=== PATIENT | female | born 1950 | race Caucasian/White ===

== ENCOUNTER 2016-11-18 07:57 | Emergency (ER) | payer BC, MEDICARE ==
--- NOTE | 2016-11-18 08:40 | UC ---
UC General HPI - HPI Summary HPI Summary: complaint of intermittent prickling feeling in her legs occurs more with sitting down and lying down before she goes to sleep lasts anywhere from 2 m-30 minutes often has itchy skin,feels itchy -especially on her back sometimes when she is in bed it lasts for approx 1 hour denies back pain,fever and chills denies numbness, weakness in her legs denies pain just random prickling concerned that she got scabies feels anxious about germs and getting infection since she had CVA 05/2016 started on lipitor and xaralto in 05/2016 has appt on 11/22/16 with her primary care provider - History of Current Complaint Chief Complaint: UCSkin Stated Complaint: BILATERAL LEG COMPLAINT Time Seen by Provider: 11/18/16 08:12 Hx Obtained From: Patient Onset/Duration: Lasting Days, Still Present - Allergy/Home Medications Allergies/Adverse Reactions: Allergies Allergy/AdvReac Type Severity Reaction Status Date / Time Sulfa Antibiotics Allergy Intermediate Rash Verified 11/18/16 08:13 Home Medications: Home Medications Atorvastatin* [Lipitor*] 40 mg PO QPM 11/18/16 [History Confirmed 11/18/16] Fluticasone NASAL SPRAY 50MCG* [Flonase NASAL SPRAY 50MCG*] 2 spray BOTH NARES BID 11/18/16 [History Confirmed 11/18/16] Rivaroxaban TAB(*) [Xarelto 20 mg] 20 mg PO QPM 11/18/16 [History Confirmed ] PMH/Surg Hx/FS Hx/Imm Hx Previously Healthy: Yes Neurological History Of: Reports: CVA - 05/2016 - Surgical History Surgical History: Yes Surgery Procedure, Year, and Place: sinus surgery - Family History Known Family History: Positive: None Negative: Cardiac Disease, Hypertension, Diabetes - Social History Occupation: Retired Lives: With Family Alcohol Use: None Substance Use Type: None Smoking Status (MU): Never Smoked Tobacco - Immunization History Most Recent Influenza Vaccination: Not the Season Review of Systems Constitutional: Negative Skin: Negative Eyes: Negative ENT: Negative Respiratory: Negative Cardiovascular: Negative Gastrointestinal: Negative Genitourinary: Negative Motor: Negative Neurovascular: Negative Musculoskeletal: Negative Neurological: Negative Psychological: Anxious All Other Systems Reviewed And Are Negative: Yes Physical Exam Triage Information Reviewed: Yes Appearance: No Pain Distress, Well-Nourished Vital Signs: Initial Vital Signs Temp 98.4 F 11/18/16 08:02 Pulse 78 11/18/16 08:02 Resp 16 11/18/16 08:02 BP 142/56 11/18/16 08:02 Vital Signs Reviewed: Yes Eyes: Positive: Conjunctiva Clear, Other: - PERRL ENT: Positive: Pharynx normal, TMs normal. Negative: Nasal congestion Neck: Positive: Supple, No Lymphadenopathy Respiratory: Positive: Lungs clear, Normal breath sounds, No respiratory distress Cardiovascular: Positive: RRR, No Murmur, Pulses Normal Abdomen Description: Positive: Nontender, No Organomegaly, Soft. Negative: CVA Tenderness (R), CVA Tenderness (L), Distended, Guarding Bowel Sounds: Positive: Present Musculoskeletal: Positive: No Edema Neurological: Positive: Alert, Other: - PERRL, EOMI, negative Romberg Psychological: Positive: Other: - anxious Skin Exam: Normal Course/Dx - Differential Dx - Multi-Symptom Differential Diagnoses: Other - anxiety, lower back pain, dermatitis Provider Diagnoses: dry skin. anxiety Discharge - Discharge Plan Condition: Stable Disposition: HOME Patient Education Materials: Anxiety (ED) Referrals: Joe Herron MD [Primary Care Provider] - Additional Instructions: You have dry skin which can cause itching. start using moisturizing lotion frequently keep your appointment with your primary care provider this week Please review your discharge instructions. If your symptoms do not improve please call your primary care provider or return to urgent care
[2016-11-18 09:52] VITALS: BP 132/64
== END 2016-11-18 09:50 | disposition home or self-care (01) ==
LOC: UCCORT 07:57
DX: L85.3 Xerosis cutis (principal); F41.9 Anxiety disorder, unspecified; Z88.2 Allergy status to sulfonamides
CPT/HCPCS: 99211; G0463

== ENCOUNTER 2017-04-02 17:43 | Emergency (ER) | payer MEDICARE, BC ==
[2017-04-02 18:09] VITALS: BP 120/55
[2017-04-02] MEDS ORDERED: Acetaminophen TAB* 325 MG PO ONE (18:46)
--- NOTE | 2017-04-02 18:52 | UC ---
Headache HPI - HPI Summary HPI Summary: 66 yo female with bitemporal BLEDSOE since about noon 5/10 nagging pressure sensation hx CVA (?ASD) on blood thinner no n/v/d no photophobia no stiff neck has had similar bledsoe's on and off for a week - History Of Current Complaint Chief Complaint: UCHeadache Stated Complaint: HEADACHE Time Seen by Provider: 04/02/17 18:20 Hx Obtained From: Patient Onset/Duration: Gradual Onset, Lasting Hours Onset Of Symptoms: Gradual Initially Headache Was: Moderate Pain Intensity: 5 Pain Scale Used: 0-10 Numeric Timing: Constant Character: Pressure Location of Headache: Temporal Aggravating Factor: Nothing Allevating Factors: Nothing Associated Signs And Symptoms: Positive: Sinus Pressure - chrinic sinus issues. Negative: Dizziness, Seizure, Nausea, Vomiting, Fever, Neck Pain, Neck Stiffness, Decreased LOC, Visual Changes - Allergies/Home Medications Allergies/Adverse Reactions: Allergies Allergy/AdvReac Type Severity Reaction Status Date / Time Sulfa Antibiotics Allergy Intermediate Rash Verified 04/02/17 18:09 PMH/Surg Hx/FS Hx/Imm Hx Previously Healthy: Yes Endocrine History: Dyslipidemia Other Cardiovascular History: ?ASD GI/ History: Gastroesophageal Reflux Other GI/ History: ULCERATIVE COLITIS Neurological History: CVA - Surgical History Surgical History: Yes Surgery Procedure, Year, and Place: sinus surgery - Family History Known Family History: Positive: None, Other - TIAs Negative: Cardiac Disease, Hypertension, Diabetes - Social History Alcohol Use: None Substance Use Type: None Smoking Status (MU): Never Smoked Tobacco - Immunization History Most Recent Influenza Vaccination: Not the Season Review of Systems Constitutional: Negative Skin: Negative Eyes: Negative ENT: Sinus Congestion Respiratory: Negative Cardiovascular: Negative Gastrointestinal: Negative Genitourinary: Negative Motor: Negative Neurovascular: Negative Musculoskeletal: Negative Neurological: Headache Psychological: Negative All Other Systems Reviewed And Are Negative: Yes Physical Exam Triage Information Reviewed: Yes Appearance: Well-Appearing, No Pain Distress, Well-Nourished Vital Signs: Initial Vital Signs Temp 98.7 F 04/02/17 17:59 Pulse 79 04/02/17 17:59 BP 120/55 04/02/17 17:59 Pulse Ox 100 04/02/17 17:59 Vital Signs Reviewed: Yes Eyes: Positive: Conjunctiva Clear, Other: - EOMI/PERRL ENT: Positive: Normal ENT inspection, Hearing grossly normal, Pharynx normal, TMs normal. Negative: Tonsillar swelling, Tonsillar exudate, Trismus, Muffled/ hoarse voice Dental Exam: Normal Neck: Positive: Supple, Nontender, No Lymphadenopathy, Other: - no bruits Respiratory: Positive: Lungs clear, Normal breath sounds, No respiratory distress, No accessory muscle use Cardiovascular: Positive: RRR, No Murmur, Pulses Normal Musculoskeletal: Positive: Strength Intact, ROM Intact Neurological: Positive: Alert, Muscle Tone Normal, Other: - normal gait/normal speech/no facial droop/no weakness Skin Exam: Normal Diagnostics - Radiology No standard instances Xray Interpretation: No Acute Changes Radiology Interpretation Completed By: Radiologist Headache Course/Dx - Differential Dx/Diagnosis Provider Diagnoses: headache of uncertain cause Discharge - Discharge Plan Condition: Stable Disposition: HOME Patient Education Materials: Acute Headache (ED) Referrals: Joe Herron MD [Primary Care Provider] - 2 Days (recheck in 1-2 days) Additional Instructions: tylenol
--- NOTE | 2017-04-02 19:07 | RAD ---
INDICATION: Headaches. History of CVA. COMPARISON: None TECHNIQUE: Noncontrast axial source images were acquired from the skull base to the vertex. FINDINGS: Ventricles/sulci: The ventricles and cisterns are normal in size and configuration for age. Brain parenchyma: There is no acute focal parenchymal finding, evidence of intracranial mass, or intracranial mass effect. There is a CSF intensity hypodensity in the left frontal white matter consistent with a prior ischemic insult. Intracranial hemorrhage:None. Extra-axial spaces: There is a probable, small (5 mm) left frontoparietal convexity subdural hygroma. Calvarium: There is no calvarial fracture or other calvarial abnormality. Scalp: There is no evidence of scalp or extracalvarial soft tissue abnormality. Paranasal sinuses/mastoid: The paranasal sinuses and mastoid air cells are clear. Other: None. IMPRESSION: NO ACUTE INTRACRANIAL FINDINGS. 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
== END 2017-04-02 20:02 | disposition home or self-care (01) ==
LOC: UCCORT 17:43
DX: R51 Headache (principal); J34.89 Other specified disorders of nose and nasal sinuses; E78.5 Hyperlipidemia, unspecified; K21.9 Gastro-esophageal reflux disease without esophagitis; Z86.73 Personal history of transient ischemic attack (TIA), and cerebral infarction without residual deficits; Z88.2 Allergy status to sulfonamides
CPT/HCPCS: 70450; 99211; G0463

== ENCOUNTER 2017-10-25 09:18 | Emergency (ER) | payer MEDICARE, BC ==
--- OUTSIDE RECORDS SUMMARY | 2017-10-25 10:38 | XMS REPORT ---
:1950 External Reference #:[id number] Author Organization [facility] Address [address] [address] Phone [phone] Care Team Providers Name Role Phone Joe Herron MD Care Team Information Financial Compliance Manager Unavailable Payers Type Date Identification Numbers Payment Provider Subscriber Medicare Primary Effective: Policy Number: Medicare Rupinder Piña 2016 [id number] Group Name: Federal [address] PayID: [id number] [place] [address] Medigap Part B Effective: Policy Number: [facility] Commercial Rupinder Quinteros 2011 [id number] Ayana Group Name: Individual [address] [address] PayID: [id number] GRETCH[address] [place] [id number] Problems Date Description Provider Status Onset: 06/27/2011 Disorders of bilirubin excretion Joe Herron MD Active Onset: 09/17/2010 Kidney stone Joe Herron MD Active Onset: 11/09/2009 Disorder of lipid metabolism Joe Herron MD Active Onset: 06/04/2007 Mitral valve disorder Joe Herron MD Active Onset: 02/23/2007 Chronic ulcerative proctitis Joe Herron MD Active Onset: 02/23/2007 Migraine with typical aura Joe Herron MD Active Onset: 06/27/2006 Disorder of biliary tract Joe Herron MD Active Onset: 06/27/2006 Gastritis Joe Herron MD Active Onset: 10/21/2005 Atopic dermatitis Joe Herron MD Active Onset: 07/15/2005 Menopausal and postmenopausal Joe Herron MD Active disorders Onset: 05/08/2005 Degenerative joint disease Joe Herron MD Active involving multiple joints Onset: 12/20/2014 Bronchiolectasis Joe Herron MD Active Onset: 11/10/2013 Chronic rhinitis Active Onset: 06/27/2015 Atrophic gastritis Joe Herron MD Active Onset: 06/27/2015 Neutropenia Joe Herron MD Active Onset: 06/04/2016 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 Onset: 06/04/2016 Ostium secundum type atrial septal Joe Herron MD Active defect Onset: 05/07/2005 Osteochondropathy Joe Herron MD Inactive Inactive: 10/15/2017 Onset: 11/10/2013 Chronic sinusitis Inactive Inactive: 10/15/2017 Onset: 11/10/2013 Hypertrophy of nasal turbinates Inactive Inactive: 10/15/2017 Family History Date Family Member(s) Problem(s) Comments Father due to eDEMA 94 () Mother due to CVA () First Son Alive And Well Siblings None Paternal Grandfather DM2 Paternal Grandmother Cancer, Breast Paternal Aunts Cancer, Colon 63 Paternal Aunts Cancer, Breast Social History Type Date Description Comments Marital Status 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 ETOH Use Denies alcohol use Smoking Patient has never smoked Allergies, Adverse Reactions, Alerts Date Description Reaction Status Severity Comments 05/07/2005 Tetracycline active GI 12/20/2014 Sulfa Drugs active Hives;SOB 05/07/2005 Amoxicillin inactive GI Medications Medication Date Status Form Strength Qnty SIG Indications Ordering Provider Calcium 600+D Active Tablets 600-400mg-U OTC 1 twice a M85.89 Digiovanna 018 nit day Joe MD Probiotic - Active OTC Digiovanna Minoo Colon Joe [facility] MD Prednisone Active Tablets 10mg 70tabs take w/ K51.20 Digiovanna 017 food Joe once MD daily as directed, taper over 4 weeks if needed for colitis flare Atorvastatin Active Tablets 20mg 90tabs 1 by I63.412 Digiovanna Calcium 017 mouth , Joe, every day E78.0 E78.9 Xarelto 06/24/2016 Active Tablets 20mg 30tabs 1 by mouth I63.412 Digiovanna, every day MD Joe with evening meal Mesalamine 08/11/2015 Active Enema 4gm K51.20 Syam,Biswarup Meclizine HCL 06/07/2015 Active Tablets 25mg 30tabs take 1 H83.09 Digiovanna, tablet by MD Joe mouth four times daily as needed for dizziness Ranitidine 12/10/2014 Active Tablets 150mg 360tabs 2 by mouth K29.70 Digiovanna, HCL twice a day MD Joe - mdd 4 K29.50 Flonase 06/21/2014 Active Suspension 50mcg/Act 16units 1 spr each J31.0 Unknown nostril twice a day Loratadine 05/25/2014 Active Tablets 10mg 1 by mouth J31.0 Digiovan every day na, as needed Joe allergies J Metronidazole 05/13/2014 Active Gel 0.75% 45gm apply to 695.3 Gould, face prn Darnell DO Balsalazide 05/19/2008 Active Capsules 750mg 270caps 3 by mouth K51.20 Digiovan Disodium three na, times a Joe, day Azathioprine Active Tablets 50mg 90tabs 3 by mouth K51.20 Digiovan once every na, day MD Joe Clindamycin 05/24/2017 Hx Capsules 150mg 15caps 1 pill 3 M27.2 Digiovan HCL - times a na, 05/29/2017 day for 5 Joe, days Ferrous 07/02/[address] Khan(65Fe) OTC 1 by mouth D64.9 Digiovan Sulfate - mg once daily na, 07/24/2016 w/ food MD Joe Prednisone 07/01/2016 Hx Tablets 10mg 35tabs Take w/ K51.21 Digiovan - food: 2 1 na, 07/16/2016 pills Joe, twice a day for 5d, 1 pill twice a day for 5 d, 1 pill once a day for 5d Atorvastatin 07/01/2016 Hx Tablets 40mg 30tabs 1 by mouth I63.41 Digiovan Calcium - every day 2 na, 11/22/2016 MD Joe E78.0 Pradaxa 05/30/2016 - Hx Capsules 150mg take one I63.412 Digiovanna, 06/24/2016 capsule by MD Joe mouth twice a day Atorvastatin 05/30/2016 - Hx Tablets 80mg take one I63.412 Digiovanna, Calcium 07/01/2016 tablet by MD Joe mouth every evening E78.0 Prednisone 04/19/2016 - Hx Tablets 10mg 42tabs w/ food: 4 K51.20 Digiovanna, 05/09/2016 pills qd for MD Joe 3 days, 3 pills qd for 5 days, 2 pills qd for 5 days , 1 pill qd x 5 days then dc(replaces prior) Prednisone 04/17/2016 - Hx Tablets 10mg 21tabs 4 pills by Luis Fernando, 04/19/2016 mouth x 2 Darnell, DO days, 3 by mouth daily x 2 days, 2 by mouth daily x 2 days, 1 by mouth daily until gone Triamcinolone 04/16/2016 - Hx Cream 0.025% 15gm apply to LEFT Gould, Acetonide 04/30/2016 foot twice a Darnell, DO day x 2 weeks routinely, then as needed Clotrimazole 04/11/2016 - Hx Cream 1% 15gm apply to LEFT B35.9 Gould, 06/12/2017 foot twice a Darnell, DO day until resolved Oxybutynin 03/20/2016 - Hx Tablets ER 5mg 30tabs 1 po daily R30.0 Gould , Chloride ER 06/12/2017 24HR Darnell, DO Levofloxacin 09/20/2015 - Hx Tablets 250mg 7tabs 1 po daily [id number] Digiovanna, 09/27/2015 for 7 days Gauri, [employer] Levofloxacin 06/27/2015 - Hx Tablets 250mg 7tabs 1 pill by Ginny Whitevanindira, 07/04/2015 mouth once MD Joe daily for 7 days Levofloxacin 05/26/2015 - Hx Tablets 250mg 7tabs 1 pill by Ginny Delongiovanindira, 06/02/2015 mouth once MD Joe daily for 7 days Omeprazole 04/21/2015 - Hx Capsules 20mg 60caps 1 by mouth 786.9 Digiovanna, 05/09/2015 DR twice a day MD Joe before meals 535.50 Levofloxacin 02/03/2015 - Hx Tablets 250mg 7tabs 1 by mouth 461.9 Digiovanna, 04/17/2015 daily for Gauri, [employer] 7 days Prednisone 01/10/2015 - Hx Tablets 10mg 60tabs 1 by mouth Unknown 02/23/2015 every morning prn Levofloxacin 12/20/2014 - Hx Tablets 250mg 7tabs 1 pill by 461.9 Digiovanna, 12/27/2014 mouth once MD Joe daily for 7 days Xyzal 11/08/2014 - Hx Tablets 5mg 30tabs 1 by mouth Unknown 04/17/2015 every day Triamcinolone 06/27/2013 - Hx Paste 0.1% 5gm apply to Digiovanna, Acetonide 06/12/2017 affected MD Joe area up to four times daily as needed Ranitidine 150 06/08/2013 - Hx Tablets 150mg 360tabs 1 or 2 by 535.50 Digiovanna, Maximum 12/10/2014 mouth Joe Hyatt MD Strength twice a day Ibuprofen - Hx Tablets 200mg 2 PO tid Digiovanna, 06/12/2017 prn Joe Hyatt MD Mesalamine-Coby - Hx Kit 4gm 1 pr qhs Digiovanna, nser 08/21/2014 Joe Hyatt MD Ventolin HFA - Hx Aerosol 108(90B 2 puffs J47.9 [place], 06/12/2017 ase) qid as MD Abner mcg/Act needed for sob Fluticasone - Hx Suspension 50mcg/A 1units 2 sprays Unknown Propionate 04/17/2015 ct each nostril every day Prednisone - Hx Tablets 10mg as Joanne Oneill 11/22/2016 directed x 12 days Fergon - Hx Tablets 240(27F D64.9 Unknown 10/03/2016 e) mg Amoxicillin - Hx Capsules 500mg 1 by mouth Unknown 06/12/2017 three times a day Immunizations CPT Code Status Date Vaccine Reaction Lot # [id number] Given 10/15/2017 Pneumococcal 23 Immunization [id number] Adult Or Immunosuppressed Patient 08156 Given 07/31/2016 Tdap (Adacel) Ages 7 And Above [id number] Only 30463 Given 07/20/2015 Prevnar 13 Pneumococal Conjugate [id number] Vaccine 28582 Given 10/21/2012 Pneumococcal 23 Immunization VIS DATE 06/06/09 Adult Or Immunosuppressed Patient 21100 Given 08/07/2009 Afluria Or Fluvirin Flu Vac Intramuscular 46609 Given 07/26/2008 Afluria Or Fluvirin Flu Vac Intramuscular 59152 Given 12/14/2004 Immunization Td 7 Yrs Or Older 61361 Refused 10/21/2017 Influenza Vac, 3 Yrs & Older, Quadrivalent, Split, Im Use 77838 Refused 06/27/2015 Prevnar 13 Pneumococal Conjugate DOESN'T WANT TODAY; MADE Vaccine EARLY AM NV FOR 11-5 Vital Signs Date Vital Result Comment 10/21/2017 Weight 114.00 lb Heart Rate 70 /min BP Systolic 116 mmHg BP Diastolic 64 mmHg Respiratory Rate 14 /min Height 61 inches 5'1" BMI (Body Mass Index) 21.5 kg/m2 10/15/2017 Weight 114.00 lb Heart Rate 72 /min BP Systolic 120 mmHg BP Diastolic 80 mmHg Respiratory Rate 18 /min Height 61 inches 5'1" BMI (Body Mass Index) 21.5 kg/m2 08/07/2017 Weight 112.00 lb Heart Rate 70 /min BP Systolic 126 mmHg BP Diastolic 68 mmHg 06/13/2017 Body Temperature 98.2 F Weight 110.00 lb Heart Rate 76 /min BP Systolic 120 mmHg BP Diastolic 68 mmHg Respiratory Rate 16 /min Height 61 inches 5'1" BMI (Body Mass Index) 20.8 kg/m2 06/02/2017 Weight 110.00 lb Heart Rate 74 /min BP Systolic 120 mmHg BP Diastolic 80 mmHg Respiratory Rate 18 /min Height 61 inches 5'1" BMI (Body Mass Index) 20.8 kg/m2 05/28/2017 Body Temperature 97.6 F Weight 107.56 lb Heart Rate 82 /min BP Systolic 128 mmHg BP Diastolic 78 mmHg Respiratory Rate 18 /min Height 61 inches 5'1" BMI (Body Mass Index) 20.3 kg/m2 05/24/2017 Body Temperature 97.7 F Weight 110.00 lb Heart Rate 72 /min BP Systolic 120 mmHg BP Diastolic 70 mmHg Respiratory Rate 18 /min Height 61 inches 5'1" BMI (Body Mass Index) 20.8 kg/m2 04/25/2017 Weight 109.00 lb Heart Rate 74 /min BP Systolic 120 mmHg BP Diastolic 76 mmHg Respiratory Rate 18 /min Height 61 inches 5'1" BMI (Body Mass Index) 20.6 kg/m2 04/04/2017 Weight 111.00 lb Heart Rate 72 /min BP Systolic 112 mmHg BP Diastolic 70 mmHg Respiratory Rate 18 /min Height 61 inches 5'1" BMI (Body Mass Index) 21.0 kg/m2 02/10/2017 Weight 113.00 lb Heart Rate 74 /min BP Systolic 132 mmHg BP Diastolic 78 mmHg Respiratory Rate 18 /min Height 61 inches 5'1" BMI (Body Mass Index) 21.3 kg/m2 11/22/2016 Weight 107.00 lb Heart Rate 72 /min BP Systolic 120 mmHg BP Diastolic 70 mmHg Respiratory Rate 18 /min Height 61 inches 5'1" BMI (Body Mass Index) 20.2 kg/m2 11/18/2016 Weight 107.00 lb Heart Rate 74 /min BP Systolic 130 mmHg BP Diastolic 80 mmHg Respiratory Rate 18 /min Height 61.25 inches 5'1.25" BMI (Body Mass Index) 20.1 kg/m2 11/08/2016 Weight 105.00 lb Heart Rate 74 /min BP Systolic 122 mmHg BP Diastolic 80 mmHg Respiratory Rate 18 /min Height 61.25 inches 5'1.25" BMI (Body Mass Index) 19.7 kg/m2 10/28/2016 Weight 106.00 lb Heart Rate 72 /min BP Systolic 120 mmHg BP Diastolic 76 mmHg Respiratory Rate 18 /min Height 61.25 inches 5'1.25" BMI (Body Mass Index) 19.9 kg/m2 10/15/2016 Body Temperature 98.5 F Weight 106.00 lb Heart Rate 74 /min BP Systolic 112 mmHg BP Diastolic 70 mmHg Respiratory Rate 17 /min Height 61.25 inches 5'1.25" BMI (Body Mass Index) 19.9 kg/m2 08/14/2016 Weight 102.00 lb Heart Rate 74 /min BP Systolic 120 mmHg BP Diastolic 80 mmHg Respiratory Rate 18 /min Height 61.25 inches 5'1.25" BMI (Body Mass Index) 19.1 kg/m2 08/10/2016 Body Temperature 97.9 F Weight 102.00 lb Heart Rate 86 /min BP Systolic 108 mmHg BP Diastolic 74 mmHg Respiratory Rate 18 /min Height 61.25 inches 5'1.25" O2 % BldC Oximetry 99 % Ra BMI (Body Mass Index) 19.1 kg/m2 08/09/2016 Body Temperature 98.2 F Weight 101.00 lb Heart Rate 74 /min BP Systolic 120 mmHg BP Diastolic 80 mmHg Respiratory Rate 18 /min Height 61.25 inches 5'1.25" BMI (Body Mass Index) 18.9 kg/m2 07/24/2016 Weight 101.00 lb Heart Rate 74 /min BP Systolic 110 mmHg BP Diastolic 80 mmHg Respiratory Rate 18 /min Height 61.25 inches 5'1.25" BMI (Body Mass Index) 18.9 kg/m2 07/01/2016 Weight 102.00 lb Heart Rate 68 /min BP Systolic 118 mmHg BP Diastolic 70 mmHg Respiratory Rate 16 /min Height 61.5 inches 5'1.50" 04/19/16 BMI (Body Mass Index) 19.0 kg/m2 06/21/2016 Weight 101.00 lb Heart Rate 72 /min BP Systolic 116 mmHg BP Diastolic 62 mmHg Respiratory Rate 18 /min Height 61.5 inches 5'1.50" BMI (Body Mass Index) 18.8 kg/m2 06/14/2016 Weight 102.00 lb Heart Rate 64 /min BP Systolic 114 mmHg BP Diastolic 70 mmHg Respiratory Rate 18 /min Height 61.5 inches 5'1.50" BMI (Body Mass Index) 19.0 kg/m2 06/04/2016 Weight 102.00 lb Heart Rate 72 /min BP Systolic 130 mmHg BP Diastolic 80 mmHg Respiratory Rate 18 /min Height 61.5 inches 5'1.50" BMI (Body Mass Index) 19.0 kg/m2 05/27/2016 Body Temperature 98.5 F Weight 104.00 lb Heart Rate 82 /min BP Systolic 110 mmHg BP Diastolic 70 mmHg Respiratory Rate 16 /min Height 61.5 inches 5'1.50" O2 % BldC Oximetry 96 % Ra BMI (Body Mass Index) 19.3 kg/m2 04/19/2016 Weight 102.00 lb Heart Rate 76 /min BP Systolic 112 mmHg BP Diastolic 62 mmHg Respiratory Rate 18 /min Height 61.5 inches 5'1.50" BMI (Body Mass Index) 19.0 kg/m2 04/16/2016 Body Temperature 97.8 F Weight 103.00 lb Heart Rate 82 /min BP Systolic 110 mmHg BP Diastolic 76 mmHg Respiratory Rate 18 /min Height 61.5 inches 5'1.50" BMI (Body Mass Index) 19.1 kg/m2 04/11/2016 Weight 110.00 lb Heart Rate 72 /min BP Systolic 118 mmHg BP Diastolic 70 mmHg Respiratory Rate 18 /min Height 61.5 inches 5'1.50" BMI (Body Mass Index) 20.4 kg/m2 03/20/2016 Body Temperature 97.3 F Weight 112.00 lb Heart Rate 72 /min BP Systolic 112 mmHg BP Diastolic 68 mmHg Respiratory Rate 18 /min 02/19/2016 Weight 109.00 lb Heart Rate 72 /min BP Systolic 124 mmHg BP Diastolic 72 mmHg Respiratory Rate 18 /min 01/02/2016 Weight 112.00 lb Heart Rate 74 /min BP Systolic 122 mmHg BP Diastolic 78 mmHg Respiratory Rate 18 /min Height 60.75 inches 5'0.75" BMI (Body Mass Index) 21.3 kg/m2 11/17/2015 Weight 122.00 lb Heart Rate 74 /min BP Systolic 120 mmHg BP Diastolic 74 mmHg Respiratory Rate 18 /min Height 60.75 inches 5'0.75" BMI (Body Mass Index) 23.2 kg/m2 10/28/2015 Body Temperature 98.1 F Weight 112.56 lb Heart Rate 78 /min BP Systolic 118 mmHg BP Diastolic 62 mmHg Respiratory Rate 18 /min 09/20/2015 Body Temperature 98.0 F Weight 118.00 lb Heart Rate 72 /min BP Systolic 132 mmHg BP Diastolic 78 mmHg Respiratory Rate 18 /min Height 60.75 inches 5'0.75" BMI (Body Mass Index) 22.5 kg/m2 08/15/2015 Body Temperature 98.5 F Weight 114.00 lb Heart Rate 72 /min BP Systolic 110 mmHg BP Diastolic 60 mmHg Respiratory Rate 18 /min Height 60.75 inches 5'0.75" BMI (Body Mass Index) 21.7 kg/m2 06/27/2015 Weight 113.00 lb Heart Rate 74 /min BP Systolic 122 mmHg L/Reg BP Diastolic 76 mmHg L/Reg Respiratory Rate 16 /min Height 60.75 inches 5'0.75" BMI (Body Mass Index) 21.5 kg/m2 06/07/2015 Weight 114.00 lb Heart Rate 66 /min BP Systolic 118 mmHg R/Reg BP Diastolic 72 mmHg R/Reg BP Systolic Sitting 110 mmHg R/Reg P: 66 BP Diastolic Sitting 62 mmHg R/Reg P: 66 BP Systolic Standing 124 mmHg R/Reg P: 84 BP Diastolic Standing 82 mmHg R/Reg P: 84 Respiratory Rate 18 /min Height 60.9 inches 5'0.90" BMI (Body Mass Index) 21.6 kg/m2 05/26/2015 Body Temperature 97.7 F Weight 112.00 lb Heart Rate 76 /min BP Systolic 108 mmHg L/Reg BP Diastolic 68 mmHg L/Reg Respiratory Rate 21 /min Height 60.9 inches 5'0.90" BMI (Body Mass Index) 21.2 kg/m2 05/09/2015 Weight 114.00 lb Heart Rate 72 /min BP Systolic 116 mmHg L/Reg BP Diastolic 68 mmHg L/Reg Respiratory Rate 17 /min Height 60.9 inches 5'0.90" BMI (Body Mass Index) 21.6 kg/m2 04/21/2015 Weight 112.00 lb Heart Rate 84 /min BP Systolic 114 mmHg L/Reg BP Diastolic 72 mmHg L/Reg Respiratory Rate 17 /min Height 60.9 inches 5'0.90" BMI (Body Mass Index) 21.2 kg/m2 04/17/2015 Weight 111.00 lb Heart Rate 72 /min BP Systolic 114 mmHg BP Diastolic 68 mmHg Respiratory Rate 18 /min Height 60.9 inches 5'0.90" BMI (Body Mass Index) 21.0 kg/m2 02/03/2015 Body Temperature 98.6 F Weight 110.00 lb Heart Rate 74 /min BP Systolic 106 mmHg BP Diastolic 58 mmHg Respiratory Rate 17 /min Height 60.9 inches 5'0.90" O2 % BldC Oximetry 93 % BMI (Body Mass Index) 20.9 kg/m2 12/20/2014 Weight 112.00 lb Up 2# Heart Rate 76 /min BP Systolic 132 mmHg R/Reg BP Diastolic 74 mmHg R/Reg Respiratory Rate 16 /min Height 60.9 inches 5'0.90" BMI (Body Mass Index) 21.2 kg/m2 11/26/2014 Weight 110.38 lb Heart Rate 72 /min BP Systolic 116 mmHg BP Diastolic 62 mmHg Respiratory Rate 18 /min 11/07/2014 Weight 112.00 lb Up 2# Heart Rate 74 /min BP Systolic 142 mmHg R/Reg BP Diastolic 72 mmHg R/Reg Respiratory Rate 17 /min Height 60.9 inches 5'0.90" BMI (Body Mass Index) 21.2 kg/m2 07/19/2014 Weight 110.00 lb Same Heart Rate 72 /min BP Systolic 136 mmHg L/Reg BP Diastolic 68 mmHg L/Reg Respiratory Rate 18 /min Height 60.9 inches 5'0.90" O2 % BldC Oximetry 98 % Ra At Rest 07/05/2014 Weight 110.50 lb Down 1# Heart Rate 72 /min BP Systolic 126 mmHg L/Reg BP Diastolic 76 mmHg L/Reg Respiratory Rate 16 /min Height 60.9 inches 5'0.90" 05/25/2014 Weight 111.00 lb Down 3# Heart Rate 78 /min BP Systolic 108 mmHg L/Reg BP Diastolic 66 mmHg L/Reg Respiratory Rate 20 /min Height 60.9 inches 5'0.90" 03/02/2014 Weight 114.00 lb Heart Rate 72 /min BP Systolic 120 mmHg BP Diastolic 78 mmHg Respiratory Rate 18 /min 02/11/2014 Body Temperature 98.1 F Weight 113.00 lb Heart Rate 80 /min BP Systolic 104 mmHg BP Diastolic 50 mmHg Respiratory Rate 18 /min Height 60.9 inches 5'0.90" Results Test Date Test Result H/L Range Note Lipid Treatment 09/29/2017 Cholesterol 96 mg/dL 50-199 1 Triglycerides 59 mg/dL 30-200 1 HDL 48 mg/dL 35-85 1, 2 Chol/ HDL Ratio 2.0 ratio Low 3.7-5.6 1 VLDL 12 mg/dL 2-29 1 LDL (Calc) 37 mg/dL 20-99 1, 3 Alt 29 U/L 3-42 1 Ast 29 U/L 8-42 1 CBC With Auto Diff 09/29/2017 WBC 5.1 K/uL 4.1-11.0 1 RBC 3.45 M/uL Low 4.00-5.40 1 Hemoglobin 13.0 gm/dL 12.0-16.0 1 Hematocrit 37.9 % 36.0-47.0 1 MCV 109.9 fL High 80.0-97.0 1 MCH 37.8 pg High 27.0-32.0 1 MCHC 34.4 g/dL 32.0-36.0 1 RDW 17.3 % High 11.5-14.5 1 PLT Count 292 K/ul 140-400 1 MPV 9.2 FL 7.1-10.7 1 Neutrophil 69.4 % 35.0-75.0 1 Lymphocyte 18.6 % 16.0-52.0 1 Monocyte 8.1 % 2.0-10.0 1 Eosinophil 2.9 % 0.0-5.0 1 Basophil 1.0 % 0.0-4.0 1 Abs Neutrophils 3.6 K/uL 2.1-8.0 1 Abs Lymphocytes 1.0 K/uL 0.8-5.5 1 Abs Monocytes 0.4 K/uL 0.1-1.0 1 Abs Eosinophils 0.1 K/uL 0.0-0.5 1 Abs Basophils 0.0 K/uL 0.0-0.3 1 Laboratory test finding 09/29/2017 Vitamin D 25 Hydroxy 52 ng/mL 30-100 1, 4 Basic (BMP) 09/29/2017 Sodium 140 mmol/L 135-146 1, 5 Potassium 3.9 mmol/L 3.5-5.2 1 Chloride# 100 mmol/L 97-110 1, 6 Carbon Dioxide 31 mmol/L 24-34 1 Glucose 84 mg/dL 70-105 1 BUN 13 mg/dL 6-26 1 Creatinine 0.7 mg/dL 0.5-1.4 1 Calcium 9.7 mg/dL 8.5-10.2 1 Non Kathleen Egfr >60 >60 1, 7 Kathleen Egfr >60 >60 1, 8 Anion Gap 9 mmol/L 7-16 1, 9 CBC With Auto Diff 08/07/2017 WBC 4.6 K/uL 4.1-11.0 RBC 3.60 M/uL Low 4.00-5.40 Hemoglobin 13.7 gm/dL 12.0-16.0 Hematocrit 40.4 % 36.0-47.0 MCV 112.4 fL High 80.0-97.0 MCH 38.0 pg High 27.0-32.0 MCHC 33.8 g/dL 32.0-36.0 RDW 15.8 % High 11.5-14.5 PLT Count 282 K/ul 140-400 MPV 9.7 FL 7.1-10.7 Neutrophil 74.4 % 35.0-75.0 Lymphocyte 15.6 % Low 16.0-52.0 Monocyte 5.8 % 2.0-10.0 Eosinophil 3.6 % 0.0-5.0 Basophil 0.6 % 0.0-4.0 Abs Neutrophils 3.4 K/uL 2.1-8.0 Abs Lymphocytes 0.7 K/uL Low 0.8-5.5 Abs Monocytes 0.3 K/uL 0.1-1.0 Abs Eosinophils 0.2 K/uL 0.0-0.5 Abs Basophils 0.0 K/uL 0.0-0.3 Laboratory test finding 08/07/2017 Ferritin 77.7 ng/ml 11.0-306.0 Iron, Total 124 g/dL 50-170 Vitamin B12 415 pg/mL 180-914 Laboratory test 06/13/2017 Urine Culture Microbiology res 10 finding <SEE NOTE> Affirm 06/13/2017 Trichomonas Negative Negative Vaginalis Gardnerella Vaginalis Negative Negative Mony Species Negative Negative Lipid Treatment 03/26/2017 Cholesterol 69 mg/dL 50-199 11 Triglycerides 38 mg/dL 30-200 11 HDL 37 mg/dL 35-85 11, 12 Chol/ HDL Ratio 1.9 ratio Low 3.7-5.6 11 VLDL 8 mg/dL 2-29 11 LDL (Calc) 25 mg/dL 20-99 11, 13 Alt 24 U/L 3-42 11 Ast 30 U/L 8-42 11 CBC With Auto Diff 03/26/2017 WBC 3.3 K/uL Low 4.1-11.0 11 RBC 3.46 M/uL Low 4.00-5.40 11 Hemoglobin 12.8 gm/dL 12.0-16.0 11 Hematocrit 38.4 % 36.0-47.0 11 MCV 111.0 fL High 80.0-97.0 11 MCH 37.0 pg High 27.0-32.0 11 MCHC 33.4 g/dL 32.0-36.0 11 RDW 15.8 % High 11.5-14.5 11 PLT Count 242 K/ul 140-400 11 Neutrophil 69.3 % 35.0-75.0 11 Lymphocyte 18.7 % 16.0-52.0 11 Monocyte 5.9 % 2.0-10.0 11 Eosinophil 5.0 % 0.0-5.0 11 Basophil 1.1 % 0.0-4.0 11 Abs Neutrophils 2.3 K/uL 2.1-8.0 11 Abs Lymphocytes 0.6 K/uL Low 0.8-5.5 11 Abs Monocytes 0.2 K/uL 0.1-1.0 11 Abs Eosinophils 0.2 K/uL 0.0-0.5 11 Abs Basophils 0.0 K/uL 0.0-0.3 11 Basic (BMP) 03/26/2017 Sodium 143 mmol/L 135-146 11, 14 Potassium 3.9 mmol/L 3.5-5.2 11 Chloride# 105 mmol/L 97-110 11, 15 Carbon Dioxide 31 mmol/L 24-34 11 Glucose 84 mg/dL 70-105 11 BUN 16 mg/dL 6-26 11 Creatinine 0.7 mg/dL 0.5-1.4 11 Calcium 9.7 mg/dL 8.5-10.2 11 Non Kathleen Egfr >60 >60 11, 16 Kathleen Egfr >60 >60 11, 17 Anion Gap 7 mmol/L 7-16 11, 18 Laboratory test finding 02/10/2017 Cytology Fluid Specimen SEE NOTE 19 Basic Metabolic Panel 12/30/2016 Glucose 122 mg/dL High 74-106 20 BUN 18 mg/dL 7-18 20 Creatinine 0.7 mg/dL 0.6-1.3 20 Glom Filtration Rate, Estimate >60 mL/min >60 20 If >60 mL/min >60 20, 21 BUN/Creat 25.7 ratio 20 Sodium 140 mmol/L 136-145 20 Potassium 4.9 mmol/L 3.5-5.1 20 Chloride 107 mmol/L 98-107 20 Carbon Dioxide 28 mmol/L 21-32 20 Anion Gap 5 mEq/L Low 8-16 20 Calcium 9.5 mg/dL 8.5-10.1 20 Lipid Treatment 11/15/2016 Cholesterol 76 mg/dL 50-199 22 Triglycerides 55 mg/dL 30-200 22 HDL 39 mg/dL 35-85 22, 23 Chol/ HDL Ratio 2.0 ratio Low 3.7-5.6 22 VLDL 11 mg/dL 2-29 22 LDL (Calc) 26 mg/dL 20-99 22, 24 Alt 25 U/L 3-42 22 Ast 33 U/L 8-42 22 CBC With Auto Diff 11/15/2016 WBC 4.3 K/uL 4.1-11.0 22 RBC 3.45 M/uL Low 4.00-5.40 22 Hemoglobin 13.3 gm/dL 12.0-16.0 22 Hematocrit 38.8 % 36.0-47.0 22 MCV 112.5 fL High 80.0-97.0 22 MCH 38.4 pg High 27.0-32.0 22 MCHC 34.1 g/dL 32.0-36.0 22 RDW 15.6 % High 11.5-14.5 22 PLT Count 291 K/ul 140-400 22 Neutrophil 75.5 % High 35.0-75.0 22 Lymphocyte 17.5 % 16.0-52.0 22 Monocyte 3.7 % 2.0-10.0 22 Eosinophil 1.4 % 0.0-5.0 22 Basophil 1.9 % 0.0-4.0 22 Abs Neutrophils 3.2 K/uL 2.1-8.0 22 Abs Lymphocytes 0.8 K/uL 0.8-5.5 22 Abs Monocytes 0.2 K/uL 0.1-1.0 22 Abs Eosinophils 0.1 K/uL 0.0-0.5 22 Abs Basophils 0.1 K/uL 0.0-0.3 22 CBC With Auto Diff 09/23/2016 WBC 3.7 K/uL Low 4.1-11.0 25 RBC 3.39 M/uL Low 4.00-5.40 25 Hemoglobin 13.4 gm/dL 12.0-16.0 25 Hematocrit 39.9 % 36.0-47.0 25 MCV 117.6 fL High 80.0-97.0 25 MCH 39.6 pg High 27.0-32.0 25 MCHC 33.6 g/dL 32.0-36.0 25 RDW 17.5 % High 11.5-14.5 25 PLT Count 443 K/ul High 140-400 25 Neutrophil 72.8 % 35.0-75.0 25 Lymphocyte 15.6 % Low 16.0-52.0 25 Monocyte 6.6 % 2.0-10.0 25 Eosinophil 2.6 % 0.0-5.0 25 Basophil 2.4 % 0.0-4.0 25 Abs Neutrophils 2.7 K/uL 2.1-8.0 25 Abs Lymphocytes 0.6 K/uL Low 0.8-5.5 25 Abs Monocytes 0.2 K/uL 0.1-1.0 25 Abs Eosinophils 0.1 K/uL 0.0-0.5 25 Abs Basophils 0.1 K/uL 0.0-0.3 25 Laboratory test finding 09/23/2016 Ferritin 63.0 ng/ml 11.0-306.0 25 Iron, Total 94 g/dL 50-170 25 Vitamin B12 435 pg/mL 180-914 25 Folate 23.2 ng/ml 5.9-24.8 25 CBC With Auto Diff 07/02/2016 WBC 6.6 K/uL 4.1-11.0 26 RBC 2.46 M/uL Low 4.00-5.40 26 Hemoglobin 9.7 gm/dL Low 12.0-16.0 26 Hematocrit 28.2 % Low 36.0-47.0 26 MCV 114.7 fL High 80.0-97.0 26 MCH 39.6 pg High 27.0-32.0 26 MCHC 34.5 g/dL 32.0-36.0 26 RDW 16.9 % High 11.5-14.5 26 PLT Count 288 K/ul 140-400 26 Neutrophil 81.9 % High 35.0-75.0 26 Lymphocyte 13.4 % Low 16.0-52.0 26 Monocyte 4.1 % 2.0-10.0 26 Eosinophil 0.2 % 0.0-5.0 26 Basophil 0.4 % 0.0-4.0 26 Abs Neutrophils 5.4 K/uL 2.1-8.0 26 Abs Lymphocytes 0.9 K/uL 0.8-5.5 26 Abs Monocytes 0.3 K/uL 0.1-1.0 26 Abs Eosinophils 0.0 K/uL 0.0-0.5 26 Abs Basophils 0.0 K/uL 0.0-0.3 26 Lipid Treatment 07/02/2016 Cholesterol 93 mg/dL 50-199 26 Triglycerides 55 mg/dL 30-200 26 HDL 33 mg/dL Low 35-85 26, 27 Chol/ HDL Ratio 2.8 ratio Low 3.7-5.6 26 VLDL 11 mg/dL 2-29 26 LDL (Calc) 49 mg/dL 20-99 26, 28 Alt 17 U/L 3-42 26 Ast 22 U/L 8-42 26 Laboratory test finding 07/02/2016 Vit D,25 Hydroxy 45 ng/mL 31-100 26 Basic (BMP) 07/02/2016 Sodium 138 mmol/L 134-142 26 Potassium 3.8 mmol/L 3.5-5.2 26 Chloride 104 mmol/L 97-109 26 Carbon Dioxide 28 mmol/L 24-34 26 Glucose 97 mg/dL 70-105 26 BUN 12 mg/dL 6-26 26 Creatinine 0.5 mg/dL 0.5-1.4 26 Calcium 9.7 mg/dL 8.5-10.2 26 Anion Gap 10 mmol/L 6-14 26 Non Kathleen Egfr >60 >60 26, 29 Kathleen Egfr >60 >60 26, 30 Laboratory test finding 06/25/2016 Urine Culture Microbiology res <SEE 31, 32 NOTE> Rout Urine W/ Micro -RL 06/25/2016 Color CHAS Appearance CLOUDY Spec Grav Urine 1.022 (1.003-1.030) PH Urine 8.0 High (5.0-7.5) Leuk Esterase NEGATIVE (Neg) Nitrite Urine NEGATIVE (Neg) Protein Urine NEGATIVE (Neg) Glucose Urine NEGATIVE (Neg) Ketone Urine NEGATIVE (Neg) Urobilinogen 1.0 mg/dL (0-1.0) Blood/HGB Urine NEGATIVE (Neg) Urine WBC 0-2 [HPF] (0-5) Urine RBC NONE SEEN [HPF] (0-2) Bacteria 2+ [HPF] Mucus 3+ [HPF] 33 Laboratory test finding 06/25/2016 Bilirubin Urine NEGATIVE (Neg) 34 Cytology [facility] SEE NOTE 35 Rout Urine W/ Micro -RL 06/18/2016 Color CHAS Appearance CLOUDY Spec Grav Urine 1.014 (1.003-1.030) PH Urine 6.0 (5.0-7.5) Leuk Esterase NEGATIVE (Neg) Nitrite Urine NEGATIVE (Neg) Protein Urine 1+ (Neg) Glucose Urine NEGATIVE (Neg) Ketone Urine NEGATIVE (Neg) Urobilinogen 0.2 mg/dL (0-1.0) Bilirubin Urine NEGATIVE (Neg) Blood/HGB Urine 3+ (Neg) Urine WBC 3-5 [HPF] (0-5) Urine RBC * 100-150 [HPF] (0-2) Epithelial Cells 1+ [HPF] Bacteria 1+ [HPF] Mucus 1+ [HPF] 36 Laboratory test finding 06/18/2016 Cytology [facility] SEE NOTE 37 Laboratory test finding 06/18/2016 Urine Culture Microbiology res <SEE 38 NOTE> Rout Urine W/ Micro -RL 06/14/2016 Color CHAS 39 Appearance CLEAR 39 Spec Grav Urine 1.014 (1.003-1.030) 39 PH Urine 6.0 (5.0-7.5) 39 Leuk Esterase NEGATIVE (Neg) 39 Nitrite Urine NEGATIVE (Neg) 39 Protein Urine NEGATIVE (Neg) 39 Glucose Urine NEGATIVE (Neg) 39 Ketone Urine NEGATIVE (Neg) 39 Urobilinogen 0.2 mg/dL (0-1.0) 39 Bilirubin Urine NEGATIVE (Neg) 39 Blood/HGB Urine 2+ (Neg) 39 Epithelial Cells NEGATIVE [HPF] (Neg) 39 Hyaline Casts 3.6 [LPF] (0-5) 39 Bacteria NEGATIVE [HPF] (Neg) 39 Urine WBC 2.1 [HPF] (0-8) 39 Urine RBC 10.9 [HPF] High (0-3) 39, 40 Comprehensive Metabolic Panel 05/27/2016 Glucose 101 mg/dL 74-106 41 BUN 10 mg/dL 7-18 41 Creatinine 0.7 mg/dL 0.6-1.3 41 Glom Filtration Rate, Estimate >60 mL/min >60 41 If >60 mL/min >60 41, 42 BUN/Creat 14.2 ratio 41 Sodium 138 mmol/L 136-145 41 Potassium 4.2 mmol/L 3.5-5.1 41 Chloride 104 mmol/L 98-107 41 Carbon Dioxide 26 mmol/L 21-32 41 Anion Gap 8 mEq/L 8-16 41 Calcium 8.8 mg/dL 8.5-10.1 41 Total Protein 7.2 g/dL 6.4-8.2 41 Albumin 3.8 g/dL 3.4-5.0 41 Globulin 3.4 g/dL 1.9-4.3 41 Alb/Glob 1.1 ratio 41 Bilirubin,Total 4.5 mg/dL High 0.2-1.0 41 Sgot/Ast 25 U/L 15-37 41 SGPT/Alt 23 U/L 12-78 41 Alkaline Phosphatase 92 U/L 45-117 41 Laboratory test finding 05/27/2016 CK 52 U/L 26-192 41 Troponin-I < 0.015 ng/mL 41, 43 CBS W/Automated Diff 05/27/2016 White Blood Count 5.0 K/uL 3.1-10.7 41 Red Blood Count 3.32 M/uL Low 3.90-5.40 41 Hemoglobin 13.6 gm/dL 11.6-15.8 41 Hematocrit 38.1 % 36.0-46.1 41 Mean Cell Volume 114.8 fl High 80.9-99.0 41 Mean Corpuscular HGB 41.0 pg High 25.9-32.7 41 Mean Corpuscular HGB Conc 35.7 g/dL High 30.8-34.3 41 Platelet Count 285 K/uL 155-360 41 Red Cell Distri Width SD 66.4 fl High 3-47 41 Red Cell Distri Width %CV 16.1 % High 11.7-14.4 41 Mean Platelet Volume 10.1 fL 8.9-12.4 41 Neut% 79.0 % High 40.4-72.8 41 Lymph % 11.2 % Low 17.0-46.1 41 Centre % 8.6 % 4.3-13.2 41 Eo% 0.6 % 0.0-6.6 41 Bas% 0.6 % 0.0-1.1 41 Neut# 3.94 K/uL 1.8-7.0 41 Lymph # 0.56 K/uL Low 1.8-7.0 41 Centre # 0.43 K/uL 0.3-0.9 41 Eos # 0.03 K/uL 0.0-0.5 41 Baso # 0.03 K/uL 0.0-0.1 41 Slide Review 05/27/2016 Slide Review . 41, 44 RBC Morphology Only 05/27/2016 Anisocytosis 0-1+ 41 Macrocytosis 2+ 41 Protime 05/27/2016 Protime 13.2 seconds 12.0-14.4 41 Inr 1.0 0.9-1.1 41, 45 Laboratory test 05/27/2016 Act Partial 28.2 seconds 23.4-35.0 41, 46 finding Thrombo Time Laboratory test 05/27/2016 Glucose,Bedside 93 mg/dL 70-110 41, 47 finding Hepatic Panel (LFT) 04/24/2016 Total Protein 5.9 g/dL Low 6.0-8.0 48 Albumin 3.7 g/dL 3.6-4.9 48 Total Bilirubin 2.3 Consistent w <SEE NOTE> mg/dL High 0.1-1.3 48, 49 Direct Bilirubin 0.3 mg/dL 0.0-0.4 48 Alkaline Phosphatase 66 U/L 24-140 48 Alt 25 U/L 3-42 48 Ast 21 U/L 8-42 48 Laboratory test 04/19/2016 Wound Culture SEE NOTE 50, 51 finding Laboratory test 04/19/2016 Anaerobic Culture SPECIMEN 52 finding DESCRI> CBC With Auto Diff 04/16/2016 WBC 7.5 K/uL 4.1-11.0 53 RBC 3.44 M/uL Low 4.00-5.40 53 Hemoglobin 13.8 gm/dL 12.0-16.0 53 Hematocrit 40.0 % 36.0-47.0 53 MCV 116.2 fL High 80.0-97.0 53 MCH 40.3 pg High 27.0-32.0 53 MCHC 34.6 g/dL 32.0-36.0 53 RDW 17.7 % High 11.5-14.5 53 PLT Count 286 K/ul 140-400 53 Neutrophil 97.4 % High 35.0-75.0 53 Lymphocyte 0.7 % Low 16.0-52.0 53 Monocyte 1.4 % Low 2.0-10.0 53 Eosinophil 0.0 % 0.0-5.0 53 Basophil 0.5 % 0.0-4.0 53 Abs Neutrophils 7.3 K/uL 2.1-8.0 53 Abs Lymphocytes 0.0 K/uL Low 0.8-5.5 53 Abs Monocytes 0.1 K/uL 0.1-1.0 53 Abs Eosinophils 0.0 K/uL 0.0-0.5 53 Abs Basophils 0.0 K/uL 0.0-0.3 53 Comprehensive Metabolic (CMP) 04/16/2016 Sodium 134 mmol/L 134-142 53 Potassium 4.6 mmol/L 3.5-5.2 53 Chloride 97 mmol/L 97-109 53 Carbon Dioxide 27 mmol/L 24-34 53 Glucose 124 mg/dL High 70-105 53 BUN 40 mg/dL High 6-26 53 Creatinine 0.9 mg/dL 0.5-1.4 53 Calcium 10.0 mg/dL 8.5-10.2 53 Total Protein 7.2 g/dL 6.0-8.0 53 Albumin 4.7 g/dL 3.6-4.9 53 Globulin 2.5 g/dL 2.0-3.5 53 A/G Ratio 1.9 Ratio 1.0-2.2 53 Total Bilirubin 5.5 Results veri <SEE NOTE> mg/dL High 0.1-1.3 53, 54 Alkaline Phosphatase 92 U/L 24-140 53 Alt 33 U/L 3-42 53 Ast 38 U/L 8-42 53 Anion Gap 15 mmol/L High 6-14 53 Kathleen Egfr >60 >60 53, 55 Non Kathleen Egfr >60 >60 53, 56 Laboratory test 03/20/2016 Urine Culture Microbiology res 57 finding <SEE NOTE> Affirm 03/20/2016 Trichomonas Negative Negative Vaginalis Gardnerella Vaginalis Negative Negative Mony Species Negative Negative CBC With Auto Diff 02/02/2016 WBC 3.8 K/uL Low 4.1-11.0 58 RBC 2.83 M/uL Low 4.00-5.40 58 Hemoglobin 11.4 gm/dL Low 12.0-16.0 58 Hematocrit 32.6 % Low 36.0-47.0 58 MCV 115.0 fL High 80.0-97.0 58 MCH 40.1 pg High 27.0-32.0 58 MCHC 34.9 g/dL 32.0-36.0 58 RDW 17.3 % High 11.5-14.5 58 PLT Count 275 K/ul 140-400 58 Neutrophil 70.5 % 35.0-75.0 58 Lymphocyte 14.8 % Low 16.0-52.0 58 Monocyte 6.9 % 2.0-10.0 58 Eosinophil 6.8 % High 0.0-5.0 58 Basophil 1.0 % 0.0-4.0 58 Abs Neutrophils 2.7 K/uL 2.1-8.0 58 Abs Lymphocytes 0.6 K/uL Low 0.8-5.5 58 Abs Monocytes 0.3 K/uL 0.1-1.0 58 Abs Eosinophils 0.3 K/uL 0.0-0.5 58 Abs Basophils 0.0 K/uL 0.0-0.3 58 Laboratory test finding 02/02/2016 Ferritin 91.6 ng/ml 11.0-306.0 58 Iron, Total 92 g/dL 50-170 58 Vitamin B12 326 pg/mL 180-914 58 Folate 20.8 ng/ml 5.9-24.8 58 Laboratory test finding 01/17/2016 Blood Smear Review - MD See Note 59 Lipid Treatment 12/21/2015 Cholesterol 160 mg/dL 50-199 60 Triglycerides 68 mg/dL 30-200 60 HDL 37 mg/dL 35-85 60, 61 Chol/ HDL Ratio 4.3 ratio 3.7-5.6 60 VLDL 14 mg/dL 2-29 60 LDL (Calc) 109 mg/dL High 20-99 60, 62 Alt 36 U/L 3-42 60 Ast 32 U/L 8-42 60 CBC With Auto Diff 12/21/2015 WBC 3.8 K/uL Low 4.1-11.0 60 RBC 3.12 M/uL Low 4.00-5.40 60 Hemoglobin 11.7 gm/dL Low 12.0-16.0 60 Hematocrit 36.2 % 36.0-47.0 60 MCV 116.1 fL High 80.0-97.0 60 MCH 37.6 pg High 27.0-32.0 60 MCHC 32.4 g/dL 32.0-36.0 60 RDW 18.6 % High 11.5-14.5 60 PLT Count 285 K/ul 140-400 60 Manual Differential 12/21/2015 Neutrophils 70 % 35-75 60 Band 4 % 0-11 60 Lymphocytes 13 % Low 16-52 60 Monocytes 11 % High 0-8 60 Eosinophils 2 % 0-5 60 Basophils 0 % 0-4 60 Platelet Estimate Normal Normal 60 RBC Morphology Normal Normal 60 Macrocytosis 2+ None Seen 60 Abs Neutrophils# 2.7 K/ul 1.8-7.7 60 Abs Lymphocytes# 0.5 K/ul Low 1.2-4.8 60 Abs Monocytes# 0.4 K/ul 0.0-0.8 60 Abs Eosinophils# 0.1 K/ul 0.0-0.5 60 Abs Basophils# 0.0 K/ul 0.0-0.3 60 Abs BandCells# 0.2 K/ul 0.0-1.2 60 Laboratory test 10/28/2015 Throat PO Culture SPECIMEN DESCRI> 63 finding Lipid Treatment 09/28/2015 Cholesterol 204 mg/dL High 50-199 64 Triglycerides 93 mg/dL 30-200 64 HDL 44 mg/dL 35-85 64, 65 Chol/ HDL Ratio 4.6 ratio 3.7-5.6 64 VLDL 19 mg/dL 2-29 64 LDL (Calc) 141 mg/dL High 20-99 64, 66 Alt 12 U/L 3-42 64 Ast 21 U/L 8-42 64 CBC With Auto Diff 09/28/2015 WBC 4.7 K/uL 4.1-11.0 64 RBC 3.42 M/uL Low 4.00-5.40 64 Hemoglobin 13.1 gm/dL 12.0-16.0 64 Hematocrit 40.0 % 36.0-47.0 64 MCV 116.7 fL High 80.0-97.0 64 MCH 38.2 pg High 27.0-32.0 64 MCHC 32.8 g/dL 32.0-36.0 64 RDW 16.1 % High 11.5-14.5 64 PLT Count 367 K/ul 140-400 64 Manual Differential 09/28/2015 Neutrophils 74 % 35-75 64 Lymphocytes 18 % 16-52 64 Monocytes 5 % 0-8 64 Eosinophils 3 % 0-5 64 Basophils 0 % 0-4 64 Platelet Estimate Normal Normal 64 RBC Morphology Normal Normal 64 Anisocytosis 2+ None Seen 64 Macrocytosis 2+ None Seen 64 Abs Neutrophils# 3.5 K/ul 1.8-7.7 64 Abs Lymphocytes# 0.8 K/ul Low 1.2-4.8 64 Abs Monocytes# 0.2 K/ul 0.0-0.8 64 Abs Eosinophils# 0.1 K/ul 0.0-0.5 64 Abs Basophils# 0.0 K/ul 0.0-0.3 64 Lipid 06/22/2015 Cholesterol 200 mg/dL High 50-199 67 Triglycerides 135 mg/dL 30-200 67 HDL 37 mg/dL 35-85 67, 68 Chol/ HDL Ratio 5.4 ratio 3.7-5.6 67 VLDL 27 mg/dL 2-29 67 LDL (Calc) 136 mg/dL High 20-99 67, 69 Basic (BMP) 06/22/2015 Sodium 139 mmol/L 134-142 67 Potassium 4.2 mmol/L 3.5-5.2 67 Chloride 103 mmol/L 97-109 67 Carbon Dioxide 29 mmol/L 24-34 67 Glucose 78 mg/dL 70-105 67 BUN 12 mg/dL 6-26 67 Creatinine 0.6 mg/dL 0.5-1.4 67 Calcium 10.0 mg/dL 8.5-10.2 67 Anion Gap 11 mmol/L 6-14 67 Non Kathleen Egfr >60 >60 67, 70 Kathleen Egfr >60 >60 67, 71 CBC With Auto Diff 06/22/2015 WBC 3.4 K/uL Low 4.1-11.0 67 RBC 3.26 M/uL Low 4.00-5.40 67 Hemoglobin 12.5 gm/dL 12.0-16.0 67 Hematocrit 36.8 % 36.0-47.0 67 MCV 113.1 fL High 80.0-97.0 67 MCH 38.3 pg High 27.0-32.0 67 MCHC 33.9 g/dL 32.0-36.0 67 RDW 15.8 % High 11.5-14.5 67 PLT Count 272 K/ul 140-400 67 Neutrophil 69.1 % 35.0-75.0 67 Lymphocyte 17.9 % 16.0-52.0 67 Monocyte 6.4 % 2.0-10.0 67 Eosinophil 5.2 % High 0.0-5.0 67 Basophil 1.4 % 0.0-4.0 67 Abs Neutrophils 2.4 K/uL 2.1-8.0 67 Abs Lymphocytes 0.6 K/uL Low 0.8-5.5 67 Abmon 0.2 K/uL 0.1-1.0 67 Abs Eosinophils 0.2 K/uL 0.0-0.5 67 Abs Basophils 0.0 K/uL 0.0-0.3 67 Hepatic Panel (LFT) 06/22/2015 Total Protein 6.4 g/dL 6.0-8.0 67 Albumin 4.4 g/dL 3.6-4.9 67 Total Bilirubin 3.3 mg/dL High 0.1-1.3 67 Direct Bilirubin 0.3 mg/dL 0.0-0.4 67 Alkaline Phosphatase 90 U/L 24-140 67 Alt 12 U/L 3-42 67 Ast 21 U/L 8-42 67 Laboratory test finding 04/17/2015 Pap Smear Thin Prep SEE NOTE 72 Manual Differential 12/12/2014 Neutrophils 91 % High 35-75 73 Lymphocytes 6 % Low 16-52 73 Monocytes 3 % 0-8 73 Eosinophils 0 % 0-5 73 Basophils 0 % 0-4 73 Platelet Estimate Normal Normal 73 RBC Morphology Normal Normal 73 Anisocytosis 2+ None Seen 73 Macrocytosis 2+ None Seen 73 Abs Neutrophils# 8.4 K/ul High 1.8-7.7 73 Abs Lymphocytes# 0.6 K/ul Low 1.2-4.8 73 Abs Monocytes# 0.3 K/ul 0.0-0.8 73 Abs Eosinophils# 0.0 K/ul 0.0-0.5 73 Abs Basophils# 0.0 K/ul 0.0-0.3 73 Hepatic Panel (LFT) 12/12/2014 Total Protein 6.6 g/dL 6.0-8.0 73 Albumin 4.5 g/dL 3.6-4.9 73 Total Bilirubin 2.5 mg/dL High 0.1-1.3 73 Direct Bilirubin 0.3 mg/dL 0.0-0.4 73 Alkaline Phosphatase 86 U/L 24-140 73 Alt 11 U/L 3-42 73 Ast 15 U/L 8-42 73 Lipid 12/12/2014 Cholesterol 175 mg/dL 50-199 73 Triglycerides 94 mg/dL 30-200 73 HDL 54 mg/dL 35-85 73, 74 Chol/ HDL Ratio 3.2 ratio Low 3.7-5.6 73 VLDL 19 mg/dL 2-29 73 LDL (Calc) 102 mg/dL High 20-99 73, 75 Laboratory test finding 12/12/2014 Vit D,25 Hydroxy 62 ng/mL 31-100 73 CBC With Auto Diff 12/12/2014 WBC 9.2 K/uL 4.1-11.0 73 RBC 3.20 M/uL Low 4.00-5.40 73 Hemoglobin 12.4 gm/dL 12.0-16.0 73 Hematocrit 37.2 % 36.0-47.0 73 MCV 116.3 fL High 80.0-97.0 73 MCH 38.8 pg High 27.0-32.0 73 MCHC 33.3 g/dL 32.0-36.0 73 RDW 18.4 % High 11.5-14.5 73 PLT Count 352 K/ul 140-400 73 Neutrophil 95.8 % High 35.0-75.0 73 Lymphocyte 2.1 % Low 16.0-52.0 73 Monocyte 1.1 % Low 2.0-10.0 73 Eosinophil 0.1 % 0.0-5.0 73 Basophil 0.9 % 0.0-4.0 73 Abs Neutrophils 8.9 K/uL High 2.1-8.0 73 Abs Lymphocytes 0.2 K/uL Low 0.8-5.5 73 Abmon 0.1 K/uL 0.1-1.0 73 Abs Eosinophils 0.0 K/uL 0.0-0.5 73 Abs Basophils 0.1 K/uL 0.0-0.3 73 Lipid Panel 05/18/2014 Chol/HDL Ratio 4.3 ratio Cholesterol 173.0 mg/dL 50.0-199.0 HDL 40.0 mg/dL 29.0-86.0 LDL, Calculated 114.0 mg/dL 20.0-129.0 Triglycerides 95.0 mg/dL 30.0-249.0 vLDL 19.0 ng/dL Laboratory test finding 05/18/2014 Alt 12.0 U/L 9.0-52.0 Anisocytosis 1+ Ast 15.0 U/L 14.0-36.0 BUN 10.0 mg/dL 7.0-18.0 BUN/Creat Ratio 14.3 ratio 12.0-20.0 Band% 6 % 0-8 Basophil% 3 % High 0-2 Calcium 10.1 mg/dL 8.7-10.5 Chloride 104.0 mmol/L 98.0-107.0 Co2 29.0 mmol/L 22.0-30.0 Creatinine-Serum 0.7 mg/dL 0.7-1.2 Eosinophil% 6 % High 0-5 Glucose 90.0 mg/dL 75.0-110.0 Hematocrit 35.2 % Low 36.0-46.1 Hemoglobin 11.9 gm/dL 11.6-15.8 Lymph% 8 % Low 17-56 Macrocytosis 2+ Mean Cell Volume 113.5 fl High 80.9-99.0 Mean Corpuscular HGB 38.4 pg High 25.9-32.7 Mean Corpuscular HGB Conc 33.8 g/dL 30.8-34.3 Mean Platelet Volume 10.1 fL 8.9-12.4 Monocyte% 6 % 0-10 Neutrophils% 71 % 33-73 Platelet Count 458 K/uL High 155-360 Platelet Estimate Mod Increase Polychromasia 0-1+ Potasium 4.4 mmol/L 3.6-5.0 Red Blood Count 3.10 M/uL Low 3.90-5.40 Red Cell Distri Width %CV 16.5 % High 11.7-14.4 Sodium 141.0 mmil/L 137.0-145.0 Total Cells Counted 100 #CELLS White Blood Count 4.6 K/uL 3.1-10.7 eGFR 89.8 Hepatic Function Panel LFT 01/21/2014 Albumin 4.0 g/dL 3.5-5.0 Alk. Phos. 96.0 U/L 30.0-126.0 Alt 7.0 U/L Low 9.0-52.0 Ast 17.0 U/L 14.0-36.0 Total Bilirubin 2.5 mg/dL High 0.2-1.3 Total Protein 6.4 g/dL 6.3-8.2 Laboratory test finding 01/21/2014 % Baso. 1.3 % 0.0-2.0 % Eos. 6.0 % High 0.0-4.0 % Lymph 22 % 20-44 % Centre 7.0 % 2.0-10.0 % Alanna 64 % 50-70 Absolute Baso. 0.1 K/ul 0.0-0.3 Absolute Eos. 0.3 K/ul 0.0-0.5 Absolute Lymph. 1.1 K/ul 0.8-4.8 Absolute Centre. 0.3 K/ul 0.1-1.0 Absolute Alanna. 3.09 K/ul 2.05-7.63 HCT 36.2 % Low 37.0-51.0 HGB 12.3 Gm/dl 12.0-16.0 MCH 35.3 pg High 26.0-32.0 MCHC 34.0 g/dL 31.0-36.0 MCV 104.0 Fl High 80.0-97.0 MPV 5.5 fL Low 6.0-10.0 PLT 487 K/ul High 140-440 RBC 3.5 M/ul Low 4.2-6.3 RDW 15.7 % High 11.5-14.5 WBC 4.8 K/ul 4.1-10.9 Lipid Panel 09/30/2013 Chol/HDL Ratio 4.9 ratio Cholesterol 241.0 mg/dL High 50.0-199.0 HDL 49.0 mg/dL 29.0-86.0 LDL, Calculated 151.0 mg/dL High 20.0-129.0 Triglycerides 205.0 mg/dL 30.0-249.0 vLDL 41.0 ng/dL Hepatic Function Panel LFT 09/30/2013 Albumin 4.1 g/dL 3.5-5.0 Alk. Phos. 84.0 U/L 30.0-126.0 Alt 13.0 U/L 9.0-52.0 Ast 21.0 U/L 14.0-36.0 Total Bilirubin 2.6 mg/dL High 0.2-1.3 Total Protein 6.4 g/dL 6.3-8.2 Laboratory test finding 09/30/2013 Band% 14 % High 0-8 Eosinophil% 1 % 0-5 Hematocrit 38.9 % 36.0-46.1 Hemoglobin 13.3 gm/dL 11.6-15.8 Lymph% 9 % Low 17-56 Mean Cell Volume 114.4 fl High 80.9-99.0 Mean Corpuscular HGB 39.1 pg High 25.9-32.7 Mean Corpuscular HGB Conc 34.2 g/dL 30.8-34.3 Mean Platelet Volume 9.8 fL 8.9-12.4 Monocyte% 6 % 0-10 Neutrophils% 70 % 33-73 Platelet Count 338 K/uL 155-360 Platelet Estimate Normal RBC Morphology Normal Red Blood Count 3.40 M/uL Low 3.90-5.40 Red Cell Distri Width %CV 16.9 % High 11.7-14.4 Total Cells Counted 100 #CELLS Vitamin D 36.6 ng/mL 30.0-100.0 White Blood Count 5.9 K/uL 3.1-10.7 Laboratory test finding 04/21/2013 CBC/Manual Differential See Note 76 Hepatic Function Panel LFT 04/21/2013 Albumin 4.2 g/dL 3.5-5.0 Alk. Phos. 74.0 U/L 30.0-126.0 Alt 20.0 U/L 9.0-52.0 Ast 26.0 U/L 14.0-36.0 Total Bilirubin 3.4 mg/dL High 0.2-1.3 Total Protein 6.3 g/dL 6.3-8.2 Laboratory test finding 04/21/2013 % Baso. 1.2 % 0.0-2.0 % Eos. 2.6 % 0.0-4.0 % Lymph 14 % Low 20-44 % Centre 7.9 % 2.0-10.0 % Alanna 74 % High 50-70 Absolute Baso. 0.0 K/ul 0.0-0.3 Absolute Eos. 0.1 K/ul 0.0-0.5 Absolute Lymph. 0.4 K/ul Low 0.8-4.8 Absolute Centre. 0.2 K/ul 0.1-1.0 Absolute Alanna. 2.25 K/ul 2.05-7.63 BUN 12.0 mg/dL 7.0-18.0 BUN/Creat Ratio 15.0 ratio 12.0-20.0 Calcium 9.9 mg/dL 8.7-10.5 Chloride 107.0 mmol/L 98.0-107.0 Co2 25.0 mmol/L 22.0-30.0 Creatinine-Serum 0.8 mg/dL 0.7-1.2 Glucose 97.0 mg/dL 75.0-110.0 HCT 37.4 % 37.0-51.0 HGB 12.3 Gm/dl 12.0-16.0 MCH 36.4 pg High 26.0-32.0 MCHC 32.9 g/dL 31.0-36.0 MCV 111.0 Fl High 80.0-97.0 MPV 7.2 fL 6.0-10.0 PLT 310 K/ul 140-440 Potasium 4.3 mmol/L 3.6-5.0 RBC 3.4 M/ul Low 4.2-6.3 RDW 15.4 % High 11.5-14.5 Sodium 142.0 mmil/L 137.0-145.0 WBC 3.0 K/ul Low 4.1-10.9 eGFR 77.2 Laboratory test finding 11/04/2012 Anisocytosis 1+ Band% 5 % 0-8 Basophil% 1 % 0-2 Eosinophil% 1 % 0-5 Hematocrit 36.5 % 36.0-46.1 Hemoglobin 12.3 gm/dL 11.6-15.8 Lymph% 17 % 17-56 Macrocytosis 1+ Mean Cell Volume 110.9 fl High 80.9-99.0 77 Mean Corpuscular HGB 37.4 pg High 25.9-32.7 Mean Corpuscular HGB Conc 33.7 g/dL 30.8-34.3 Mean Platelet Volume 10.5 fL 8.9-12.4 Monocyte% 7 % 0-10 Neutrophils% 69 % 33-73 Ovalocytes 1+ Platelet Count 304 K/uL 155-360 Platelet Estimate Normal Red Blood Count 3.29 M/uL Low 3.90-5.40 Red Cell Distri Width %CV 15.2 % High 11.7-14.4 Stomatocyte 1+ Total Cells Counted 100 #CELLS White Blood Count 5.1 K/uL 3.1-10.7 1 09/18 preOV 2 Per NCEP ATP III Guidelines: Results lower than 40 mg/dL are suggestive of increased risk for coronary artery disease. Results > or=to 60 mg/dL are considered a negative risk factor. 3 Per NCEP ATP III Guidelines: Normal Population <130 Patients with medical conditions: CHD/DM Optimal: <100 Borderline high: 130-159 High: 160-189 Very high: >189 4 Clinical Guidelines for recommended serum 25(OH)Vitamin D Deficient at less than 20 ng/mL Insufficient at 20 to <30 ng/mL Sufficient at 30-100 ng/mL Toxicity at greater than 100 ng/mL 5 Updated reference range on new analyzer 6 Updated reference range on new analyzer 7 Concerning GFR Guidelines: Normal function or mild renal disease, if clinically at risk: >/=60 mL/min Moderately decreased: 30-59 Severely decreased: 15-29 Renal failure: <15 Glomerular Filtration Rate (GFR) is estimated based on the MDRD equation, which assumes a steady state for creatinine as recommended by the National Kidney Disease Education Program in conjunction with the National Institutes of Health and the National Kidney Foundation. Clinical conditions in which it may be necessary to measure GFR by using clearance methods include extremes of age and body size, severe malnutrition or obesity, diseases of skeletal muscle, paraplegia or quadriplegia, vegetarian diet, rapidly changing kidney function, and calculation of the dose of potentially toxic drugs that are excreted by the kidneys. 8 Concerning GFR Guidelines for Americans: Normal function or mild renal disease, if clinically at risk: >/=60 mL/min Moderately decreased: 30-59 Severely decreased: 15-29 Renal failure: <15 9 Updated reference range on new analyzer 10 Microbiology results SOURCE Clean Catch Midstream FINAL RESULT No growth 11 03/17 preOV 12 Per NCEP ATP III Guidelines: Results lower than 40 mg/dL are suggestive of increased risk for coronary artery disease. Results > or=to 60 mg/dL are considered a negative risk factor. 13 Per NCEP ATP III Guidelines: Normal Population <130 Patients with medical conditions: CHD/DM Optimal: <100 Borderline high: 130-159 High: 160-189 Very high: >189 14 Updated reference range on new analyzer 15 Updated reference range on new analyzer 16 Concerning GFR Guidelines: Normal function or mild renal disease, if clinically at risk: >/=60 mL/min Moderately decreased: 30-59 Severely decreased: 15-29 Renal failure: <15 Glomerular Filtration Rate (GFR) is estimated based on the MDRD equation, which assumes a steady state for creatinine as recommended by the National Kidney Disease Education Program in conjunction with the National Institutes of Health and the National Kidney Foundation. Clinical conditions in which it may be necessary to measure GFR by using clearance methods include extremes of age and body size, severe malnutrition or obesity, diseases of skeletal muscle, paraplegia or quadriplegia, vegetarian diet, rapidly changing kidney function, and calculation of the dose of potentially toxic drugs that are excreted by the kidneys. 17 Concerning GFR Guidelines for Americans: Normal function or mild renal disease, if clinically at risk: >/=60 mL/min Moderately decreased: 30-59 Severely decreased: 15-29 Renal failure: <15 18 Updated reference range on new analyzer 19 [facility], [facility]. [address] [place] [address] CYTOLOGY REPORT Source of Specimen(s): A: LBP Urine, Voided Clinical Diagnosis and History: Microhematuria Gross Description LBP Urine, Voided: 30 cc yellow fluid. Final Diagnosis Specimen Adequacy Satisfactory Final Diagnosis VOIDED URINE: NEGATIVE FOR HIGH-GRADE UROTHELIAL CARCINOMA The specimen contains rare groups of urothelial cells, some of which show degenerative features. As applicable, positive and negative controls for all immunohistochemical and/or special stains were reviewed and considered appropriate. Reported: 02/11/2017 16:11 Electronically Signed Out By Michael Marcus MD [facility]er: Kathy MATHEW([facility]) [facility] ICD Code: R31.9 Unless otherwise specified, testing performed by [facility] [employer] [address] [place] [id number] 20 RLQ PAIN,VOMIT,NAUSEA 21 Note: Persistent reduction for 3 months or more in an eGFR <60 mL/min/1.73 m2 defines CKD. Patients with eGFR values >/=60 mL/min/1.73 m2 may also have CKD if evidence of persistent proteinuria is present. The original MDRD equation for estimated GFR is not valid for patients less than 18 years of age. Additional information may be found at [email or web address]. 22 11/15 preOV 23 Per NCEP ATP III Guidelines: Results lower than 40 mg/dL are suggestive of increased risk for coronary artery disease. Results > or=to 60 mg/dL are considered a negative risk factor. 24 Per NCEP ATP III Guidelines: Normal Population <130 Patients with medical conditions: CHD/DM Optimal: <100 Borderline high: 130-159 High: 160-189 Very high: >189 25 cc; Dr Oneill (FAXED 09/24 - AD) mid 2016 Fastin hours 26 CC: DR ONEILLFALL 2015 PRE-OV FALL 2015 PRE-OV FALL 2015 PRE-OV 27 Per NCEP ATP III Guidelines: Results lower than 40 mg/dL are suggestive of increased risk for coronary artery disease. Results > or=to 60 mg/dL are considered a negative risk factor. 28 Per NCEP ATP III Guidelines: Normal Population <130 Patients with medical conditions: CHD/DM Optimal: <100 Borderline high: 130-159 High: 160-189 Very high: >189 29 Concerning GFR Guidelines: Normal function or mild renal disease, if clinically at risk: >/=60 mL/min Moderately decreased: 30-59 Severely decreased: 15-29 Renal failure: <15 Glomerular Filtration Rate (GFR) is estimated based on the MDRD equation, which assumes a steady state for creatinine as recommended by the National Kidney Disease Education Program in conjunction with the National Institutes of Health and the National Kidney Foundation. Clinical conditions in which it may be necessary to measure GFR by using clearance methods include extremes of age and body size, severe malnutrition or obesity, diseases of skeletal muscle, paraplegia or quadriplegia, vegetarian diet, rapidly changing kidney function, and calculation of the dose of potentially toxic drugs that are excreted by the kidneys. 30 Concerning GFR Guidelines for Americans: Normal function or mild renal disease, if clinically at risk: >/=60 mL/min Moderately decreased: 30-59 Severely decreased: 15-29 Renal failure: <15 31 Will drop off week of 32 Microbiology results SOURCE URINE FINAL RESULT No growth 33 Unless otherwise specified, testing performed by [facility] [address] [place] [id number] 34 Unless otherwise specified, testing performed by [facility] [address] [place] [id number] 35 [place] [facility]. [address] [place] [id number] CYTOLOGY REPORT Source of Specimen(s): A: LBP Urine Clinical Diagnosis and History: R31.9 Gross Description LBP Urine: 5 cc yellow fluid. Final Diagnosis Specimen Adequacy Satisfactory Final Diagnosis NEGATIVE FOR HIGH-GRADE UROTHELIAL CARCINOMA. Erythrocytes, neutrophils, along and benign squamous and urothelial cells As applicable, positive and negative controls for all immunohistochemical and/or special stains were reviewed and considered appropriate. Reported: 06/26/2016 16:36 Electronically Signed Out By Ana Gray MD [facility]er: Kathy MATHEW(ASC) [facility] ICD Code: R31.9 Unless otherwise specified, testing performed by [employer] [employer] [address] [place] [id number] Unless otherwise specified, testing performed by Laboratory [employer] [address] [place] [id number] 37 LABORATORY [employer] [facility]. [address] [place] [id number] CYTOLOGY REPORT Source of Specimen(s): A: LBP Urine, Voided Clinical Diagnosis and History: Microhematuria Gross Description LBP Urine, Voided: 4 cc of clear yellow fluid Final Diagnosis Specimen Adequacy Satisfactory Final Diagnosis VOIDED URINE: NEGATIVE FOR HIGH-GRADE UROTHELIAL CARCINOMA The specimen contains a few urothelial cells. As applicable, positive and negative controls for all immunohistochemical and/or special stains were reviewed and considered appropriate. Reported: 06/19/2016 13:10 Electronically Signed Out By Michael Marcus MD [facility]er: Kirsten MATHEW([facility]) [facility] ICD Code: R31.9 Unless otherwise specified, testing performed by [facility] [place] [employer] [address] [address] 38 Microbiology results SOURCE URINE FINAL RESULT No growth 39 HIV COMBO TO BE PERFORMED AT [facility]. RESULTS TO FOLLOW 40 Unless otherwise specified, testing performed by [facility] [address] [address] 41 APHASIA SINCE FRIDAY AM 42 Note: Persistent reduction for 3 months or more in an eGFR <60 mL/min/1.73 m2 defines CKD. Patients with eGFR values >/=60 mL/min/1.73 m2 may also have CKD if evidence of persistent proteinuria is present. The original MDRD equation for estimated GFR is not valid for patients less than 18 years of age. Additional information may be found at www.kdoqi.org. 43 0.0 - 0.045 ng/mL: Normal 0.046 - 0.5 ng/mL: Suggestive 0.6 - 1.5 ng/mL: Consistent 44 Instrument flagged sample for slide review. Less than 10% Bands seen, no other immature WBC's seen. Platelet estimate=NORMAL 45 THERAPEUTIC INR RANGE: 2.0 - 3.0 DVT, Pulmonary embolus, prophylaxis against venous thrombosis or systemic embolization in high risk patients. 2.5 - 3.5 Mechanical heart valves 46 Is patient on anticoagulants? Coumadin 47 Charting This Result Sliding Scale 48 Fastin hours 49 2.3 Consistent with previous result(s). 50 Culture - fluid from lesion on foot 51 SPECIMEN DESCRIPTION ABSCESS SPECIAL REQUESTS NONE GRAM STAIN NO WHITE BLOOD CELLS NO BACTERIA CULTURE RESULTS NO GROWTH REPORT STATUS FINAL 04/21/2016 Unless otherwise specified, testing performed by [facility] [place] [facility] [employer] [address] [place] [address] 52 SPECIMEN DESCRIPTION ABSCESS SPECIAL REQUESTS NONE CULTURE RESULTS NO ANAEROBES ISOLATED REPORT STATUS FINAL 04/22/2016 53 CC: DR ONEILL - FAXED 04/17 54 5.5 Results verified by repeat analysis 55 Concerning GFR Guidelines for Americans: Normal function or mild renal disease, if clinically at risk: >/=60 mL/min Moderately decreased: 30-59 Severely decreased: 15-29 Renal failure: <15 56 Concerning GFR Guidelines: Normal function or mild renal disease, if clinically at risk: >/=60 mL/min Moderately decreased: 30-59 Severely decreased: 15-29 Renal failure: <15 Glomerular Filtration Rate (GFR) is estimated based on the MDRD equation, which assumes a steady state for creatinine as recommended by the National Kidney Disease Education Program in conjunction with the National Institutes of Health and the National Kidney Foundation. Clinical conditions in which it may be necessary to measure GFR by using clearance methods include extremes of age and body size, severe malnutrition or obesity, diseases of skeletal muscle, paraplegia or quadriplegia, vegetarian diet, rapidly changing kidney function, and calculation of the dose of potentially toxic drugs that are excreted by the kidneys. 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 - NO BLASTS ARE SEEN. - ADDITIONAL STUDIES MAY BE CONSIDERED CLINICALLY WARRANTED. [place]OSHUA/clf 1118 GROSS REC'D 1 PREPARED SMEAR FOR PATH REVIEW. [facility] REVIEW CODE CODE: I Signed Electronically signed ERIKA LEVINE MD 1141 60 CC: DR ONEILL (SENT 12/30 - AD) 61 Per NCEP ATP III Guidelines: Results lower than 40 mg/dL are suggestive of increased risk for coronary artery disease. Results > or=to 60 mg/dL are considered a negative risk factor. 62 Per NCEP ATP III Guidelines: Normal Population <130 Patients with medical conditions: CHD/DM Optimal: <100 Borderline high: 130-159 High: 160-189 Very high: >189 63 SPECIMEN DESCRIPTION THROAT SWAB CULTURE RESULTS NORMAL THROAT SHELLEY NO BETA HEMOLYTIC STREPTOCOCCI ISOLATED REPORT STATUS FINAL 10/30/2015 64 cc: Dr Oneill (FAXED - 09/29 AD) Late 09/16 65 Per NCEP ATP III Guidelines: Results lower than 40 mg/dL are suggestive of increased risk for coronary artery disease. Results > or=to 60 mg/dL are considered a negative risk factor. 66 Per NCEP ATP III Guidelines: Normal Population <130 Patients with medical conditions: CHD/DM Optimal: <100 Borderline high: 130-159 High: 160-189 Very high: >189 67 cc: Dr Oneill (SENT 06/23 - AD) 06/15 preOV 68 Per NCEP ATP III Guidelines: Results lower than 40 mg/dL are suggestive of increased risk for coronary artery disease. Results > or=to 60 mg/dL are considered a negative risk factor. 69 Per NCEP ATP III Guidelines: Normal Population <130 Patients with medical conditions: CHD/DM Optimal: <100 Borderline high: 130-159 High: 160-189 Very high: >189 70 Concerning GFR Guidelines: Normal function or mild renal disease, if clinically at risk: >/=60 mL/min Moderately decreased: 30-59 Severely decreased: 15-29 Renal failure: <15 Glomerular Filtration Rate (GFR) is estimated based on the MDRD equation, which assumes a steady state for creatinine as recommended by the National Kidney Disease Education Program in conjunction with the National Institutes of Health and the National Kidney Foundation. Clinical conditions in which it may be necessary to measure GFR by using clearance methods include extremes of age and body size, severe malnutrition or obesity, diseases of skeletal muscle, paraplegia or quadriplegia, vegetarian diet, rapidly changing kidney function, and calculation of the dose of potentially toxic drugs that are excreted by the kidneys. 71 Concerning GFR Guidelines for Americans: Normal function or mild renal disease, if clinically at risk: >/=60 mL/min Moderately decreased: 30-59 Severely decreased: 15-29 Renal failure: <15 72 LABORATORY [employer] [facility] [employer] [facility] [place] [address] GYNECOLOGIC CYTOLOGY REPORT Accession Number: [id number] Source of Specimen(s): A: Thin Prep Cervical / Endocervical Pap Smear - One Vial Clinical Diagnosis and History: Date of Last Menstrual Period: 10+ yrs ago Menstrual History: Post-menopausal Other Clinical Conditions: Last Pap Smear: 2011 normal REFLEX TO HPV ASSAY IF RESULTS OF THIS PAP ARE ASCUS Specimen Adequacy Satisfactory for evaluation Absence of endocervical/transformation zone component General Categorization Negative for intraepithelial lesion or malignancy Interpretation NEGATIVE FOR INTRAEPITHELIAL LESION OR MALIGNANCY Atrophy Scant cellularity Reported: 04/19/2015 Electronically Signed Out By Kathy MATHEW(ASCP) [facility] dss Unless otherwise specified, testing performed by [facility] [place] [address] [place] [address] 73 11/13 PREOV 74 Per NCEP ATP III Guidelines: Results lower than 40 mg/dL are suggestive of increased risk for coronary artery disease. Results > or=to 60 mg/dL are considered a negative risk factor. 75 Per NCEP ATP III Guidelines: Normal Population <130 Patients with medical conditions: CHD/DM Optimal: <100 Borderline high: 130-159 High: 160-189 Very high: >189 76 NO SPECIMEN, CANCEL ORDER PER ZEE Carmona [facility] 77 Result confirmed by repeat analysis. Procedures Date CPT Code Description Status Comment 10/28/2016 68395 Electrocardiogram Complete Completed 10/04/2016 Colonoscopy Completed 05/09: Dr Oneill + proctitis - Colonoscopy 05/09 10/18: DR ONEILL- DISTAL PROCTITIS, IH, BX + MILD RECTAL KEIRY - Path: Ugi And Colon BX Colonoscopy/Endoscopy 08/10/2016 80633 Measure Blood Oxygen Level Completed Single Determination 07/15/2016 70190 Bone Density Study (Dexa) Axial Completed Skeleton (Hips,Pelvis,Spine) 07/15/2016 Bone Mineral Density Test Completed 07/15/2016 Mammogram Completed Document: 07/15/16 - Digital Mammography Screening 05/27/2016 77899 Measure Blood Oxygen Level Completed Single Determination 04/19/2016 00371 Echography Abdominal Limited Completed 11/17/2015 03048 Radiologic Exam Hip Unilateral Completed With Pelvis 2-3 Views 06/21/2015 Mammogram Completed 02/03/2015 44730 Measure Blood Oxygen Level Completed Single Determination 10/31/2014 11435 X-Ray Chest Two Views Frontal Completed & Lateral Encounters Type Date Location Provider CPT E/M Dx Office Visit 10/21/2017 9:00a Gauri Broderick, [employer] SAL[employer]ERSON 70696 R07.9 Office Visit 10/15/2017 10:00[place] [address] Z23 K51.20 E78.9 M93.90 M15.9 G43.109 I63.412 Z00.00 Z11.59 Office Visit 08/07/2017 11:45a [place] [address] K14.0 D64.9 R53.83 Office Visit 06/13/2017 9:45[place] [address] R30.0 Office Visit 06/02/2017 11:15a [place] [address] M27.2 K51.20 Office Visit 05/28/2017 11:15a [place] [address] M27.2 Office Visit 05/24/2017 9:30a [place] [address] M27.2 Office Visit 04/25/2017 11:30[place] [address] R20.2 Office Visit 04/04/2017 10:45[place] [address] I63.412 E78.9 J47.9 D70.9 K51.20 J31.0 M15.9 M85.89 Office Visit 02/10/2017 11:15a [place] [address] M54.5 K51.20 R31.21 Office Visit 11/22/2016 1:00p [place] [address] I63.412 K51.20 E78.9 M15.9 J47.9 J31.0 D70.9 Z00.00 Z79.899 R20.2 Office Visit 11/18/2016 2:00p [place] [address] R20.2 Office Visit 11/08/2016 2:15p [place] [address] R07.9 Office Visit 10/28/2016 3:30p [place] [address] R07.9 Office Visit 10/15/2016 1:00p Gauri Broderick, [employer] 16726 R59.0 Office Visit 08/14/2016 10:45[place] [address] K51.20 D64.9 Office Visit 08/10/2016 9:00a Gauri Broderick, [employer] 13875 R53.1 Office Visit 08/09/2016 8:45[place] [address] J30.9 H10.89 Office Visit 07/24/2016 11:30a Joe Broderick MD G0402 K51.20 D64.9 M85.89 E78.9 I63.412 M15.9 Z00.00 K29.50 J31.0 J47.9 Office Visit 07/01/2016 10:00[place] [address] K62.5 K51.211 Office Visit 06/21/2016 8:45a [place] [address] R31.9 R10.9 K62.5 I63.412 Office Visit 06/14/2016 2:00p [facility] [place] [address] Z01.419 R31.9 I63.412 E80.4 Office Visit 05/27/2016 9:45a [facility] [place] [address] F80.1 Office Visit 04/19/2016 3:15[place] [address] A09 E80.4 K51.20 R21 Office Visit 04/16/2016 1:00p [facility] [place] [address] A09 Office Visit 04/11/2016 9:45[place] [address] B35.9 Office Visit 03/20/2016 1:15p [place] [address] R30.0 Office Visit 02/19/2016 4:30p [place] [address] H81.399 Office Visit 01/02/2016 3:45p [place] [address] E78.9 K51.20 K29.50 J47.9 J31.0 D70.9 M15.9 D64.9 M85.89 Office Visit 11/17/2015 9:30a [place] [address] M25.551 Office Visit 10/28/2015 10:30[place] [address] J02.9 Office Visit 09/20/2015 1:45[place] [address] J06.9 Office Visit 08/15/2015 11:00[place] [address] K29.50 Office Visit 06/27/2015 3:45p [place] [address] J01.90 E78.9 K51.20 K29.50 J47.9 J31.0 D70.9 M85.89 Office Visit 06/07/2015 10:30a [place] [address] H83.09 Office Visit 05/26/2015 2:15p [place] [address] J01.90 Office Visit 05/09/2015 3:30p [facility] [place] [address] 786.9 535.50 Office Visit 04/21/2015 9:45a [facility] Joe Herron MD 26808U 786.9 Office Visit 04/17/2015 10:30a [facility] [place] [address] V72.31 V76.12 Office Visit 02/03/2015 8:00a [facility] [place] [address] 461.9 Office Visit 12/20/2014 3:45p [facility] [place] [address] 461.9 494.0 272.8 733.90 592.0 556.2 535.50 715.00 V58.69 Office Visit 11/26/2014 11:00a [facility] Joe Herron [place] 60069D 789.03 Office Visit 11/07/2014 3:30p [facility] [place] [address] 494.0 592.0 Plan of Care Future Appointment(s):02/13/2018 9:05 am - Schedule, Laboratory at [facility]2017 11:30 am - Joe Herron MD at [facility]10/21/2017 - Gauri Herron NPR07.9 Chest pain, unspecifiedNew Orders:EKGComments:EKG is reassuring.Monitor symptoms and report any recurrent exertional CP.To ER for sustained CP or CP with associated shortness of breath, diaphoresis or any exertional CP.Follow up:Followup: as needed.
[2017-10-25 10:50] VITALS: BP 133/61
--- NOTE | 2017-10-25 11:17 | UC ---
Back Pain HPI - HPI Summary HPI Summary: patient complaining of dull right sided back pain that radiates to the front at times, has had Kidney stones in the past and states it feels the same way. - History of Current Complaint Chief Complaint: UCBackPain Stated Complaint: BACK PAIN Time Seen by Provider: 10/25/17 10:58 Hx Obtained From: Patient ?: No Onset/Duration: Sudden Onset, Lasting Days Timing: Intermittent Severity Initially: Moderate Severity Currently: Moderate Pain Intensity: 5 Back Pain: Is Discrete @ - right flank Character: Dull, Aching Aggravating Factor(s): Movement Associated Signs And Symptoms: Positive: Flank Pain - Allergies/Home Medications Allergies/Adverse Reactions: Allergies Allergy/AdvReac Type Severity Reaction Status Date / Time Sulfa (Sulfonamide Allergy Rash And Verified 10/25/17 10:38 Antibiotics) Itching PMH/Surg Hx/FS Hx/Imm Hx Previously Healthy: Yes - Surgical History Surgical History: Yes Surgery Procedure, Year, and Place: sinus surgery [employer] X2 - Family History Known Family History: Positive: None, Other - TIAs Negative: Cardiac Disease, Hypertension, Diabetes - Social History Alcohol Use: None Substance Use Type: None Smoking Status (MU): Never Smoked Tobacco - Immunization History Most Recent Influenza Vaccination: Not the Season Review of Systems Constitutional: Negative Skin: Negative Eyes: Negative ENT: Negative Respiratory: Negative Cardiovascular: Negative Gastrointestinal: Negative Genitourinary: Other - flank pain right Motor: Negative Neurovascular: Negative Musculoskeletal: Myalgia Neurological: Negative Psychological: Negative Is Patient Immunocompromised?: No All Other Systems Reviewed And Are Negative: Yes Physical Exam Triage Information Reviewed: Yes Appearance: Well-Appearing, Well-Nourished, Pain Distress Vital Signs: Initial Vital Signs Temp 98.4 F 10/25/17 10:42 Pulse 72 10/25/17 10:42 Resp 16 10/25/17 10:42 BP 133/61 10/25/17 10:42 Pulse Ox 98 10/25/17 10:42 Vital Signs Reviewed: Yes Eye Exam: Normal ENT Exam: Normal Dental Exam: Normal Neck exam: Normal Respiratory Exam: Normal Cardiovascular Exam: Normal Abdominal Exam: Normal Abdomen Description: Positive: Nontender, No Organomegaly, Soft, CVA Tenderness (R) - neg, CVA Tenderness (L) - neg Bowel Sounds: Positive: Present Musculoskeletal Exam: Normal Musculoskeletal: Positive: Strength Intact, ROM Intact, No Edema Neurological Exam: Normal Neurological: Positive: Alert, Muscle Tone Normal Psychological Exam: Normal Skin Exam: Normal Back Pain Course/Dx - Course Course Of Treatment: hx obtained, exam performed ,meds reviewed, Ua obtained and was negative for blood and leuks, recommmend continue with hydration, tylenol for pain and follow up with her urologist Dr Todd - Differential Dx/Diagnosis Differential Diagnosis/HQI/PQRI: Renal Colic, Strain, Sprain, Other - gall stones, kidney stone, pyelonephritisi Provider Diagnoses: flank pain, right Discharge - Discharge Plan Condition: Stable Disposition: HOME Patient Education Materials: Flank Pain (ED) Referrals: Joe Herron MD [Primary Care Provider] - Chandana Meadows MD [Medical Doctor] - Additional Instructions: 1. increase fluid intake and get plenty of rest. 2. Tylenol for pain 3 I recommend following up with your urologist if symptoms do not resolve on their own,
== END 2017-10-25 11:43 | disposition home or self-care (01) ==
LOC: UCCORT 09:18
DX: R10.9 Unspecified abdominal pain (principal); Z87.442 Personal history of urinary calculi
CPT/HCPCS: 81003; 99211; G0463

== ENCOUNTER 2018-11-23 13:03 | Emergency (ER) | payer MEDICARE, BC ==
--- OUTSIDE RECORDS SUMMARY | 2018-11-23 14:59 | XMS REPORT | Continuity of Care Document ---
:1950 External Reference #:[id number] Author Name Gauri Herron NP Address [address] [place] [address] Care Team Providers Name Role Phone Joe Herron MD Care Team Information Government Affairs Specialist Unavailable Payers Date Identification Numbers Payment Provider Subscriber Effective: 2016 Policy Number: [id number] Medicare R[employer]inder [employer] Name: Federal [address] PayID: [id number] [facility] [place] [address] Effective: 2011 Policy Number: [id number] [facility] Commercial [employer]inder [employer] Name: Individual [address] [address] PayID: [id number] GRETCHEN Ledesma [id number] Advance Directives Description No Information Available Problems Date Description Provider Status Onset: 06/27/2011 [...] septal Joe Herron MD Active defect Onset: 07/17/2018 Osteoporosis Joe Herron MD Active Onset: 05/07/2005 Osteochondropathy Joe Herron MD Inactive Inactive: 10/15/2017 Onset: 11/10/2013 Chronic sinusitis Inactive Inactive: 10/15/2017 Onset: 11/10/2013 Hypertrophy of nasal turbinates Inactive Inactive: 10/15/2017 Family History Date Family Member(s) Observation Comments Father due to eDEMA 94 () Mother due to CVA () First Son Alive And Well Siblings None Paternal Grandfather DM2 Paternal Grandmother Cancer, Breast Paternal Aunts Cancer, Colon 63 Paternal Aunts Cancer, Breast Social History Type Date Description Comments Sex Unknown Marital Status 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 ETOH Use Denies alcohol use Tobacco Use Start: Unknown Patient has never smoked Smoking Status Reviewed: 10/15/17 Patient has never smoked Allergies, Adverse Reactions, Alerts Date Description Reaction Status Severity Comments 05/07/2005 Tetracycline Active GI 12/20/2014 Sulfa Drugs Active Hives;SOB 05/07/2005 Amoxicillin Inactive GI Medications Medication Date Status Form Strength Qnty SIG Indications Ordering Provider Fluticasone 11/14/ Active Suspension 50mcg/Act 16uni 1 spray J31.0 Digiovann Propionate 2019 ts each a, nostril Gauri, daily [employer] Amoxicillin 11/14/ Active Tablets 875mg 28tab 1 by mouth J01.90 Digiovann 2019 s twice a a, day for 14 Gauri, days [employer] Hydrocortisone 07/17/ Active Enema 100mg/60M 2week Use qd K51.20 Digiovann 2018 L s until a, proctitis shahnaz Diaz MD resolve Calcium 600+D 10/15/ Active Tablets 600-400mg OTC 1 twice a M85.89 Digiovann 2018 -Unit day a, MD Joe Probiotic - 10/15/ Active OTC Digiovann Minoo Colon 2018 a, Health MD Joe Prednisone // Active Tablets 10mg 70tab take w/ K51.20 Digiovann 2017 s food once a, daily as ayo Diaz MD taper over 4 weeks if needed for colitis flare Atorvastatin 11/22/ Active Tablets 20mg 90tab take 1 I63.412 Digiovann Calcium 2017 s tablet by a, mouth once oscar Diaz MD E78.0 E78.9 Xarelto 06/24/2016 Active Tablets 20mg 30tabs take 1 I63.412 Digiovanna , tablet once MD Joe daily With Evening Meal Mesalamine 08/11/2015 Active Enema 4gm Use qd K51.20 Joanne Oneill during colitis flares Meclizine HCL 06/07/2015 Active Tablets 25mg 30tabs take 1 H83.09 Digiovanna, tablet by MD Joe mouth four times daily as needed for dizziness Ranitidine 12/10/2014 Active Tablets 150mg 360tabs take 2 K29.70 Digiovanna, HCL tablets by MD Joe mouth twice a day maximum daily dose of 4 K29.50 Loratadine 05/25/2014 Active Tablets 10mg 1 by mouth J31.0 Baljeetiovanna, every day Joe Hyatt MD as needed allergies Metronidazole 05/13/2014 Active Gel 0.75% 45gm apply to 695.3 Digkatinavanna, face as MD Joe needed Balsalazide 05/19/2008 Active Capsules 750mg 270ca 3 by mouth K51.20 Digiovanna, Disodium ps three times MD Joe a day Azathioprine Active Tablets 50mg 21tab 3 by mouth K51.20 trini Barber once every MD Sharri day Levofloxacin 10/31/2018 - Hx Tablets 250mg 7tabs 1 tablet by [id number] Luis Fernando, 11/07/2018 mouth once DO Darnell daily for 7 days Omeprazole 10/06/2018 - Hx Capsules 20mg 30cap 1 by mouth R10.13 Digiovanna, 10/20/2018 s twice MD Joe every day before meals for 2 weeks Levofloxacin 08/15/2018 - Hx Tablets 250mg 7tabs 1 tablet by [id number] Luis Fernando, 08/22/2018 mouth once Darnell, DO daily for 7 days Amoxicillin 07/11/2018 - Hx Tablets 875mg 20tab 1 pill by Luis Fernando, 07/21/2018 s mouth twice Darnell, DO a day x 10 days Clindamycin HCL 05/24/2017 - Hx Capsules 150mg 15cap 1 pill 3 M27.2 Digiovanna, 05/29/2017 s times a day MD Joe for 5 days Ferrous Sulfate 07/02/2016 - Hx Tablets 325(65 OTC 1 by mouth D64.9 Digiovanna, 07/24/2016 Fe) mg once daily MD Joe w/ food Prednisone 07/01/2016 - Hx Tablets 10mg 35tab Take w/ K51.211 Digiovanna, 07/16/2016 s food: 2 MD Joe pills twice a day for 5d, 1 pill twice a day for 5 d, 1 pill once a day for 5d Atorvastatin 07/01/2016 - Hx Tablets 40mg 30tab 1 by mouth I63.412 Digiovanna, Calcium 11/22/2016 s every day MD Joe E78.0 Pradaxa 05/30/2016 - Hx [...] LEFT B35.9 Gould, 06/12/2017 foot twice a Darnlel, DO day until resolved Oxybutynin 03/20/2016 - Hx Tablets ER 5mg 30tabs 1 po daily R30.0 Goudl , Chloride ER 06/12/2017 24HR Darnell, DO Levofloxacin 09/20/2015 - Hx Tablets 250mg 7tabs 1 po daily J06.9 Digiovanna, 09/27/2015 for 7 days Gauri, [employer] Levofloxacin 06/27/2015 - Hx Tablets 250mg 7tabs 1 pill by J06.9 Digiovanindira, 07/04/2015 mouth once MD Joe daily for 7 days Levofloxacin 05/26/2015 - Hx Tablets 250mg 7tabs 1 pill by J06.9 Baljeetiovanindira, 06/02/2015 mouth once MD Joe daily for 7 days Omeprazole 04/21/2015 - Hx Capsules 20mg 60caps 1 by mouth 786.9 Digiovanna, 05/09/2015 DR twice a day MD Joe before meals 535.50 Levofloxacin 02/03/2015 - Hx Tablets 250mg 7tabs 1 by mouth 461.9 Baljeetiovanna, 04/17/2015 daily for Gauri, [employer]ERK 7 days Prednisone 01/10/2015 - Hx Tablets 10mg 60tabs 1 by mouth Unknown 02/23/2015 every morning prn Levofloxacin 12/20/2014 - Hx Tablets 250mg 7tabs 1 pill by 461.9 Baljeetiovanindira, 12/27/2014 mouth once MD Joe daily for 7 days Xyzal 11/08/2014 - Hx Tablets 5mg 30tabs 1 by mouth Unknown 04/17/2015 every day Flonase 06/21/2014 - Hx Suspension 50mcg/A 16Units 1 spr each J31.0 Baljeetioyonisna, 11/14/2018 ct nostril Gauri, [employer]ERK twice a day Triamcinolone 06/27/2013 - Hx Paste 0.1% [...] - Hx Aerosol 108(90B 2 puffs J47.9 [place], 06/12/2017 ase) qid as MD Abner mcg/Act needed for sob Fluticasone - Hx Suspension 50mcg/A 1units 2 sprays Unknown Propionate 04/17/2015 ct each nostril every day Prednisone - Hx Tablets 10mg as Syam,Biswarup 11/22/2016 directed x 12 days Fergon - Hx Tablets 240(27F D64.9 Unknown 10/03/2016 e) mg Amoxicillin - Hx Capsules 500mg 1 by mouth Unknown 06/12/2017 three times a day Immunizations CPT Code Status Date Vaccine Reaction Lot # [id number] Given 09/15/2018 Flu Vaccine NOS 19492 Given 10/15/2017 Pneumococcal 23 Immunization [id number] Adult Or Immunosuppressed Patient 12389 Given 07/31/2016 Tdap (Adacel) Ages 7 And Above [id number] Only 68775 Given 07/20/2015 Prevnar 13 Pneumococal Conjugate [id number] Vaccine 32099 Given 10/21/2012 Pneumococcal 23 Immunization VIS DATE 06/06/09 Adult Or Immunosuppressed Patient 79276 Given 08/07/2009 Afluria Or Fluvirin Flu Vac Intramuscular 70735 Given 07/26/2008 Afluria Or Fluvirin Flu Vac Intramuscular 14771 Given 12/14/2004 Immunization Td 7 Yrs Or Older [id number] Refused 07/17/2018 Flu Vaccine NOS WILL WAIT TILL SHE IS OFF THE PREDNISONW 30350 Refused 10/21/2017 Influenza Vac, Quadrivalent, Split, 0.5mL Dosage, [place] Use [address]142 Refused 06/27/2015 Prevnar 13 Pneumococal DOESN'T WANT TODAY; MADE Conjugate Vaccine EARLY AM NV FOR 11-5 Vital Signs Date Vital Result Comment 11/14/2018 10:29am Body Temperature 97.1 F Weight 114.00 lb Heart Rate 66 /min BP Systolic 122 mmHg BP Diastolic 64 mmHg Respiratory Rate 16 /min O2 % BldC Oximetry 98 % 10/31/2018 10:01am Body Temperature 97.6 F Weight 113.00 lb Heart Rate 68 /min BP Systolic 122 mmHg BP Diastolic 80 mmHg Respiratory Rate 18 /min O2 % BldC Oximetry 98 % Ra 10/22/2018 11:15am Weight 113.00 lb Heart Rate 80 /min BP Systolic 120 mmHg BP Diastolic 80 mmHg Respiratory Rate 18 /min 10/06/2018 7:55am Weight 114.00 lb Heart Rate 74 /min BP Systolic 120 mmHg BP Diastolic 80 mmHg Respiratory Rate 18 /min 09/02/2018 10:00am Weight 115.00 lb Heart Rate 72 /min BP Systolic 120 mmHg BP Diastolic 76 mmHg Respiratory Rate 18 /min Height 61 inches 5'1" BMI (Body Mass Index) 21.7 kg/m2 08/15/2018 8:46am Body Temperature 98.5 F Weight 117.00 lb Heart Rate 78 /min BP Systolic 114 mmHg BP Diastolic 74 mmHg Respiratory Rate 18 /min Height 61 inches 5'1" BMI (Body Mass Index) 22.1 kg/m2 07/27/2018 3:15pm Weight 120.00 lb Heart Rate 72 /min BP Systolic 118 mmHg BP Diastolic 74 mmHg Respiratory Rate 18 /min Height 61 inches 5'1" BMI (Body Mass Index) 22.7 kg/m2 07/17/2018 11:13am Body Temperature 98.1 F Weight 118.00 lb Heart Rate 72 /min BP Systolic 120 mmHg BP Diastolic 80 mmHg Respiratory Rate 18 /min Height 61 inches 5'1" BMI (Body Mass Index) 22.3 kg/m2 07/11/2018 10:29am Body Temperature 96.8 F Weight 118.00 lb Heart Rate 70 /min BP Systolic 130 mmHg BP Diastolic 82 mmHg Respiratory Rate 16 /min Height 61 inches 5'1" O2 % BldC Oximetry 98 % ra BMI (Body Mass Index) 22.3 kg/m2 03/28/2018 10:28am Body Temperature 98.1 F Weight 114.00 lb Heart Rate 72 /min BP Systolic 124 mmHg BP Diastolic 76 mmHg Respiratory Rate 17 /min Height 61 inches 5'1" O2 % BldC Oximetry 99 % BMI (Body Mass Index) 21.5 kg/m2 02/20/2018 11:19am Weight 116.00 lb Heart Rate 60 /min BP Systolic 120 mmHg BP Diastolic 72 mmHg Respiratory Rate 18 /min Height 61 inches 5'1" BMI (Body Mass Index) 21.9 kg/m2 12/30/2017 10:58am Weight 114.00 lb Heart Rate 78 /min BP Systolic 120 mmHg BP Diastolic 68 mmHg Respiratory Rate 18 /min Height 61 inches 5'1" BMI (Body Mass Index) 21.5 kg/m2 11/03/2017 9:10am Weight 113.00 lb Heart Rate 74 /min BP Systolic 120 mmHg BP Diastolic 80 mmHg Respiratory Rate 18 /min Height 61 inches 5'1" BMI (Body Mass Index) 21.3 kg/m2 10/30/2017 10:43am Body Temperature 97.9 F Weight 114.00 lb Heart Rate 80 /min BP Systolic 132 mmHg BP Diastolic 76 mmHg Respiratory Rate 16 /min Height 61 inches 5'1" O2 % BldC Oximetry 98 % BMI (Body Mass Index) 21.5 kg/m2 10/21/2017 9:02am Weight 114.00 lb Heart Rate 70 /min BP Systolic 116 mmHg BP Diastolic 64 mmHg Respiratory Rate 14 /min Height 61 inches 5'1" BMI (Body Mass Index) 21.5 kg/m2 10/15/2017 9:44am Weight 114.00 lb Heart Rate 72 /min BP Systolic 120 mmHg BP Diastolic 80 mmHg Respiratory Rate 18 /min Height 61 inches 5'1" BMI (Body Mass Index) 21.5 kg/m2 08/07/2017 11:52am Weight 112.00 lb Heart Rate 70 /min BP Systolic 126 mmHg BP Diastolic 68 mmHg 06/13/2017 9:45am Body Temperature 98.2 F Weight 110.00 lb Heart Rate 76 /min BP Systolic 120 mmHg BP Diastolic 68 mmHg Respiratory Rate 16 /min Height 61 inches 5'1" BMI (Body Mass Index) 20.8 kg/m2 06/02/2017 11:13am Weight 110.00 lb Heart Rate 74 /min BP Systolic 120 mmHg BP Diastolic 80 mmHg Respiratory Rate 18 /min Height 61 inches 5'1" BMI (Body Mass Index) 20.8 kg/m2 05/28/2017 11:09am Body Temperature 97.6 F Weight 107.56 lb Heart Rate 82 /min BP Systolic 128 mmHg BP Diastolic 78 mmHg Respiratory Rate 18 /min Height 61 inches 5'1" BMI (Body Mass Index) 20.3 kg/m2 05/24/2017 9:27am Body Temperature 97.7 F Weight 110.00 lb Heart Rate 72 /min BP Systolic 120 mmHg BP Diastolic 70 mmHg Respiratory Rate 18 /min Height 61 inches 5'1" BMI (Body Mass Index) 20.8 kg/m2 04/25/2017 11:21am Weight 109.00 lb Heart Rate 74 /min BP Systolic 120 mmHg BP Diastolic 76 mmHg Respiratory Rate 18 /min Height 61 inches 5'1" BMI (Body Mass Index) 20.6 kg/m2 04/04/2017 10:34am Weight 111.00 lb Heart Rate 72 /min BP Systolic 112 mmHg BP Diastolic 70 mmHg Respiratory Rate 18 /min Height 61 inches 5'1" BMI (Body Mass Index) 21.0 kg/m2 02/10/2017 11:03am Weight 113.00 lb Heart Rate 74 /min BP Systolic 132 mmHg BP Diastolic 78 mmHg Respiratory Rate 18 /min Height 61 inches 5'1" BMI (Body Mass Index) 21.3 kg/m2 11/22/2016 12:59pm Weight 107.00 lb Heart Rate 72 /min BP Systolic 120 mmHg BP Diastolic 70 mmHg Respiratory Rate 18 /min Height 61 inches 5'1" BMI (Body Mass Index) 20.2 kg/m2 11/18/2016 1:51pm Weight 107.00 lb Heart Rate 74 /min BP Systolic 130 mmHg BP Diastolic 80 mmHg Respiratory Rate 18 /min Height 61.25 inches 5'1.25" BMI (Body Mass Index) 20.1 kg/m2 11/08/2016 2:19pm Weight 105.00 lb Heart Rate 74 /min BP Systolic 122 mmHg BP Diastolic 80 mmHg Respiratory Rate 18 /min Height 61.25 inches 5'1.25" BMI (Body Mass Index) 19.7 kg/m2 10/28/2016 3:04pm Weight 106.00 lb Heart Rate 72 /min BP Systolic 120 mmHg BP Diastolic 76 mmHg Respiratory Rate 18 /min Height 61.25 inches 5'1.25" BMI (Body Mass Index) 19.9 kg/m2 10/15/2016 1:04pm Body Temperature 98.5 F Weight 106.00 lb Heart Rate 74 /min BP Systolic 112 mmHg BP Diastolic 70 mmHg Respiratory Rate 17 /min Height 61.25 inches 5'1.25" BMI (Body Mass Index) 19.9 kg/m2 08/14/2016 10:41am Weight 102.00 lb Heart Rate 74 /min BP Systolic 120 mmHg BP Diastolic 80 mmHg Respiratory Rate 18 /min Height 61.25 inches 5'1.25" BMI (Body Mass Index) 19.1 kg/m2 08/10/2016 9:00am Body Temperature 97.9 F Weight 102.00 lb Heart Rate 86 /min BP Systolic 108 mmHg BP Diastolic 74 mmHg Respiratory Rate 18 /min Height 61.25 inches 5'1.25" O2 % BldC Oximetry 99 % Ra BMI (Body Mass Index) 19.1 kg/m2 08/09/2016 8:34am Body Temperature 98.2 F Weight 101.00 lb Heart Rate 74 /min BP Systolic 120 mmHg BP Diastolic 80 mmHg Respiratory Rate 18 /min Height 61.25 inches 5'1.25" BMI (Body Mass Index) 18.9 kg/m2 07/24/2016 11:27am Weight 101.00 lb Heart Rate 74 /min BP Systolic 110 mmHg BP Diastolic 80 mmHg Respiratory Rate 18 /min Height 61.25 inches 5'1.25" BMI (Body Mass Index) 18.9 kg/m2 07/01/2016 10:02am Weight 102.00 lb Heart Rate 68 /min BP Systolic 118 mmHg BP Diastolic 70 mmHg Respiratory Rate 16 /min Height 61.5 inches 5'1.50" 04/19/16 BMI (Body Mass Index) 19.0 kg/m2 06/21/2016 8:31am Weight 101.00 lb Heart Rate 72 /min BP Systolic 116 mmHg BP Diastolic 62 mmHg Respiratory Rate 18 /min Height 61.5 inches 5'1.50" BMI (Body Mass Index) 18.8 kg/m2 06/14/2016 2:00pm Weight 102.00 lb Heart Rate 64 /min BP Systolic 114 mmHg BP Diastolic 70 mmHg Respiratory Rate 18 /min Height 61.5 inches 5'1.50" BMI (Body Mass Index) 19.0 kg/m2 06/04/2016 3:26pm Weight 102.00 lb Heart Rate 72 /min BP Systolic 130 mmHg BP Diastolic 80 mmHg Respiratory Rate 18 /min Height 61.5 inches 5'1.50" BMI (Body Mass Index) 19.0 kg/m2 05/27/2016 9:56am Body Temperature 98.5 F Weight 104.00 lb Heart Rate 82 /min BP Systolic 110 mmHg BP Diastolic 70 mmHg Respiratory Rate 16 /min Height 61.5 inches 5'1.50" O2 % BldC Oximetry 96 % Ra BMI (Body Mass Index) 19.3 kg/m2 04/19/2016 3:09pm Weight 102.00 lb Heart Rate 76 /min BP Systolic 112 mmHg BP Diastolic 62 mmHg Respiratory Rate 18 /min Height 61.5 inches 5'1.50" BMI (Body Mass Index) 19.0 kg/m2 04/16/2016 1:02pm Body Temperature 97.8 F Weight 103.00 lb Heart Rate 82 /min BP Systolic 110 mmHg BP Diastolic 76 mmHg Respiratory Rate 18 /min Height 61.5 inches 5'1.50" BMI (Body Mass Index) 19.1 kg/m2 04/11/2016 9:49am Weight 110.00 lb Heart Rate 72 /min BP Systolic 118 mmHg BP Diastolic 70 mmHg Respiratory Rate 18 /min Height 61.5 inches 5'1.50" BMI (Body Mass Index) 20.4 kg/m2 03/20/2016 1:10pm Body Temperature 97.3 F Weight 112.00 lb Heart Rate 72 /min BP Systolic 112 mmHg BP Diastolic 68 mmHg Respiratory Rate 18 /min 02/19/2016 4:17pm Weight 109.00 lb Heart Rate 72 /min BP Systolic 124 mmHg BP Diastolic 72 mmHg Respiratory Rate 18 /min 01/02/2016 3:38pm Weight 112.00 lb Heart Rate 74 /min BP Systolic 122 mmHg BP Diastolic 78 mmHg Respiratory Rate 18 /min Height 60.75 inches 5'0.75" BMI (Body Mass Index) 21.3 kg/m2 11/17/2015 9:21am Weight 122.00 lb Heart Rate 74 /min BP Systolic 120 mmHg BP Diastolic 74 mmHg Respiratory Rate 18 /min Height 60.75 inches 5'0.75" BMI (Body Mass Index) 23.2 kg/m2 10/28/2015 10:27am Body Temperature 98.1 F Weight 112.56 lb Heart Rate 78 /min BP Systolic 118 mmHg BP Diastolic 62 mmHg Respiratory Rate 18 /min 09/20/2015 1:46pm Body Temperature 98.0 F Weight 118.00 lb Heart Rate 72 /min BP Systolic 132 mmHg BP Diastolic 78 mmHg Respiratory Rate 18 /min Height 60.75 inches 5'0.75" BMI (Body Mass Index) 22.5 kg/m2 08/15/2015 11:03am Body Temperature 98.5 F Weight 114.00 lb Heart Rate 72 /min BP Systolic 110 mmHg BP Diastolic 60 mmHg Respiratory Rate 18 /min Height 60.75 inches 5'0.75" BMI (Body Mass Index) 21.7 kg/m2 06/27/2015 3:47pm Weight 113.00 lb Heart Rate 74 /min BP Systolic 122 mmHg L/Reg BP Diastolic 76 mmHg L/Reg Respiratory Rate 16 /min Height 60.75 inches 5'0.75" BMI (Body Mass Index) 21.5 kg/m2 06/07/2015 10:18am Weight 114.00 lb Heart Rate 66 /min [...] BMI (Body Mass Index) 21.6 kg/m2 05/26/2015 2:11pm Body Temperature 97.7 F Weight 112.00 lb Heart Rate 76 /min BP Systolic 108 mmHg L/Reg BP Diastolic 68 mmHg L/Reg Respiratory Rate 21 /min Height 60.9 inches 5'0.90" BMI (Body Mass Index) 21.2 kg/m2 05/09/2015 3:23pm Weight 114.00 lb Heart Rate 72 /min BP Systolic 116 mmHg L/Reg BP Diastolic 68 mmHg L/Reg Respiratory Rate 17 /min Height 60.9 inches 5'0.90" BMI (Body Mass Index) 21.6 kg/m2 04/21/2015 9:41am Weight 112.00 lb Heart Rate 84 /min BP Systolic 114 mmHg L/Reg BP Diastolic 72 mmHg L/Reg Respiratory Rate 17 /min Height 60.9 inches 5'0.90" BMI (Body Mass Index) 21.2 kg/m2 04/17/2015 10:43am Weight 111.00 lb Heart Rate 72 /min BP Systolic 114 mmHg BP Diastolic 68 mmHg Respiratory Rate 18 /min Height 60.9 inches 5'0.90" BMI (Body Mass Index) 21.0 kg/m2 02/03/2015 8:04am Body Temperature 98.6 F Weight 110.00 lb Heart Rate 74 /min BP Systolic 106 mmHg BP Diastolic 58 mmHg Respiratory Rate 17 /min Height 60.9 inches 5'0.90" O2 % BldC Oximetry 93 % BMI (Body Mass Index) 20.9 kg/m2 12/20/2014 3:50pm Weight 112.00 lb Up 2# Heart Rate 76 /min BP Systolic 132 mmHg R/Reg BP Diastolic 74 mmHg R/Reg Respiratory Rate 16 /min Height 60.9 inches 5'0.90" BMI (Body Mass Index) 21.2 kg/m2 11/26/2014 10:57am Weight 110.38 lb Heart Rate 72 /min BP Systolic 116 mmHg BP Diastolic 62 mmHg Respiratory Rate 18 /min 11/07/2014 3:35pm Weight 112.00 lb Up 2# Heart Rate 74 /min BP Systolic 142 mmHg R/Reg BP Diastolic 72 mmHg R/Reg Respiratory Rate 17 /min Height 60.9 inches 5'0.90" BMI (Body Mass Index) 21.2 kg/m2 07/19/2014 10:52am Weight 110.00 lb Same Heart Rate 72 /min BP Systolic 136 mmHg L/Reg BP Diastolic 68 mmHg L/Reg Respiratory Rate 18 /min Height 60.9 inches 5'0.90" O2 % BldC Oximetry 98 % Ra At Rest 07/05/2014 10:41am Weight 110.50 lb Down 1# Heart Rate 72 /min BP Systolic 126 mmHg L/Reg BP Diastolic 76 mmHg L/Reg Respiratory Rate 16 /min Height 60.9 inches 5'0.90" 05/25/2014 3:39pm Weight 111.00 lb Down 3# Heart Rate 78 /min BP Systolic 108 mmHg L/Reg BP Diastolic 66 mmHg L/Reg Respiratory Rate 20 /min Height 60.9 inches 5'0.90" 03/02/2014 10:21am Weight 114.00 lb Heart Rate 72 /min BP Systolic 120 mmHg BP Diastolic 78 mmHg Respiratory Rate 18 /min 02/11/2014 11:16am Body Temperature 98.1 F Weight 113.00 lb Heart Rate 80 /min BP Systolic 104 mmHg BP Diastolic 50 mmHg Respiratory Rate 18 /min Height 60.9 inches 5'0.90" Results Test Date Facility Test Result H/L Range Note Laboratory test 08/10/2018 Vitamin D 25 55 ng/mL 30-100 1, 2 finding Hydroxy Basic (BMP) 08/10/2018 Sodium 140 mmol/L 135-146 3 Potassium 4.2 mmol/L 3.5-5.2 Chloride# 102 mmol/L 97-110 4 Carbon Dioxide 29 mmol/L 24-34 Glucose 80 mg/dL 70-105 BUN 11 mg/dL 6-26 Creatinine 0.6 mg/dL 0.5-1.4 Calcium 9.5 mg/dL 8.5-10.2 Non Kathleen Egfr >60 >60 5 Kathleen Egfr >60 >60 6 Anion Gap 9 mmol/L 5-15 7 Lipid 08/10/2018 Cholesterol 110 mg/dL 50-199 Triglycerides 105 mg/dL 30-200 HDL 35 mg/dL 35-85 8 Chol/ HDL Ratio 3.1 ratio Low 3.7-5.6 VLDL 21 mg/dL 2-29 LDL (Calc) 54 mg/dL 20-99 9 CBC with Auto Diff-fcmg 08/10/2018 WBC 5.5 K/uL 4.1-11.0 RBC 3.64 M/uL Low 4.00-5.40 Hemoglobin 14.2 gm/dL 12.0-16.0 Hematocrit 40.6 % 36.0-47.0 MCV 111.5 fL High 80.0-97.0 MCH 39.0 pg High 27.0-32.0 MCHC 35.0 g/dL 32.0-36.0 RDW 17.6 % High 11.5-14.5 PLT Count 263 K/ul 140-400 MPV 8.6 FL 7.1-10.7 Manual Differential 08/10/2018 Neutrophils 69 % 35-75 Band 5 % 0-11 Lymphocytes 7 % Low 16-52 Monocytes 15 % High 0-8 Eosinophils 3 % 0-5 Basophils 1 % 0-4 Abs Neutrophils# 3.8 K/ul 1.8-7.7 Abs Lymphocytes# 0.4 K/ul Low 1.2-4.8 Abs Monocytes# 0.8 K/ul 0.0-0.8 Abs Eosinophils# 0.2 K/ul 0.0-0.5 Abs Basophils# 0.1 K/ul 0.0-0.3 Abs BandCells# 0.3 K/ul 0.0-1.2 Anisocytosis 3 None Seen Hypochromia 1 None Seen Macrocytosis 2 None Seen Microcytosis 2 None Seen Platelet Estimate NORMAL Normal Poikilocytosis 1 None Seen Ovalocytes FEW Abnormal None Seen Hepatic Panel (LFT) 08/10/2018 Total Protein 5.7 g/dL Low 6.0- 8.0 Albumin 3.7 g/dL 3.6-4.9 Total Bilirubin 3.4 mg/dL High 0.1-1.3 10 Direct Bilirubin 0.4 mg/dL 0.0-0.4 Alkaline Phosphatase 64 U/L 24-140 Alt 55 U/L High 3-42 Ast 41 U/L 8-42 Laboratory test 03/28/2018 [facility] Urine Culture SPECIMEN 11 finding [phone] DESCRI> CBC With Auto Diff 02/13/2018 WBC 4.7 K/uL 4.1-11. 12 0 RBC 3.57 M/uL Low 4.00-5.40 Hemoglobin 13.6 gm/dL 12.0-16.0 Hematocrit 39.3 % 36.0-47.0 MCV 110.2 fL High 80.0-97.0 MCH 38.1 pg High 27.0-32.0 MCHC 34.6 g/dL 32.0-36.0 RDW 17.1 % High 11.5-14.5 PLT Count 275 K/ul 140-400 MPV 9.6 FL 7.1-10.7 Neutrophil 80.0 % High 35.0-75.0 Lymphocyte 11.6 % Low 16.0-52.0 Monocyte 6.3 % 2.0-10.0 Eosinophil 1.3 % 0.0-5.0 Basophil 0.8 % 0.0-4.0 Abs Neutrophils 3.7 K/uL 2.1-8.0 Abs Lymphocytes 0.5 K/uL Low 0.8-5.5 Abs Monocytes 0.3 K/uL 0.1-1.0 Abs Eosinophils 0.1 K/uL 0.0-0.5 Abs Basophils 0.0 K/uL 0.0-0.3 Lipid Treatment 02/13/2018 [facility] Cholesterol 93 mg/dL 50-199 Triglycerides 58 mg/dL 30-200 HDL 38 mg/dL 35-85 13 Chol/ HDL Ratio 2.4 ratio Low 3.7-5.6 VLDL 12 mg/dL 2-29 LDL (Calc) 43 mg/dL 20-99 14 Alt 26 U/L 3-42 Ast 31 U/L 8-42 Basic (BMP) 02/13/2018 Sodium 141 mmol/L 135-146 15 Potassium 4.1 mmol/L 3.5-5.2 Chloride# 103 mmol/L 97-110 16 Carbon Dioxide 28 mmol/L 24-34 Glucose 86 mg/dL 70-105 BUN 11 mg/dL 6-26 Creatinine 0.7 mg/dL 0.5-1.4 Calcium 9.7 mg/dL 8.5-10.2 Non Kathleen Egfr >60 >60 17 Kathleen Egfr >60 >60 18 Anion Gap 10 mmol/L 5-15 19 Laboratory 02/13/2018 Hepatitis C NON REACTIVE Non 20 test finding Virus S/CORatio(Niranjan Reactive Antibody Liver Function 12/08/2017 [facility] Total Protein 6.4 g/ dL N 6.4-8.2 21 Tests (315)- - Albumin 3.4 g/dL N 3.4-5.0 Globulin 3.0 g/dL N 1.9-4.3 Alb/Glob 1.1 ratio Bilirubin,Total 3.6 mg/dL High 0.2-1.0 Bilirubin,Direct 0.1 mg/dL N 0.0-0.2 Bilirubin,Indirect 3.5 mg/dL High 0.0-0.9 Sgot/Ast 64 U/L High 15-37 SGPT/Alt 104 U/L High 12-78 Alkaline Phosphatase 100 U/L N 45-117 CBC 12/08/2017 [facility] White Blood Count 6.8 K/uL N 3.1-10.7 (315)- - Red Blood Count 3.63 M/uL Low 3.90-5.40 Hemoglobin 13.9 gm/dL N 11.6-15.8 Hematocrit 40.7 % N 36.0-46.1 Mean Cell Volume 112.1 fl High 80.9-99.0 Mean Corpuscular HGB 38.3 pg High 25.9-32.7 Mean Corpuscular HGB Conc 34.2 g/dL N 30.8-34.3 Platelet Count 331 K/uL N 155-360 Red Cell Distri Width %CV 16.7 % High 11.7-14.4 Mean Platelet Volume 11.1 fL N 8.9-12.4 Path Review: 12/08/2017 [facility] Path Review: NI 22 (315)- - Laboratory test 12/08/2017 [facility] RBC Morphology 2+ finding (315)- - Only CBC With Auto 11/06/2017 [facility] WBC 3.3 K/uL Low 4.1-11. 23 Diff 0 RBC 3.30 M/uL Low 4.00-5.40 Hemoglobin 12.7 gm/dL 12.0-16.0 Hematocrit 36.6 % 36.0-47.0 MCV 110.8 fL High 80.0-97.0 MCH 38.3 pg High 27.0-32.0 MCHC 34.6 g/dL 32.0-36.0 RDW 17.6 % High 11.5-14.5 PLT Count 235 K/ul 140-400 MPV 9.3 FL 7.1-10.7 Neutrophil 74.1 % 35.0-75.0 Lymphocyte 15.4 % Low 16.0-52.0 Monocyte 6.1 % 2.0-10.0 Eosinophil 3.6 % 0.0-5.0 Basophil 0.8 % 0.0-4.0 Abs Neutrophils 2.4 K/uL 2.1-8.0 Abs Lymphocytes 0.5 K/uL Low 0.8-5.5 Abs Monocytes 0.2 K/uL 0.1-1.0 Abs Eosinophils 0.1 K/uL 0.0-0.5 Abs Basophils 0.0 K/uL 0.0-0.3 Hepatic Panel (LFT) 11/06/2017 [place] Total Protein 5.5 g/dL Low 6.0- 8.0 Albumin 3.9 g/dL 3.6-4.9 Total Bilirubin 5.3 mg/dL High 0.1-1.3 24 Direct Bilirubin 0.7 mg/dL High 0.0-0.4 Alkaline Phosphatase 94 U/L 24-140 Alt 67 U/L High 3-42 Ast 58 U/L High 8-42 Laboratory test finding 11/06/2017 Amylase 88 U/L 29-103 Lipase 32 U/L 11-82 CBC With Auto Diff 10/30/2017 WBC 8.7 K/uL 4.1-11.0 25 RBC 3.67 M/uL Low 4.00-5.40 Hemoglobin 13.6 gm/dL 12.0-16.0 Hematocrit 40.3 % 36.0-47.0 MCV 109.6 fL High 80.0-97.0 MCH 37.0 pg High 27.0-32.0 MCHC 33.8 g/dL 32.0-36.0 RDW 17.5 % High 11.5-14.5 PLT Count 340 K/ul 140-400 MPV 9.0 FL 7.1-10.7 Neutrophil 97.4 % High 35.0-75.0 Lymphocyte 1.6 % Low 16.0-52.0 Monocyte 0.3 % Low 2.0-10.0 Eosinophil 0.0 % 0.0-5.0 Basophil 0.7 % 0.0-4.0 Abs Neutrophils 8.5 K/uL High 2.1-8.0 Abs Lymphocytes 0.1 K/uL Low 0.8-5.5 Abs Monocytes 0.0 K/uL Low 0.1-1.0 Abs Eosinophils 0.0 K/uL 0.0-0.5 Abs Basophils 0.1 K/uL 0.0-0.3 Comprehensive Met Panel-[facility] 10/30/2017 Sodium 137 mmol/L 135- 146 26 Potassium 4.5 mmol/L 3.5-5.2 Chloride# 101 mmol/L 97-110 27 Carbon Dioxide 27 mmol/L 24-34 Glucose 114 mg/dL High 70-105 BUN 13 mg/dL 6-26 Creatinine 0.6 mg/dL 0.5-1.4 Calcium 9.9 mg/dL 8.5-10.2 Total Protein 6.0 g/dL 6.0-8.0 Albumin 4.5 g/dL 3.6-4.9 Globulin 1.5 g/dL Low 2.0-3.5 A/G Ratio 3.0 Ratio High 1.0-2.2 Total Bilirubin 4.8 mg/dL High 0.1-1.3 28 Alkaline Phosphatase 98 U/L 24-140 Alt 50 U/L High 3-42 Ast 56 U/L High 8-42 Kathleen Egfr >60 >60 29 Non Kathleen Egfr >60 >60 30 Anion Gap 9 mmol/L 5-15 31 Laboratory test finding 10/30/2017 Amylase 107 U/L High 29-103 Lipase 33 U/L 11-82 Hepatitis C Virus Antibody NON REACTIVE S/CORatio(Niranajn Non Reactive 32 Lipid Treatment 09/29/2017 Cholesterol 96 mg/dL 50-199 33 Triglycerides 59 mg/dL 30-200 HDL 48 mg/dL 35-85 34 Chol/ HDL Ratio 2.0 ratio Low 3.7-5.6 VLDL 12 mg/dL 2-29 LDL (Calc) 37 mg/dL 20-99 35 Alt 29 U/L 3-42 Ast 29 U/L 8-42 CBC With Auto Diff 09/29/2017 WBC 5.1 K/uL 4.1-11.0 RBC 3.45 M/uL Low 4.00-5.40 Hemoglobin 13.0 gm/dL 12.0-16.0 Hematocrit 37.9 % 36.0-47.0 MCV 109.9 fL High 80.0-97.0 MCH 37.8 pg High 27.0-32.0 MCHC 34.4 g/dL 32.0-36.0 RDW 17.3 % High 11.5-14.5 PLT Count 292 K/ul 140-400 MPV 9.2 FL 7.1-10.7 Neutrophil 69.4 % 35.0-75.0 Lymphocyte 18.6 % 16.0-52.0 Monocyte 8.1 % 2.0-10.0 Eosinophil 2.9 % 0.0-5.0 Basophil 1.0 % 0.0-4.0 Abs Neutrophils 3.6 K/uL 2.1-8.0 Abs Lymphocytes 1.0 K/uL 0.8-5.5 Abs Monocytes 0.4 K/uL 0.1-1.0 Abs Eosinophils 0.1 K/uL 0.0-0.5 Abs Basophils 0.0 K/uL 0.0-0.3 Laboratory test finding 09/29/2017 Vitamin D 25 52 ng/mL 30-100 36 Hydroxy Basic (BMP) 09/29/2017 Sodium 140 mmol/L 135-146 37 Potassium 3.9 mmol/L 3.5-5.2 Chloride# 100 mmol/L 97-110 38 Carbon Dioxide 31 mmol/L 24-34 Glucose 84 mg/dL 70-105 BUN 13 mg/dL 6-26 Creatinine 0.7 mg/dL 0.5-1.4 Calcium 9.7 mg/dL 8.5-10.2 Non Kathleen Egfr >60 >60 39 Kathleen Egfr >60 >60 40 Anion Gap 9 mmol/L 7-16 41 CBC With Auto Diff 08/07/2017 WBC 4.6 [...] Laboratory test finding 08/07/2017 Ferritin 77.7 ng/ml 11.0- 306.0 Iron, Total 124 g/dL 50-170 Vitamin B12 415 pg/mL 180-914 Laboratory test 06/13/2017 Urine Culture Microbiology res 42 finding <SEE NOTE> Affirm 06/13/2017 [facility] Trichomonas Negative Negative Vaginalis Gardnerella Vaginalis Negative Negative Mony Species Negative Negative Lipid Treatment 03/26/2017 [facility] Cholesterol 69 mg/dL 50-199 43 Triglycerides 38 mg/dL 30-200 HDL 37 mg/dL 35-85 44 Chol/ HDL Ratio 1.9 ratio Low 3.7-5.6 VLDL 8 mg/dL 2-29 LDL (Calc) 25 mg/dL 20-99 45 Alt 24 U/L 3-42 Ast 30 U/L 8-42 CBC With Auto Diff 03/26/2017 WBC 3.3 K/uL Low 4.1-11.0 RBC 3.46 M/uL Low 4.00-5.40 Hemoglobin 12.8 gm/dL 12.0-16.0 Hematocrit 38.4 % 36.0-47.0 MCV 111.0 fL High 80.0-97.0 MCH 37.0 pg High 27.0-32.0 MCHC 33.4 g/dL 32.0-36.0 RDW 15.8 % High 11.5-14.5 PLT Count 242 K/ul 140-400 Neutrophil 69.3 % 35.0-75.0 Lymphocyte 18.7 % 16.0-52.0 Monocyte 5.9 % 2.0-10.0 Eosinophil 5.0 % 0.0-5.0 Basophil 1.1 % 0.0-4.0 Abs Neutrophils 2.3 K/uL 2.1-8.0 Abs Lymphocytes 0.6 K/uL Low 0.8-5.5 Abs Monocytes 0.2 K/uL 0.1-1.0 Abs Eosinophils 0.2 K/uL 0.0-0.5 Abs Basophils 0.0 K/uL 0.0-0.3 Basic (BMP) 03/26/2017 Sodium 143 mmol/L 135-146 46 Potassium 3.9 mmol/L 3.5-5.2 Chloride# 105 mmol/L 97-110 47 Carbon Dioxide 31 mmol/L 24-34 Glucose 84 mg/dL 70-105 BUN 16 mg/dL 6-26 Creatinine 0.7 mg/dL 0.5-1.4 Calcium 9.7 mg/dL 8.5-10.2 Non Kathleen Egfr >60 >60 48 Kathleen Egfr >60 >60 49 Anion Gap 7 mmol/L 7-16 50 Laboratory test 02/10/2017 [facility] Cytology Fluid SEE NOTE 51 finding Specimen Basic Metabolic 12/30/2016 [facility] Glucose 122 mg/dL High 74-106 52 Panel (315)- - BUN 18 mg/dL N 7-18 Creatinine 0.7 mg/dL N 0.6-1.3 Glom Filtration Rate, Estimate >60 mL/min >60 If >60 mL/min >60 53 BUN/Creat 25.7 ratio Sodium 140 mmol/L N 136-145 Potassium 4.9 mmol/L N 3.5-5.1 Chloride 107 mmol/L N 98-107 Carbon Dioxide 28 mmol/L N 21-32 Anion Gap 5 mEq/L Low 8-16 Calcium 9.5 mg/dL N 8.5-10.1 Lipid Treatment 11/15/2016 Cholesterol 76 mg/dL 50-199 54 Triglycerides 55 mg/dL 30-200 HDL 39 mg/dL 35-85 55 Chol/ HDL Ratio 2.0 ratio Low 3.7-5.6 VLDL 11 mg/dL 2-29 LDL (Calc) 26 mg/dL 20-99 56 Alt 25 U/L 3-42 Ast 33 U/L 8-42 CBC With Auto Diff 11/15/2016 [place] WBC 4.3 K/uL 4.1-11.0 RBC 3.45 M/uL Low 4.00-5.40 Hemoglobin 13.3 gm/dL 12.0-16.0 Hematocrit 38.8 % 36.0-47.0 MCV 112.5 fL High 80.0-97.0 MCH 38.4 pg High 27.0-32.0 MCHC 34.1 g/dL 32.0-36.0 RDW 15.6 % High 11.5-14.5 PLT Count 291 K/ul 140-400 Neutrophil 75.5 % High 35.0-75.0 Lymphocyte 17.5 % 16.0-52.0 Monocyte 3.7 % 2.0-10.0 Eosinophil 1.4 % 0.0-5.0 Basophil 1.9 % 0.0-4.0 Abs Neutrophils 3.2 K/uL 2.1-8.0 Abs Lymphocytes 0.8 K/uL 0.8-5.5 Abs Monocytes 0.2 K/uL 0.1-1.0 Abs Eosinophils 0.1 K/uL 0.0-0.5 Abs Basophils 0.1 K/uL 0.0-0.3 CBC With Auto Diff 09/23/2016 WBC 3.7 K/uL Low 4.1-11.0 57 RBC 3.39 M/uL Low 4.00-5.40 Hemoglobin 13.4 gm/dL 12.0-16.0 Hematocrit 39.9 % 36.0-47.0 MCV 117.6 fL High 80.0-97.0 MCH 39.6 pg High 27.0-32.0 MCHC 33.6 g/dL 32.0-36.0 RDW 17.5 % High 11.5-14.5 PLT Count 443 K/ul High 140-400 Neutrophil 72.8 % 35.0-75.0 Lymphocyte 15.6 % Low 16.0-52.0 Monocyte 6.6 % 2.0-10.0 Eosinophil 2.6 % 0.0-5.0 Basophil 2.4 % 0.0-4.0 Abs Neutrophils 2.7 K/uL 2.1-8.0 Abs Lymphocytes 0.6 K/uL Low 0.8-5.5 Abs Monocytes 0.2 K/uL 0.1-1.0 Abs Eosinophils 0.1 K/uL 0.0-0.5 Abs Basophils 0.1 K/uL 0.0-0.3 Laboratory test finding 09/23/2016 Ferritin 63.0 ng/ml 11.0- 306.0 Iron, Total 94 g/dL 50-170 Vitamin B12 435 pg/mL 180-914 Folate 23.2 ng/ml 5.9-24.8 Basic (BMP) 07/02/2016 Sodium 138 mmol/L 134-142 58 Potassium 3.8 mmol/L 3.5-5.2 Chloride 104 mmol/L 97-109 Carbon Dioxide 28 mmol/L 24-34 Glucose 97 mg/dL 70-105 BUN 12 mg/dL 6-26 Creatinine 0.5 mg/dL 0.5-1.4 Calcium 9.7 mg/dL 8.5-10.2 Anion Gap 10 mmol/L 6-14 Non Kathleen Egfr >60 >60 59 Kathleen Egfr >60 >60 60 Laboratory test finding 07/02/2016 Vit D,25 Hydroxy 45 ng/mL 31- 100 Lipid Treatment 07/02/2016 [facility] Cholesterol 93 mg/dL 50-199 Triglycerides 55 mg/dL 30-200 HDL 33 mg/dL Low 35-85 61 Chol/ HDL Ratio 2.8 ratio Low 3.7-5.6 VLDL 11 mg/dL 2-29 LDL (Calc) 49 mg/dL 20-99 62 Alt 17 U/L 3-42 Ast 22 U/L 8-42 [facility] K/uL 4.1-11.0 RBC 2.46 M/uL Low 4.00-5.40 Hemoglobin 9.7 gm/dL Low 12.0-16.0 Hematocrit 28.2 % Low 36.0-47.0 MCV 114.7 fL High 80.0-97.0 MCH 39.6 pg High 27.0-32.0 MCHC 34.5 g/dL 32.0-36.0 RDW 16.9 % High 11.5-14.5 PLT Count 288 K/ul 140-400 Neutrophil 81.9 % High 35.0-75.0 Lymphocyte 13.4 % Low 16.0-52.0 Monocyte 4.1 % 2.0-10.0 Eosinophil 0.2 % 0.0-5.0 Basophil 0.4 % 0.0-4.0 Abs Neutrophils 5.4 K/uL 2.1-8.0 Abs Lymphocytes 0.9 K/uL 0.8-5.5 Abs Monocytes 0.3 K/uL 0.1-1.0 Abs Eosinophils 0.0 K/uL 0.0-0.5 Abs Basophils 0.0 K/uL 0.0-0.3 Laboratory test 06/25/2016 [place] Urine Culture Microbiology res <SEE 63, 64 finding NOTE> Rout Urine W/ Micro 06/25/2016 [facility] Color CHAS -RL Appearance CLOUDY Spec Grav Urine 1.022 (1.003-1.030) PH Urine 8.0 High (5.0-7.5) Leuk Esterase NEGATIVE (Neg) Nitrite Urine NEGATIVE (Neg) Protein Urine NEGATIVE (Neg) Glucose Urine NEGATIVE (Neg) Ketone Urine NEGATIVE (Neg) Urobilinogen 1.0 mg/dL (0-1.0) Blood/HGB Urine NEGATIVE (Neg) Urine WBC 0-2 [HPF] (0-5) Urine RBC NONE SEEN [HPF] (0-2) Bacteria 2+ [HPF] Mucus 3+ [HPF] 65 Laboratory test finding 06/25/2016 [facility] Bilirubin Urine NEGATIVE (Neg ) 66 Cytology [facility] SEE NOTE 67 Rout Urine W/ Micro -RL 06/18/2016 [facility] Color CHAS Appearance CLOUDY Spec Grav Urine 1.014 (1.003-1.030) PH Urine 6.0 (5.0-7.5) Leuk Esterase NEGATIVE (Neg) Nitrite Urine NEGATIVE (Neg) Protein Urine 1+ Abnormal (Neg) Glucose Urine NEGATIVE (Neg) Ketone Urine NEGATIVE (Neg) Urobilinogen 0.2 mg/dL (0-1.0) Bilirubin Urine NEGATIVE (Neg) Blood/HGB Urine 3+ Abnormal (Neg) Urine WBC 3-5 [HPF] (0-5) Urine RBC * 100-150 [HPF] (0-2) Epithelial Cells 1+ [HPF] Bacteria 1+ [HPF] Mucus 1+ [HPF] 68 Laboratory test 06/18/2016 [facility] Cytology [facility] SEE NOTE 69 finding Laboratory test 06/18/2016 [facility] Urine Culture Microbiology res <SEE 70 finding NOTE> Rout Urine W/ Micro 06/14/2016 [facility] Color CHAS 71 -RL Appearance CLEAR Spec Grav Urine 1.014 (1.003-1.030) PH Urine 6.0 (5.0-7.5) Leuk Esterase NEGATIVE (Neg) Nitrite Urine NEGATIVE (Neg) Protein Urine NEGATIVE (Neg) Glucose Urine NEGATIVE (Neg) Ketone Urine NEGATIVE (Neg) Urobilinogen 0.2 mg/dL (0-1.0) Bilirubin Urine NEGATIVE (Neg) Blood/HGB Urine 2+ Abnormal (Neg) Epithelial Cells NEGATIVE [HPF] (Neg) Hyaline Casts 3.6 [LPF] (0-5) Bacteria NEGATIVE [HPF] (Neg) Urine WBC 2.1 [HPF] (0-8) Urine RBC 10.9 [HPF] High (0-3) 72 Comprehensive Metabolic 05/27/2016 [facility] Glucose 101 mg/dL N 74-106 73 Panel (315)- - BUN 10 mg/dL N 7-18 Creatinine 0.7 mg/dL N 0.6-1.3 Glom Filtration Rate, Estimate >60 mL/min N >60 If >60 mL/min N >60 74 BUN/Creat 14.2 ratio N Sodium 138 mmol/L N 136-145 Potassium 4.2 mmol/L N 3.5-5.1 Chloride 104 mmol/L N 98-107 Carbon Dioxide 26 mmol/L N 21-32 Anion Gap 8 mEq/L N 8-16 Calcium 8.8 mg/dL N 8.5-10.1 Total Protein 7.2 g/dL N 6.4-8.2 Albumin 3.8 g/dL N 3.4-5.0 Globulin 3.4 g/dL N 1.9-4.3 Alb/Glob 1.1 ratio N Bilirubin,Total 4.5 mg/dL High 0.2-1.0 Sgot/Ast 25 U/L N 15-37 SGPT/Alt 23 U/L N 12-78 Alkaline Phosphatase 92 U/L N 45-117 Laboratory test finding 05/27/2016 [facility] CK 52 U/L N 26-192 (315)- - Troponin-I < 0.015 ng/mL N 75 CBS W/Automated Diff 05/27/2016 [facility] White Blood 5.0 K/uL N 3.1-10.7 (315)- - Count Red Blood Count 3.32 M/uL Low 3.90-5.40 Hemoglobin 13.6 gm/dL N 11.6-15.8 Hematocrit 38.1 % N 36.0-46.1 Mean Cell Volume 114.8 fl High 80.9-99.0 Mean Corpuscular HGB 41.0 pg High 25.9-32.7 Mean Corpuscular HGB Conc 35.7 g/dL High 30.8-34.3 Platelet Count 285 K/uL N 155-360 Red Cell Distri Width SD 66.4 fl High 3-47 Red Cell Distri Width %CV 16.1 % High 11.7-14.4 Mean Platelet Volume 10.1 fL N 8.9-12.4 Neut% 79.0 % High 40.4-72.8 Lymph % 11.2 % Low 17.0-46.1 [place] % 8.6 % N 4.3-13.2 Eo% 0.6 % N 0.0-6.6 Bas% 0.6 % N 0.0-1.1 Neut# 3.94 K/uL N 1.8-7.0 Lymph # 0.56 K/uL Low 1.8-7.0 [place] # 0.43 K/uL N 0.3-0.9 Eos # 0.03 K/uL N 0.0-0.5 Baso # 0.03 K/uL N 0.0-0.1 Slide Review 05/27/2016 [facility] Slide Review . N 76 (315)- - RBC Morphology Only 05/27/2016 [facility] Anisocytosis 0- 1+ N (315)- - Macrocytosis 2+ N Protime 05/27/2016 [facility] Protime 13.2 seconds N 12.0-14.4 (315)- - Inr 1.0 N 0.9-1.1 77 Laboratory test 05/27/2016 [facility] Act Partial 28.2 seconds N 23.4-35.0 78 finding (315)- - Thrombo Time Laboratory test 05/27/2016 [facility] Glucose,Bedsi 93 mg /dL N 70-110 79 finding (315)- - de Hepatic Panel 04/24/2016 [place] Total Protein 5.9 g/dL Low 6.0-8.0 80 (LFT) Albumin 3.7 g/dL 3.6-4.9 Total Bilirubin 2.3 Consistent w <SEE NOTE> mg/dL High 0.1-1.3 81 Direct Bilirubin 0.3 mg/dL 0.0-0.4 Alkaline Phosphatase 66 U/L 24-140 Alt 25 U/L 3-42 Ast 21 U/L 8-42 Laboratory test 04/19/2016 [facility] [place] Anaerobic SPECIMEN 82 finding [phone] Culture DESCRI> Laboratory test 04/19/2016 [facility] Wound Culture SEE NOTE 83, 84 finding CBC With Auto 04/16/2016 [facility] WBC 7.5 K/uL 4.1-1 85 Diff 1.0 RBC 3.44 M/uL Low 4.00-5.40 Hemoglobin 13.8 gm/dL 12.0-16.0 Hematocrit 40.0 % 36.0-47.0 MCV 116.2 fL High 80.0-97.0 MCH 40.3 pg High 27.0-32.0 MCHC 34.6 g/dL 32.0-36.0 RDW 17.7 % High 11.5-14.5 PLT Count 286 K/ul 140-400 Neutrophil 97.4 % High 35.0-75.0 Lymphocyte 0.7 % Low 16.0-52.0 Monocyte 1.4 % Low 2.0-10.0 Eosinophil 0.0 % 0.0-5.0 Basophil 0.5 % 0.0-4.0 Abs Neutrophils 7.3 K/uL 2.1-8.0 Abs Lymphocytes 0.0 K/uL Low 0.8-5.5 Abs Monocytes 0.1 K/uL 0.1-1.0 Abs Eosinophils 0.0 K/uL 0.0-0.5 Abs Basophils 0.0 K/uL 0.0-0.3 Comprehensive Metabolic (CMP) 04/16/2016 [facility] Sodium 134 mmol/L 134- 142 Potassium 4.6 mmol/L 3.5-5.2 Chloride 97 mmol/L 97-109 Carbon Dioxide 27 mmol/L 24-34 Glucose 124 mg/dL High 70-105 BUN 40 mg/dL High 6-26 Creatinine 0.9 mg/dL 0.5-1.4 Calcium 10.0 mg/dL 8.5-10.2 Total Protein 7.2 g/dL 6.0-8.0 Albumin 4.7 g/dL 3.6-4.9 Globulin 2.5 g/dL 2.0-3.5 A/G Ratio 1.9 Ratio 1.0-2.2 Total Bilirubin 5.5 Results veri <SEE NOTE> mg/dL High 0.1-1.3 86 Alkaline Phosphatase 92 U/L 24-140 Alt 33 U/L 3-42 Ast 38 U/L 8-42 Anion Gap 15 mmol/L High 6-14 Kathleen Egfr >60 >60 87 Non Kathleen Egfr >60 >60 88 Laboratory test 03/20/2016 [facility] Urine Culture Microbiology res 89 finding <SEE NOTE> Affirm 03/20/2016 [facility] Trichomonas Negative Negative Vaginalis Gardnerella Vaginalis Negative Negative Mony Species Negative Negative CBC With Auto Diff 02/02/2016 [facility] WBC 3.8 K/uL Low 4.1-11.0 90 RBC 2.83 M/uL Low 4.00-5.40 Hemoglobin 11.4 gm/dL Low 12.0-16.0 Hematocrit 32.6 % Low 36.0-47.0 MCV 115.0 fL High 80.0-97.0 MCH 40.1 pg High 27.0-32.0 MCHC 34.9 g/dL 32.0-36.0 RDW 17.3 % High 11.5-14.5 PLT Count 275 K/ul 140-400 Neutrophil 70.5 % 35.0-75.0 Lymphocyte 14.8 % Low 16.0-52.0 Monocyte 6.9 % 2.0-10.0 Eosinophil 6.8 % High 0.0-5.0 Basophil 1.0 % 0.0-4.0 Abs Neutrophils 2.7 K/uL 2.1-8.0 Abs Lymphocytes 0.6 K/uL Low 0.8-5.5 Abs Monocytes 0.3 K/uL 0.1-1.0 Abs Eosinophils 0.3 K/uL 0.0-0.5 Abs Basophils 0.0 K/uL 0.0-0.3 Laboratory test finding 02/02/2016 Ferritin 91.6 ng/ml 11.0- 306.0 Iron, Total 92 g/dL 50-170 Vitamin B12 326 pg/mL 180-914 Folate 20.8 ng/ml 5.9-24.8 Laboratory test 01/17/2016 [facility] Blood Smear Review See Note 91 finding (315)- - - Lipid Treatment 12/21/2015 Cholesterol 160 mg/dL 50-199 92 Triglycerides 68 mg/dL 30-200 HDL 37 mg/dL 35-85 93 Chol/ HDL Ratio 4.3 ratio 3.7-5.6 VLDL 14 mg/dL 2-29 LDL (Calc) 109 mg/dL High 20-99 94 Alt 36 U/L 3-42 Ast 32 U/L 8-42 CBC With Auto Diff 12/21/2015 W[facility] 3.8 K/uL Low 4.1-11.0 RBC 3.12 M/uL Low 4.00-5.40 Hemoglobin 11.7 gm/dL Low 12.0-16.0 Hematocrit 36.2 % 36.0-47.0 MCV 116.1 fL High 80.0-97.0 MCH 37.6 pg High 27.0-32.0 MCHC 32.4 g/dL 32.0-36.0 RDW 18.6 % High 11.5-14.5 PLT Count 285 K/ul 140-400 Manual Differential 12/21/2015 Neutrophils 70 % 35-75 Band 4 % 0-11 Lymphocytes 13 % Low 16-52 Monocytes 11 % High 0-8 Eosinophils 2 % 0-5 Basophils 0 % 0-4 Platelet Estimate Normal Normal RBC Morphology Normal Normal Macrocytosis 2+ Abnormal None Seen Abs Neutrophils# 2.7 K/ul 1.8-7.7 Abs Lymphocytes# 0.5 K/ul Low 1.2-4.8 Abs Monocytes# 0.4 K/ul 0.0-0.8 Abs Eosinophils# 0.1 K/ul 0.0-0.5 Abs Basophils# 0.0 K/ul 0.0-0.3 Abs BandCells# 0.2 K/ul 0.0-1.2 Laboratory test 10/28/2015 [facility] [place] Throat PO Culture SPECIMEN 95 finding [phone] DESCRI> Lipid Treatment 09/28/2015 [facility] Cholesterol 204 mg/dL High 50-19 96 9 Triglycerides 93 mg/dL 30-200 HDL 44 mg/dL 35-85 97 Chol/ HDL Ratio 4.6 ratio 3.7-5.6 VLDL 19 mg/dL 2-29 LDL (Calc) 141 mg/dL High 20-99 98 Alt 12 U/L 3-42 Ast 21 U/L 8-42 CBC With Auto Diff 09/28/2015 [facility] WBC 4.7 K/uL 4.1-11.0 RBC 3.42 M/uL Low 4.00-5.40 Hemoglobin 13.1 gm/dL 12.0-16.0 Hematocrit 40.0 % 36.0-47.0 MCV 116.7 fL High 80.0-97.0 MCH 38.2 pg High 27.0-32.0 MCHC 32.8 g/dL 32.0-36.0 RDW 16.1 % High 11.5-14.5 PLT Count 367 K/ul 140-400 Manual Differential 09/28/2015 [facility] Neutrophils 74 % 35-75 Lymphocytes 18 % 16-52 Monocytes 5 % 0-8 Eosinophils 3 % 0-5 Basophils 0 % 0-4 Platelet Estimate Normal Normal RBC Morphology Normal Normal Anisocytosis 2+ Abnormal None Seen Macrocytosis 2+ Abnormal None Seen Abs Neutrophils# 3.5 K/ul 1.8-7.7 Abs Lymphocytes# 0.8 K/ul Low 1.2-4.8 Abs Monocytes# 0.2 K/ul 0.0-0.8 Abs Eosinophils# 0.1 K/ul 0.0-0.5 Abs Basophils# 0.0 K/ul 0.0-0.3 Lipid 06/22/2015 Cholesterol 200 mg/dL High 50-199 99 Triglycerides 135 mg/dL 30-200 HDL 37 mg/dL 35-85 100 Chol/ HDL Ratio 5.4 ratio 3.7-5.6 VLDL 27 mg/dL 2-29 LDL (Calc) 136 mg/dL High 20-99 101 Basic (BMP) 06/22/2015 Sodium 139 mmol/L 134-142 Potassium 4.2 mmol/L 3.5-5.2 Chloride 103 mmol/L 97-109 Carbon Dioxide 29 mmol/L 24-34 Glucose 78 mg/dL 70-105 BUN 12 mg/dL 6-26 Creatinine 0.6 mg/dL 0.5-1.4 Calcium 10.0 mg/dL 8.5-10.2 Anion Gap 11 mmol/L 6-14 Non Kathleen Egfr >60 >60 102 Kathleen Egfr >60 >60 103 CBC With Auto Diff 06/22/2015 [facility] 3.4 K/uL Low 4.1-11.0 RBC 3.26 M/uL Low 4.00-5.40 Hemoglobin 12.5 gm/dL 12.0-16.0 Hematocrit 36.8 % 36.0-47.0 MCV 113.1 fL High 80.0-97.0 MCH 38.3 pg High 27.0-32.0 MCHC 33.9 g/dL 32.0-36.0 RDW 15.8 % High 11.5-14.5 PLT Count 272 K/ul 140-400 Neutrophil 69.1 % 35.0-75.0 Lymphocyte 17.9 % 16.0-52.0 Monocyte 6.4 % 2.0-10.0 Eosinophil 5.2 % High 0.0-5.0 Basophil 1.4 % 0.0-4.0 Abs Neutrophils 2.4 K/uL 2.1-8.0 Abs Lymphocytes 0.6 K/uL Low 0.8-5.5 Abmon 0.2 K/uL 0.1-1.0 Abs Eosinophils 0.2 K/uL 0.0-0.5 Abs Basophils 0.0 K/uL 0.0-0.3 Hepatic Panel (LFT) 06/22/2015 [facility] Total Protein 6.4 g/dL 6.0-8.0 Albumin 4.4 g/dL 3.6-4.9 Total Bilirubin 3.3 mg/dL High 0.1-1.3 Direct Bilirubin 0.3 mg/dL 0.0-0.4 Alkaline Phosphatase 90 U/L 24-140 Alt 12 U/L 3-42 Ast 21 U/L 8-42 Laboratory test 04/17/2015 [facility] Pap Smear Thin Prep SEE NOTE 104 finding Manual Differential 12/12/2014 [facility] Neutrophils 91 % High 35-75 105 Lymphocytes 6 % Low 16-52 Monocytes 3 % 0-8 Eosinophils 0 % 0-5 Basophils 0 % 0-4 Platelet Estimate Normal Normal RBC Morphology Normal Normal Anisocytosis 2+ Abnormal None Seen Macrocytosis 2+ Abnormal None Seen Abs Neutrophils# 8.4 K/ul High 1.8-7.7 Abs Lymphocytes# 0.6 K/ul Low 1.2-4.8 Abs Monocytes# 0.3 K/ul 0.0-0.8 Abs Eosinophils# 0.0 K/ul 0.0-0.5 Abs Basophils# 0.0 K/ul 0.0-0.3 Hepatic Panel (LFT) 12/12/2014 [facility] Total Protein 6.6 g/dL 6.0-8.0 Albumin 4.5 g/dL 3.6-4.9 Total Bilirubin 2.5 mg/dL High 0.1-1.3 Direct Bilirubin 0.3 mg/dL 0.0-0.4 Alkaline Phosphatase 86 U/L 24-140 Alt 11 U/L 3-42 Ast 15 U/L 8-42 Lipid 12/12/2014 [facility] Cholesterol 175 mg/dL 50-199 Triglycerides 94 mg/dL 30-200 HDL 54 mg/dL 35-85 106 Chol/ HDL Ratio 3.2 ratio Low 3.7-5.6 VLDL 19 mg/dL 2-29 LDL (Calc) 102 mg/dL High 20-99 107 Laboratory test finding 12/12/2014 [facility] Vit D,25 Hydroxy 62 ng/mL 31- 100 CBC With Auto Diff 12/12/2014 [facility] WBC 9.2 K/uL 4.1-11.0 RBC 3.20 M/uL Low 4.00-5.40 Hemoglobin 12.4 gm/dL 12.0-16.0 Hematocrit 37.2 % 36.0-47.0 MCV 116.3 fL High 80.0-97.0 MCH 38.8 pg High 27.0-32.0 MCHC 33.3 g/dL 32.0-36.0 RDW 18.4 % High 11.5-14.5 PLT Count 352 K/ul 140-400 Neutrophil 95.8 % High 35.0-75.0 Lymphocyte 2.1 % Low 16.0-52.0 Monocyte 1.1 % Low 2.0-10.0 Eosinophil 0.1 % 0.0-5.0 Basophil 0.9 % 0.0-4.0 Abs Neutrophils 8.9 K/uL High 2.1-8.0 Abs Lymphocytes 0.2 K/uL Low 0.8-5.5 Abmon 0.1 K/uL 0.1-1.0 Abs Eosinophils 0.0 K/uL 0.0-0.5 Abs Basophils 0.1 K/uL 0.0-0.3 Laboratory test finding 05/18/2014 N2N/CCD Import Alt 12.0 U/L 9.0-52.0 Anisocytosis 1+ Ast [...] Blood Count 4.6 K/uL 3.1-10.7 eGFR 89.8 Lipid Panel 05/18/2014 N2N/CCD Import Chol/HDL Ratio 4.3 ratio Cholesterol 173.0 mg/dL 50.0-199.0 HDL 40.0 mg/dL 29.0-86.0 LDL, Calculated 114.0 mg/dL 20.0-129.0 Triglycerides 95.0 mg/dL 30.0-249.0 vLDL 19.0 ng/dL Laboratory test finding 01/21/2014 N2N/CCD Import % Baso. 1.3 % 0.0-2.0 % Eos. 6.0 % High 0.0-4.0 % Lymph 22 % 20-44 % [place] 7.0 % 2.0-10.0 % Alanna 64 % 50-70 Absolute Baso. 0.1 K/ul 0.0-0.3 Absolute Eos. 0.3 K/ul 0.0-0.5 Absolute Lymph. 1.1 K/ul 0.8-4.8 Absolute [place]os. 0.3 K/ul 0.1-1.0 Absolute Alanna. 3.09 K/ul 2.05-7.63 HCT 36.2 % Low 37.0-51.0 HGB 12.3 Gm/dl 12.0-16.0 MCH 35.3 pg High 26.0-32.0 MCHC 34.0 g/dL 31.0-36.0 MCV 104.0 Fl High 80.0-97.0 MPV 5.5 fL Low 6.0-10.0 PLT 487 K/ul High 140-440 RBC 3.5 M/ul Low 4.2-6.3 RDW 15.7 % High 11.5-14.5 WBC 4.8 K/ul 4.1-10.9 Hepatic Function Panel LFT 01/21/2014 N2N/CCD Import Albumin 4.0 g/dL 3.5-5.0 Alk. Phos. 96.0 U/L 30.0-126.0 Alt 7.0 U/L Low 9.0-52.0 Ast 17.0 U/L 14.0-36.0 Total Bilirubin 2.5 mg/dL High 0.2-1.3 Total Protein 6.4 g/dL 6.3-8.2 Laboratory test finding 09/30/2013 N2N/CCD Import Band% 14 % High 0-8 Eosinophil% 1 [...] 30.0-100.0 White Blood Count 5.9 K/uL 3.1-10.7 Hepatic Function Panel LFT 09/30/2013 N2N/[facility] Import Albumin 4.1 g/dL 3.5-5.0 Alk. Phos. 84.0 U/L 30.0-126.0 Alt 13.0 U/L 9.0-52.0 Ast 21.0 U/L 14.0-36.0 Total Bilirubin 2.6 mg/dL High 0.2-1.3 Total Protein 6.4 g/dL 6.3-8.2 Lipid Panel 09/30/2013 N2N/CCD Import Chol/HDL Ratio 4.9 ratio Cholesterol 241.0 mg/dL High 50.0-199.0 HDL 49.0 mg/dL 29.0-86.0 LDL, Calculated 151.0 mg/dL High 20.0-129.0 Triglycerides 205.0 mg/dL 30.0-249.0 vLDL 41.0 ng/dL Laboratory test 04/21/2013 N2N/CCD Import CBC/Manual See Note 108 finding Differential Hepatic Function 04/21/2013 N2N/CCD Import Albumin 4.2 g/dL 3.5-5.0 Panel LFT Alk. Phos. 74.0 U/L 30.0-126.0 Alt 20.0 U/L 9.0-52.0 Ast 26.0 U/L 14.0-36.0 Total Bilirubin 3.4 mg/dL High 0.2-1.3 Total Protein 6.3 g/dL 6.3-8.2 Laboratory test finding 04/21/2013 N2N/CCD Import % Baso. 1.2 % 0.0-2.0 % Eos. 2.6 % 0.0-4.0 % Lymph 14 % Low 20-44 % P[place] 7.9 % 2.0-10.0 % Alanna 74 % High 50-70 Absolute Baso. 0.0 K/ul 0.0-0.3 Absolute Eos. 0.1 K/ul 0.0-0.5 Absolute Lymph. 0.4 K/ul Low 0.8-4.8 Absolute Pecos. 0.2 K/ul 0.1-1.0 Absolute Alanna. 2.25 K/ul [...] 4.1-10.9 eGFR 77.2 Laboratory test finding 11/04/2012 N2N/CCD Import Anisocytosis 1+ Band% 5 % 0-8 Basophil% 1 % 0-2 Eosinophil% 1 % 0-5 Hematocrit 36.5 % 36.0-46.1 Hemoglobin 12.3 gm/dL 11.6-15.8 Lymph% 17 % 17-56 Macrocytosis 1+ Mean Cell Volume 110.9 fl High 80.9-99.0 109 Mean Corpuscular HGB 37.4 pg High 25.9-32.7 [...] White Blood Count 5.1 K/uL 3.1-10.7 1 08/18 preOV Acanthocytes Few _Platelets Appear Normal 08/18 preOV 2 Clinical Guidelines for recommended serum 25(OH)Vitamin D Deficient at less than 20 ng/mL Insufficient at 20 to <30 ng/mL Sufficient at 30-100 ng/mL Toxicity at greater than 100 ng/mL 3 Updated reference range on new analyzer 4 Updated reference range on new analyzer 5 Concerning GFR Guidelines: Normal function or mild [...] drugs that are excreted by the kidneys. 6 Concerning GFR Guidelines for Americans: Normal function or mild renal disease, if clinically at risk: >/=60 mL/min Moderately decreased: 30-59 Severely decreased: 15-29 Renal failure: <15 7 Updated Reference Range 8 Per NCEP ATP III Guidelines: Results lower than 40 mg/dL are suggestive of increased risk for coronary artery disease. Results > or=to 60 mg/dL are considered a negative risk factor. 9 Per NCEP ATP III Guidelines: Normal Population <130 Patients with medical conditions: CHD/DM Optimal: <100 Borderline high: 130-159 High: 160-189 Very high: >189 10 Specimen Slightly Icteric 11 SPECIMEN DESCRIPTION URINE, COLLECTION METHOD NOT SPECIFIED CULTURE RESULTS NO GROWTH REPORT STATUS FINAL 03/29/2018 12 6.18 preOV 13 Per NCEP ATP III Guidelines: Results lower than 40 mg/dL are suggestive of increased risk for coronary artery disease. Results > or=to 60 mg/dL are considered a negative risk factor. 14 Per NCEP ATP III Guidelines: Normal Population <130 Patients with medical conditions: CHD/DM Optimal: <100 Borderline high: 130-159 High: 160-189 Very high: >189 15 Updated reference range on new analyzer 16 Updated reference range on new analyzer 17 Concerning GFR Guidelines: Normal function or mild [...] drugs that are excreted by the kidneys. 18 Concerning GFR Guidelines for Americans: Normal function or mild renal disease, if clinically at risk: >/=60 mL/min Moderately decreased: 30-59 Severely decreased: 15-29 Renal failure: <15 19 Updated Reference Range 20 S/CO Ratio >/=1.0 is REACTIVE. S/CO <5.0 is Low Reactive. S/CO >/= 5.0 is High Reactive. Effective Apr 25, 2017 all anti-HCV reactive samples are sent for quantitative PCR confirmation. 21 NO DX 22 Reviewed previous history, path review not indicated 23 SEE 11/06 TRIAGE 11/07: LABS, OV NOTE, CT SENT TO DR NINO COTTER 24 Critical results were verified by repeat analysis and called to Nurse Shama by Jenise Campos at 11/06/2017 12:36 PM. Specimen Slightly Icteric 25 Default Test Order (No Match) today letter 26 Updated reference range on new analyzer 27 Updated reference range on new analyzer 28 Specimen Moderately Icteric 29 Concerning GFR Guidelines for Americans: Normal function or mild renal disease, if clinically at risk: >/=60 mL/min Moderately decreased: 30-59 Severely decreased: 15-29 Renal failure: <15 30 Concerning GFR Guidelines: Normal function or mild [...] drugs that are excreted by the kidneys. 31 Updated Reference Range 32 S/CO Ratio >/=1.0 is REACTIVE. S/CO <5.0 is Low Reactive. S/CO >/= 5.0 is High Reactive. Effective Apr 25, 2017 all anti-HCV reactive samples are sent for quantitative PCR confirmation. 33 09/18 preOV 34 Per NCEP ATP III Guidelines: Results lower than 40 mg/dL are suggestive of increased risk for coronary artery disease. Results > or=to 60 mg/dL are considered a negative risk factor. 35 Per NCEP ATP III Guidelines: Normal Population <130 Patients with medical conditions: CHD/DM Optimal: <100 Borderline high: 130-159 High: 160-189 Very high: >189 36 Clinical Guidelines for recommended serum 25(OH)Vitamin D Deficient at less than 20 ng/mL Insufficient at 20 to <30 ng/mL Sufficient at 30-100 ng/mL Toxicity at greater than 100 ng/mL 37 Updated reference range on new analyzer 38 Updated reference range on new analyzer 39 Concerning GFR Guidelines: Normal function or mild [...] drugs that are excreted by the kidneys. 40 Concerning GFR Guidelines for Americans: Normal function or mild renal disease, if clinically at risk: >/=60 mL/min Moderately decreased: 30-59 Severely decreased: 15-29 Renal failure: <15 41 Updated reference range on new analyzer 42 Microbiology results SOURCE Clean Catch Midstream FINAL RESULT No growth 43 03/17 preOV 44 Per NCEP ATP III Guidelines: Results lower than 40 mg/dL are suggestive of increased risk for coronary artery disease. Results > or=to 60 mg/dL are considered a negative risk factor. 45 Per NCEP ATP III Guidelines: Normal Population <130 Patients with medical conditions: CHD/DM Optimal: <100 Borderline high: 130-159 High: 160-189 Very high: >189 46 Updated reference range on new analyzer 47 Updated reference range on new analyzer 48 Concerning GFR Guidelines: Normal function or mild [...] drugs that are excreted by the kidneys. 49 Concerning GFR Guidelines for Americans: Normal function or mild renal disease, if clinically at risk: >/=60 mL/min Moderately decreased: 30-59 Severely decreased: 15-29 Renal failure: <15 50 Updated reference range on new analyzer 51 [facility] [employer]. [facility] [place] [address] CYTOLOGY REPORT Source of Specimen(s): A: LBP [...] Out By Michael Marcus MD [facility] [employer] Operator: Kathy MATHEW([facility]) [facility] ICD Code: R31.9 Unless otherwise specified, testing performed by [facility] [address] [address] 52 RLQ PAIN,VOMIT,NAUSEA 53 Note: Persistent reduction for 3 months or more in an eGFR <60 mL/min/1.73 m2 defines CKD. Patients with eGFR values >/=60 mL/min/1.73 m2 may also have CKD if evidence of persistent proteinuria is present. The original MDRD equation for estimated GFR is not valid for patients less than 18 years of age. Additional information may be found at www.kdoqi.org. 54 11/15 preOV 55 Per NCEP ATP III Guidelines: Results lower than 40 mg/dL are suggestive of increased risk for coronary artery disease. Results > or=to 60 mg/dL are considered a negative risk factor. 56 Per NCEP ATP III Guidelines: Normal Population <130 Patients with medical conditions: CHD/DM Optimal: <100 Borderline high: 130-159 High: 160-189 Very high: >189 57 cc; Dr Oneill (FAXED 09/24 - AD) mid 2016 Fastin hours 58 CC: DR ONEILLFALL 2015 PRE-fall-fall 59 Concerning GFR Guidelines: Normal function or mild [...] drugs that are excreted by the kidneys. 60 Concerning GFR Guidelines for Americans: Normal function or mild renal disease, if clinically at risk: >/=60 mL/min Moderately decreased: 30-59 Severely decreased: 15-29 Renal failure: <15 61 Per NCEP ATP III Guidelines: Results lower than 40 mg/dL are suggestive of increased risk for coronary artery disease. Results > or=to 60 mg/dL are considered a negative risk factor. 62 Per NCEP ATP III Guidelines: Normal Population <130 Patients with medical conditions: CHD/DM Optimal: <100 Borderline high: 130-159 High: 160-189 Very high: >189 63 Will drop off week of 64 Microbiology results SOURCE URINE FINAL RESULT No growth 65 Unless otherwise specified, testing performed by [facility] [address] [place] [id number] 66 Unless otherwise specified, testing performed by [employer] [address] [phone] 67 [facility] [employer] [facility]. [address] [place] [id number] CYTOLOGY REPORT Source of Specimen(s): A: LBP [...] Out By Ana Gray MD [facility] [employer] Operator: Kathy Bedoya CT([facility]) [facility] ICD Code: R31.9 Unless otherwise specified, testing performed by [employer] [address] [place] [id number] 68 Unless otherwise specified, testing performed by [employer] [address] [place] [id number] 69 [place] [facility]. [address] [place] [id number] CYTOLOGY REPORT Source of Specimen(s): A: LBP [...] Out By Michael Marcus MD [facility] [employer] Operator: Kirsten MATHEW([facility]) [facility] [place] [facility] ICD Code: R31.9 Unless otherwise specified, testing performed by [employer] [address] [place] [phone] 70 Microbiology results SOURCE URINE FINAL RESULT No growth 71 HIV COMBO TO BE PERFORMED AT [facility]. RESULTS TO FOLLOW 72 Unless otherwise specified, testing performed by [employer] [address] [place] [phone] 73 APHASIA SINCE FRIDAY AM 74 Note: Persistent reduction for 3 months or more in an eGFR <60 mL/min/1.73 m2 defines CKD. Patients with eGFR values >/=60 mL/min/1.73 m2 may also have CKD if evidence of persistent proteinuria is present. The original MDRD equation for estimated GFR is not valid for patients less than 18 years of age. Additional information may be found at www.kdoqi.org. 75 0.0 - 0.045 ng/mL: Normal 0.046 - 0.5 ng/mL: Suggestive 0.6 - 1.5 ng/mL: Consistent 76 Instrument flagged sample for slide review. Less than 10% Bands seen, no other immature WBC's seen. Platelet estimate=NORMAL 77 THERAPEUTIC INR RANGE: 2.0 - 3.0 DVT, Pulmonary embolus, prophylaxis against venous thrombosis or systemic embolization in high risk patients. 2.5 - 3.5 Mechanical heart valves 78 Is patient on anticoagulants? Coumadin 79 Charting This Result Sliding Scale 80 Fastin hours 81 2.3 Consistent with previous result(s). 82 SPECIMEN DESCRIPTION ABSCESS SPECIAL REQUESTS NONE CULTURE RESULTS NO ANAEROBES ISOLATED REPORT STATUS FINAL 04/22/2016 83 Culture - fluid from lesion on foot 84 SPECIMEN DESCRIPTION ABSCESS SPECIAL REQUESTS NONE GRAM STAIN NO WHITE BLOOD CELLS NO BACTERIA CULTURE RESULTS NO GROWTH REPORT STATUS FINAL 04/21/2016 Unless otherwise specified, testing performed by [facility] [place] [facility] [employer] [address] [place] [address] 85 CC: DR ONEILL - FAXED 04/17 86 5.5 Results verified by repeat analysis 87 Concerning GFR Guidelines for Americans: Normal function or mild renal disease, if clinically at risk: >/=60 mL/min Moderately decreased: 30-59 Severely decreased: 15-29 Renal failure: <15 88 Concerning GFR Guidelines: Normal function or mild [...] drugs that are excreted by the kidneys. 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 - NO BLASTS ARE SEEN. - ADDITIONAL STUDIES MAY BE CONSIDERED CLINICALLY WARRANTED. DS/clf 1118 GROSS REC'D 1 PREPARED SMEAR FOR PATH REVIEW. [facility] REVIEW CODE CODE: I Signed Electronically signed ERIKA LEVINE MD [id number] CC: DR ONEILL (SENT 12/30 - AD) 93 Per NCEP ATP III Guidelines: Results lower than 40 mg/dL are suggestive of increased risk for coronary artery disease. Results > or=to 60 mg/dL are considered a negative risk factor. 94 Per NCEP ATP III Guidelines: Normal Population <130 Patients with medical conditions: CHD/DM Optimal: <100 Borderline high: 130-159 High: 160-189 Very high: >189 95 SPECIMEN DESCRIPTION THROAT SWAB CULTURE RESULTS NORMAL THROAT SHELLEY NO BETA HEMOLYTIC STREPTOCOCCI ISOLATED REPORT STATUS FINAL 10/30/2015 96 cc: Dr Oneill (FAXED - 09/29 AD) Late 09/16 97 Per NCEP ATP III Guidelines: Results lower than 40 mg/dL are suggestive of increased risk for coronary artery disease. Results > or=to 60 mg/dL are considered a negative risk factor. 98 Per NCEP ATP III Guidelines: Normal Population <130 Patients with medical conditions: CHD/DM Optimal: <100 Borderline high: 130-159 High: 160-189 Very high: >189 99 cc: Dr Oneill (SENT 06/23 - AD) 06/15 preOV 100 Per NCEP ATP III Guidelines: Results lower than 40 mg/dL are suggestive of increased risk for coronary artery disease. Results > or=to 60 mg/dL are considered a negative risk factor. 101 Per NCEP ATP III Guidelines: Normal Population <130 Patients with medical conditions: CHD/DM Optimal: <100 Borderline high: 130-159 High: 160-189 Very high: >189 102 Concerning GFR Guidelines: Normal function or mild [...] drugs that are excreted by the kidneys. 103 Concerning GFR Guidelines for Americans: Normal function or mild renal disease, if clinically at risk: >/=60 mL/min Moderately decreased: 30-59 Severely decreased: 15-29 Renal failure: <15 104 [employer] [address] [place] [address] GYNECOLOGIC CYTOLOGY REPORT Accession Number: [id number] Source of Specimen(s): A: Thin Prep Cervical [...] 04/19/2015 Electronically Signed Out By Kathy MATHEW(ASCP) [facility] dss Unless otherwise specified, testing performed by [facility] [address] [place] [address] 105 11/13 PREOV 106 Per NCEP ATP III Guidelines: Results lower than 40 mg/dL are suggestive of increased risk for coronary artery disease. Results > or=to 60 mg/dL are considered a negative risk factor. 107 Per NCEP ATP III Guidelines: Normal Population <130 Patients with medical conditions: CHD/DM Optimal: <100 Borderline high: 130-159 High: 160-189 Very high: >189 108 NO SPECIMEN, CANCEL ORDER PER ZEE Campos @ [facility] 109 Result confirmed by repeat analysis. Procedures Date Code Description Status 11/14/2018 99078 Measure Blood Oxygen Level Single Determination Completed 09/08/2018 59692485 Mammogram Completed 07/16/2018 [id number] Bone Mineral Density Test Completed 11/05/2017 34741 Electrocardiogram Complete Completed 10/21/2017 26562 Electrocardiogram Complete Completed 10/28/2016 51423 Electrocardiogram Complete Completed 10/04/2016 [id number] Colonoscopy Completed 08/10/2016 95325 Measure Blood Oxygen Level Single Determination Completed 07/15/2016 17966 Bone Density Study (Dexa) Axial Skeleton Completed (Hips,Pelvis,Spine) 07/15/2016 [id number] Bone Mineral Density Test Completed 05/27/2016 56085 Measure Blood Oxygen Level Single Determination Completed 04/19/2016 75913 Echography Abdominal Limited Completed 11/17/2015 63585 Radiologic Exam Hip Unilateral With Pelvis 2-3 Views Completed 06/21/2015 [id number] Mammogram Completed 02/03/2015 92302 Measure Blood Oxygen Level Single Determination Completed 10/31/2014 03212 X-Ray Chest Two Views Frontal & Lateral Completed Encounters Type Date Location Provider Dx Diagnosis Office Visit 11/14/2018 [facility] Germaine J01.90 Acute sinusitis, 10:30a Gauri, SHOP CLERK unspecified Office Visit 10/31/2018 [facility] Darnell Gould DO J01.90 Acute sinusitis, 10:00a unspecified Office Visit 10/22/2018 [facility] Germaine M54.5 Low back pain 11:30a MD Joe R10.13 Epigastric pain Office Visit 10/06/2018 8:00a [facility] Joe Herron, R10.13 Epigastric pain Office Visit 09/02/2018 10:00a [facility] Joe Herron, 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 Q21.1 Atrial septal defect M81.0 Age-related osteoporosis w/o current pathological fracture 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, 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 D70.9 Neutropenia, unspecified Z12.31 Encntr screen mammogram for malignant neoplasm of breast J47.9 Bronchiectasis, uncomplicated Z79.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 Office Visit 08/15/2018 8:45a [facility] Shanice Rojas PA J01.90 Acute sinusitis, unspecified N64.4 Mastodynia Office Visit 07/27/2018 3:30p [facility] Joe Herron K51.20 Ulcerative (chronic) MD proctitis without complications Office Visit 07/17/2018 11:30a [facility] Joe Herron K51.20 Ulcerative (chronic) MD proctitis without complications R68.84 Jaw pain M81.0 Age-related osteoporosis w/o current pathological fracture Office Visit 07/11/2018 10:30a [facility] Shanice Rojas PA H92.01 Otalgia, RIGHT ear Office Visit 03/28/2018 10:15a [facility] Darnell Gould DO R35.0 Frequency of micturition Office Visit 02/20/2018 11:30a [facility] Joe Herron, M15.9 PolyosteoarthritisMD unspecified 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, multiple sites 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, unspecified D70.9 Neutropenia, 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 J47.9 Bronchiectasis, uncomplicated M16.11 Unilateral primary osteoarthritis, RIGHT hip Z79.899 Other group home (current) drug therapy Office Visit 12/30/2017 11:00a [facility] Joe Herron MD M25.561 Pain in RIGHT knee Office Visit 11/03/2017 9:30a [facility] Joe Herron MD R10.11 RIGHT upper quadrant pain R94.5 Abnormal results of liver function studies Office Visit 10/30/2017 10:45a [facility] Emma Mcmahon MD R10.811 RIGHT upper quadrant abdominal tenderness Z11.59 Encounter for screening for other viral diseases Z87.442 Personal history of urinary calculi 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 Office Visit 10/21/2017 9:00a Gauri Broderick, R07.9 Chest pain, SHOP CLERK unspecified Office Visit 10/15/2017 10:00a Joe Broderick, Z23 Encounter for MD immunization 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, unspecified M93.90 Osteochondropathy, unspecified of unspecified site M15.9 Polyosteoarthritis, unspecified G43.109 Migraine with aura, not intractable, w/o status migrainosus 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 Z00.00 Encntr for general adult medical exam w/o abnormal findings Z11.59 Encounter for screening for other viral diseases Office Visit 08/07/2017 11:45a Joe Broderick MD K14.0 Glossitis D64.9 Anemia, unspecified R53.83 Other fatigue Office Visit 06/13/2017 9:45a Gauri Broderick, R30.0 Dysuria SHOP CLERK Office Visit 06/02/2017 11:15a Joe Broderick, M27.2 Inflammatory MD conditions of jaws 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 Office Visit 05/28/2017 11:15a Joe Broderick, M27.2 Inflammatory MD conditions of jaws Office Visit 05/24/2017 9:30a Joe Broderick, M27.2 Inflammatory MD conditions of jaws Office Visit 04/25/2017 11:30a Joe Broderick, R20.2 Paresthesia of skin MD Office Visit 04/04/2017 10:45a Joe Broderick, 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, unspecified J47.9 Bronchiectasis, uncomplicated D70.9 Neutropenia, 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 J31.0 Chronic rhinitis M15.9 Polyosteoarthritis, unspecified 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, multiple sites Office Visit 02/10/2017 11:15a Joe Broderick MD M54.5 Low back pain 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 R31.21 Asymptomatic microscopic hematuria Office Visit 11/22/2016 1:00p Joe Broderick MD 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, unspecified M15.9 Polyosteoarthritis, unspecified J47.9 Bronchiectasis, uncomplicated J31.0 Chronic rhinitis D70.9 Neutropenia, unspecified Z00.00 Encntr for general adult medical exam w/o abnormal findings Z79.899 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 R20.2 Paresthesia of skin Office Visit 11/18/2016 2:00p Joe Broderick, R20.2 Paresthesia of skin MD Office Visit 11/08/2016 2:15p Joe Broderick, R07.9 Chest pain, MD unspecified Office Visit 10/28/2016 3:30p Joe Broderick R07.9 Chest pain, MD unspecified Office Visit 10/15/2016 1:00p Gauri Broderick, R59.0 Localized enlarged SHOP CLERK lymph nodes Office Visit 08/14/2016 10:45a Joe Broderick 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 D64.9 Anemia, unspecified Office Visit 08/10/2016 9:00a Gauri Broderick R53.1 Weakness SHOP CLERK Office Visit 08/09/2016 8:45a Joe Broderick J30.9 Allergic rhinitis, unspecified H10.89 Other conjunctivitis Office Visit 07/24/2016 11:30a Joe Broderick K51.20 Ulcerative (chronic) MD proctitis without complications D64.9 Anemia, unspecified 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, multiple sites 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, 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 M15.9 Polyosteoarthritis, unspecified Z00.00 Encntr for general adult medical exam w/o abnormal findings K29.50 Unspecified chronic gastritis without bleeding J31.0 Chronic rhinitis J47.9 Bronchiectasis, uncomplicated Office Visit 07/01/2016 10:00a [facility] Joe Herron MD K62.5 Hemorrhage of anus and rectum K51.211 Ulcerative (chronic) proctitis with rectal bleeding Office Visit 06/21/2016 8:45a [facility] Joe Herron, R31.9 Hematuria, unspecified MD R10.9 Unspecified abdominal pain K62.5 Hemorrhage of anus and rectum 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 Office Visit 06/14/2016 2:00p [facility] Minerva Rae PA Z01.419 Encntr for chief dispatcher service exam (general) (routine) w/o abn findings R31.9 Hematuria, 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 E80.4 Gilbert syndrome Office Visit 05/27/2016 9:45a [facility] Germaine, F80.1 Expressive language Gauri, SHOP CLERK disorder Office Visit 04/19/2016 3:15p [facility] Joe Herron, A09 Infectious MD gastroenteritis and colitis, unspecified E80.4 Gilbert syndrome 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 R21 Rash and other nonspecific skin eruption Office Visit 04/16/2016 1:00p [facility] Minerva Rae, A09 Infectious PA gastroenteritis and colitis, unspecified Office Visit 04/11/2016 9:45a [facility] Minerva Rae, B35.9 Dermatophytosis, PA unspecified Office Visit 03/20/2016 1:15p [facility] Minerva aRe, R30.0 Dysuria PA Office Visit 02/19/2016 4:30p [facility] Germaine, H81.399 Other peripheral MD Joe vertigo, unspecified ear Office Visit 01/02/2016 3:45p [facility] Germaine E78.9 Disorder of lipoprotein MD Joe metabolism, 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 K29.50 Unspecified chronic gastritis without bleeding J47.9 Bronchiectasis, uncomplicated J31.0 Chronic rhinitis D70.9 Neutropenia, unspecified M15.9 Polyosteoarthritis, unspecified D64.9 Anemia, unspecified 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, multiple sites Office Visit 11/17/2015 9:30a Joe Broderick, M25.551 Pain in RIGHT hip MD Office Visit 10/28/2015 10:30a [facility] Minerva Rae PA J02.9 Acute pharyngitis, unspecified Office Visit 09/20/2015 1:45p [facility] Gauri Herron J06.9 Acute upper SHOP CLERK respiratory infection, unspecified Office Visit 08/15/2015 11:00a Minerva Lindo PA K29.50 Unspecified chronic gastritis without bleeding Office Visit 06/27/2015 3:45p Joe Broderick J01.90 Acute sinusitis, unspecified 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, 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 K29.50 Unspecified chronic gastritis without bleeding J47.9 Bronchiectasis, uncomplicated J31.0 Chronic rhinitis D70.9 Neutropenia, unspecified 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, multiple sites Office Visit 06/07/2015 10:30a Joe Broderick, H83.09 Labyrinthitis, unspecified ear Office Visit 05/26/2015 2:15p Joe Broderick J01.90 Acute sinusitis, unspecified Office Visit 05/09/2015 3:30p Joe Broderick, 786.9 Respiratory & Chest MD Symptoms Other 535.50 Gastritis & Gastroduodenitis Unspec W/O Hemorrhage Office Visit 04/21/2015 9:45a Joe Broderick 786.9 Respiratory & Chest MD Symptoms Other Office Visit 04/17/2015 10:30a Minerva Lindo PA 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 V76.12 Screening Mammogram Malig Paulie Other Office Visit 02/03/2015 8:00a Gauri Broderick 461.9 Sinusitis Acute SHOP CLERK Unspec Office Visit 12/20/2014 3:45p Joe Broderick MD 461.9 Sinusitis Acute Unspec 494.0 Bronchiectasis Without Acute Exacerbation 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.90 Bone & Cartilage Disorder Unspec 592.0 Calculus Of Kidney 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 535.50 Gastritis & Gastroduodenitis Unspec W/O Hemorrhage 715.00 Osteoarthrosis Generalized Site Unspec V58.69 Medications Technical Inspector (Current) Use Encounter Office Visit 11/26/2014 11:00a [facility] Joe Herron, 789.03 Pain Abdominal RIGHT MD Lower Quadrant Office Visit 11/07/2014 3:30p [facility] Joe Herron, 494.0 Bronchiectasis Without MD Acute Exacerbation 592.0 Calculus Of Kidney Plan of Treatment Future Appointment(s):02/23/2019 7:50 am - Schedule, Laboratory at [facility]2018 1:00 pm - Joe Herron MD at [facility]11/14/2018 - Gauri Herron , NPJ01.90 Acute sinusitis, unspecifiedNew Medication:Amoxicillin 875 mg - 1 by mouth twice a day for 14 daysComments:Plenty of rest and fluids.Recommend Mucinex 600mg every 12 hours until symptoms resolve.Tylenol 1000mg every 4-6 hours or ibuprofen 600-800mg every 6-8 hours with food for fever or BLEDSOE.Humidifier may behelpful. Restart Fluticasone nasal sprayRecommend use of probiotic or yogurt daily while on antibiotic.Follow up:PRN for no improvement in 3-4 days
--- OUTSIDE RECORDS SUMMARY | 2018-11-23 15:00 | XMS REPORT | Continuity of Care Document ---
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 Payers Date Identification Numbers Payment Provider Subscriber Effective: 2016 Policy Number: [id number] Medicare R[employer]inder [employer] Name: Federal [address] PayID: [id number] [place] [address] Effective: 2011 Policy Number: [id number] [facility] Commercial Rupinder [employer] Group Name: Individual [address] [address] PayID: [id number] GRETCHEN Ledesma [id number] Advance Directives Description No Information Available Problems [...] Form Strength Qnty SIG Indications Ordering Provider Levofloxacin 10/31/ Active Tablets 250mg 7tabs 1 tablet by J01.90 Luis Fernando , 2019 mouth once Darnell, daily for 7 DO days Hydrocortisone 07/17/ Active Enema 100mg/60ML 2weeks Use qd K51.20 Baljeetiovanmandeep 2018 until a, proctitis shahnaz Diaz MD resolve Calcium 600+D 10/15/ Active Tablets 600-400mg- OTC 1 twice a M85.89 Digiovann 2018 Unit day a, MD Joe Probiotic - 10/15/ Active OTC Digiovann Minoo Colon 2018 a, Health MD Joe Prednisone 04/04/ Active Tablets 10mg 70tabs take w/ K51.20 Digiovann 2017 food once a, daily as ayo Diaz MD taper over 4 weeks if needed for colitis flare Atorvastatin 11/22/ Active Tablets 20mg 90tabs take 1 I63.412 Digiovann Calcium 2017 tablet by a, mouth once Joe daily E78.0 E78.9 Xarelto 06/24/2016 Active Tablets 20mg 30tabs take 1 I63.412 Digiovanna , tablet once MD Joe daily With Evening Meal Mesalamine 08/11/2015 Active Enema 4gm Use qd K51.20 Syam,Biswarup during colitis flares Meclizine HCL 06/07/2015 Active Tablets 25mg 30tabs take 1 H83.09 Digiovanna, tablet by MD Joe mouth four times daily as needed for dizziness Ranitidine 12/10/2014 Active Tablets 150mg 360tabs take 2 K29.70 Digiovanna, HCL tablets by MD Joe mouth twice a day maximum daily dose of 4 K29.50 Flonase 06/21/2014 Active Suspension 50mcg/Act 16units 1 spr each J31.0 Unknown nostril twice a day Loratadine 05/25/2014 Active Tablets 10mg 1 by mouth J31.0 Digiovan every day na, as needed Joe allergies J Metronidazole 05/13/2014 Active Gel 0.75% 45gm apply to 695.3 Digiovan face as na, needed MD Joe Balsalazide 05/19/2008 Active Capsules 750mg 270caps 3 by mouth K51.20 Digiovan Disodium three na, times a chelsea Diaz MD Azathioprine Active Tablets 50mg 21tabs 3 by mouth K51.20 Sunil, once every Sharri, day Omeprazole 10/06/[address] 20mg 30caps 1 by mouth R10.13 Digiovan - twice na, 10/20/2018 every day iftikhar Diaz MD meals for 2 weeks Levofloxacin 08/15/2018 Hx Tablets 250mg 7tabs 1 tablet J01.90 Luis Fernando, - by mouth Darnell, 08/22/2018 once daily DO for 7 days Amoxicillin 07/11/2018 Hx Tablets 875mg 20tabs 1 pill by LuisF ernando, - mouth Darnell, 07/21/2018 twice a DO day x 10 days Clindamycin 05/24/2017 Hx Capsules 150mg 15caps 1 pill 3 M27.2 Digiovan HCL - times a na, 05/29/2017 day for 5 eve Diaz MD Ferrous 07/02/[address] 325(65Fe) OTC 1 by mouth D64.9 Digiovan Sulfate [...] Hx Cream 0.025% 15gm apply to LEFT Luis Fernando Acetonide 04/30/2016 foot twice a Darnell, DO day x 2 weeks routinely, then as needed Clotrimazole 04/11/2016 - Hx Cream 1% 15gm apply to LEFT B35.9 Gould, 06/12/2017 foot twice a DO Darnell day until resolved Oxybutynin 03/20/2016 - Hx Tablets ER 5mg 30tabs 1 po daily R30.0 Gould , Chloride ER 06/12/2017 24HR Darnell, Levofloxacin 09/20/2015 - Hx Tablets 250mg 7tabs 1 po daily J06.9 Digiovanna, 09/27/2015 for 7 days Gauri, [employer]PER[employer]OR Levofloxacin 06/27/2015 - Hx Tablets 250mg 7tabs 1 pill by Olena06.9 Baljeetiovanindira, 07/04/2015 mouth once MD Joe daily for 7 days Levofloxacin 05/26/2015 - Hx Tablets 250mg 7tabs 1 pill by J06.9 Baljeetiovanindira, 06/02/2015 mouth once MD Joe daily for 7 days Omeprazole 04/21/2015 - Hx Capsules 20mg 60caps 1 by mouth 786.9 Baljeetiovanna, 05/09/2015 DR twice a day MD Joe before meals 535.50 Levofloxacin 02/03/2015 - Hx Tablets 250mg 7tabs 1 by mouth 461.9 Digiovanna, 04/17/2015 daily for Gauri, [employer] SUPER[employer]OR 7 days Prednisone 01/10/2015 - Hx Tablets 10mg 60tabs 1 by mouth Unknown 02/23/2015 every morning prn Levofloxacin 12/20/2014 - Hx Tablets 250mg 7tabs 1 pill by 461.9 Baljeetiovanindira, 12/27/2014 mouth once MD Joe daily for 7 days Xyzal 11/08/2014 - Hx Tablets 5mg 30tabs 1 by mouth Unknown 04/17/2015 every day Triamcinolone 06/27/2013 - Hx Paste 0.1% 5gm apply to Baljeetye Acetonide 06/12/2017 affected MD Joe area up to four times daily as needed Ranitidine 150 06/08/2013 - Hx Tablets 150mg 360tabs 1 or 2 by 535.50 Digiovanna, Maximum 12/10/2014 mouth Joe Hyatt MD Strength twice a day Ibuprofen - Hx Tablets 200mg 2 PO tid Germaine, 06/12/2017 prn Joe Hyatt MD Mesalamine-Coby - Hx Kit 4gm 1 pr qhs Digye, nser 08/21/2014 Joe Hyatt MD Ventolin HFA - Hx Aerosol 108(90B 2 puffs J47.9 Whitharral, 06/12/2017 ase) qid as MD Abner mcg/Act needed for sob Fluticasone - Hx Suspension 50mcg/A 1units 2 sprays Unknown Propionate 04/17/2015 ct each nostril every day Prednisone - Hx Tablets 10mg as SymariahBiswarup 11/22/2016 directed x 12 days Fergon - Hx Tablets 240(27F D64.9 Unknown 10/03/2016 e) mg Amoxicillin - Hx Capsules 500mg 1 by mouth Unknown 06/12/2017 three times a day Immunizations CPT Code Status Date Vaccine Reaction Lot # [id number] Given 09/15/2018 Flu Vaccine NOS 74168 Given 10/15/2017 Pneumococcal 23 Immunization [id number] Adult Or Immunosuppressed Patient 68283 Given 07/31/2016 Tdap (Adacel) Ages 7 And Above [id number] Only 86077 Given 07/20/2015 Prevnar 13 Pneumococal Conjugate [id number] Vaccine 86092 Given 10/21/2012 Pneumococcal 23 Immunization VIS DATE 06/06/09 Adult Or Immunosuppressed Patient 74792 Given 08/07/2009 Afluria Or Fluvirin Flu Vac Intramuscular 77768 Given 07/26/2008 Afluria Or Fluvirin Flu Vac Intramuscular 32397 Given 12/14/2004 Immunization Td 7 Yrs Or Older [id number] Refused 07/17/2018 Flu Vaccine NOS WILL WAIT TILL SHE IS OFF THE PREDNISONW [id number] Refused 10/21/2017 Influenza Vac, Quadrivalent, Split, 0.5mL Dosage, Im Use [id number] Refused 06/27/2015 Prevnar 13 Pneumococal DOESN'T WANT TODAY; MADE Conjugate Vaccine EARLY AM NV FOR 11-5 Vital Signs Date Vital Result Comment 10/31/2018 10:01am Body Temperature 97.6 F Weight [...] Result H/L Range Note Laboratory test 08/10/2018 [facility] Vitamin D 25 55 ng/mL 30-100 1, 2 finding Hydroxy Basic (BMP) 08/10/2018 [facility] Sodium 140 mmol/L 135-146 3 Potassium 4.2 [...] 41 U/L 8-42 Laboratory test 03/28/2018 [facility] Urine Culture SPECIMEN 11 finding [phone] DESCRI> CBC With Auto Diff 02/13/2018 WBC [...] Basophils 0.0 K/uL 0.0-0.3 Lipid Treatment 02/13/2018 Cholesterol 93 mg/dL 50-199 Triglycerides 58 mg/dL [...] Virus S/CORatio(Niranjan Reactive Antibody Liver Function 12/08/2017 [facility] Total Protein 6.4 g/ dL N 6.4-8.2 21 Tests (315)- - Albumin 3.4 g/dL N 3.4-5.0 Globulin 3.0 g/dL N 1.9-4.3 Alb/Glob 1.1 ratio Bilirubin,Total 3.6 mg/dL High 0.2-1.0 Bilirubin,Direct 0.1 mg/dL N 0.0-0.2 Bilirubin,Indirect 3.5 mg/dL High 0.0-0.9 Sgot/Ast 64 U/L High 15-37 SGPT/Alt 104 U/L High 12-78 Alkaline Phosphatase 100 U/L N 45-117 CBC 12/08/2017 [facility] White Blood Count 6.8 K/uL N 3.1-10.7 [...] 11.1 fL N 8.9-12.4 Path Review: 12/08/2017 [facility] Path Review: NI 22 (315)- - Laboratory test 12/08/2017 [facility] RBC Morphology 2+ finding (315)- [...] U/L High 8-42 Laboratory test finding 11/06/2017 [facility] Amylase 88 U/L 29-103 Lipase 32 U/L 11-82 CBC With Auto Diff 10/30/2017 [facility] WBC 8.7 K/uL 4.1-11.0 25 RBC 3.67 [...] 0.1 K/uL 0.0-0.3 Comprehensive Met Panel-FCMG 10/30/2017 [facility] Sodium 137 mmol/L 135- 146 26 Potassium [...] mmol/L 5-15 31 Laboratory test finding 10/30/2017 [facility] Amylase 107 U/L High 29-103 Lipase 33 U/L 11-82 Hepatitis C Virus Antibody NON REACTIVE S/CORatio(Niranjan Non Reactive 32 Lipid Treatment 09/29/2017 [facility] Cholesterol 96 mg/dL 50-199 33 Triglycerides 59 [...] ng/mL 30-100 36 Hydroxy Basic (BMP) 09/29/2017 [facility] Sodium 140 mmol/L 135-146 37 Potassium 3.9 mmol/L 3.5-5.2 Chloride# 100 mmol/L 97-110 38 Carbon Dioxide 31 mmol/L 24-34 Glucose 84 mg/dL 70-105 BUN 13 mg/dL 6-26 Creatinine 0.7 mg/dL 0.5-1.4 Calcium 9.7 mg/dL 8.5-10.2 Non Kathleen Egfr >60 >60 39 Kathleen Egfr >60 >60 40 Anion Gap 9 mmol/L 7-16 41 CBC With Auto Diff 08/07/2017 [facility] WBC 4.6 K/uL 4.1-11.0 RBC 3.60 M/uL [...] 0.0 K/uL 0.0-0.3 Laboratory test finding 08/07/2017 [facility] Ferritin 77.7 ng/ml 11.0- 306.0 Iron, Total 124 g/dL 50-170 Vitamin B12 415 pg/mL 180-914 Laboratory test 06/13/2017 [facility] Urine Culture Microbiology res 42 finding <SEE NOTE> Affirm 06/13/2017 [facility] Trichomonas Negative Negative Vaginalis Gardnerella Vaginalis Negative Negative Mony Species Negative Negative Lipid Treatment 03/26/2017 [facility] Cholesterol 69 mg/dL 50-199 43 Triglycerides 38 mg/dL 30-200 HDL 37 mg/dL 35-85 44 Chol/ HDL Ratio 1.9 ratio Low 3.7-5.6 VLDL 8 mg/dL 2-29 LDL (Calc) 25 mg/dL 20-99 45 Alt 24 U/L 3-42 Ast 30 U/L 8-42 CBC With Auto Diff 03/26/2017 [facility] WBC 3.3 K/uL Low 4.1-11.0 RBC 3.46 [...] Basophils 0.0 K/uL 0.0-0.3 Basic (BMP) 03/26/2017 [facility] Sodium 143 mmol/L 135-146 46 Potassium 3.9 mmol/L 3.5-5.2 Chloride# 105 mmol/L 97-110 47 Carbon Dioxide 31 mmol/L 24-34 Glucose 84 mg/dL 70-105 BUN 16 mg/dL 6-26 Creatinine 0.7 mg/dL 0.5-1.4 Calcium 9.7 mg/dL 8.5-10.2 Non Kathleen Egfr >60 >60 48 Kathleen Egfr >60 >60 49 Anion Gap 7 mmol/L 7-16 50 Laboratory test 02/10/2017 [facility] Cytology Fluid SEE NOTE 51 finding Specimen Basic Metabolic 12/30/2016 [facility] Glucose 122 mg/dL High 74-106 [...] 9.5 mg/dL N 8.5-10.1 Lipid Treatment 11/15/2016 [facility] Cholesterol 76 mg/dL 50-199 54 Triglycerides 55 mg/dL 30-200 HDL 39 mg/dL 35-85 55 Chol/ HDL Ratio 2.0 ratio Low 3.7-5.6 VLDL 11 mg/dL 2-29 LDL (Calc) 26 mg/dL 20-99 56 Alt 25 U/L 3-42 Ast 33 U/L 8-42 CBC With Auto Diff 11/15/2016 [facility] WBC 4.3 K/uL 4.1-11.0 RBC 3.45 M/uL [...] K/uL 0.0-0.3 CBC With Auto Diff 09/23/2016 [facility] WBC 3.7 K/uL Low 4.1-11.0 57 RBC [...] 45 ng/mL 31- 100 Lipid Treatment 07/02/2016 [facility] Cholesterol 93 mg/dL 50-199 Triglycerides 55 mg/dL 30-200 HDL 33 mg/dL Low 35-85 61 Chol/ HDL Ratio 2.8 ratio Low 3.7-5.6 VLDL 11 mg/dL 2-29 LDL (Calc) 49 mg/dL 20-99 62 Alt 17 U/L 3-42 Ast 22 U/L 8-42 CBC With Auto Diff 07/02/2016 [facility] 6.6 K/uL 4.1-11.0 RBC 2.46 M/uL [...] Basophils 0.0 K/uL 0.0-0.3 Laboratory test 06/25/2016 [facility] Urine Culture Microbiology res <SEE 63, 64 [...] [HPF] High (0-3) 72 Comprehensive Metabolic 05/27/2016 [facility] Glucose 101 mg/dL N 74-106 [...] U/L N 45-117 Laboratory test finding 05/27/2016 [facility] CK 52 U/L N 26-192 (315)- - Troponin-I < 0.015 ng/mL N 75 CBS W/Automated Diff 05/27/2016 [facility] White Blood 5.0 K/uL N 3.1-10.7 (315)- [...] 40.4-72.8 Lymph % 11.2 % Low 17.0-46.1 Petroleum % 8.6 % N 4.3-13.2 Eo% 0.6 % N 0.0-6.6 Bas% 0.6 % N 0.0-1.1 Neut# 3.94 K/uL N 1.8-7.0 Lymph # 0.56 K/uL Low 1.8-7.0 Petroleum # 0.43 K/uL N 0.3-0.9 Eos # 0.03 K/uL N 0.0-0.5 Baso # 0.03 K/uL N 0.0-0.1 Slide Review 05/27/2016 [facility] Slide Review . N 76 (315)- - RBC Morphology Only 05/27/2016 [facility] Anisocytosis 0- 1+ N (315)- - Macrocytosis 2+ N Protime 05/27/2016 [facility] Protime 13.2 seconds N 12.0-14.4 (315)- - Inr 1.0 N 0.9-1.1 77 Laboratory test 05/27/2016 [facility] Act Partial 28.2 seconds N 23.4-35.0 78 finding (315)- - Thrombo Time Laboratory test 05/27/2016 [facility] Glucose,Bedsi 93 mg /dL N 70-110 79 finding (315)- - de Hepatic Panel 04/24/2016 [facility] Total Protein 5.9 g/dL Low 6.0-8.0 80 (LFT) Albumin 3.7 g/dL 3.6-4.9 Total Bilirubin 2.3 Consistent w <SEE NOTE> mg/dL High 0.1-1.3 81 Direct Bilirubin 0.3 mg/dL 0.0-0.4 Alkaline Phosphatase 66 U/L 24-140 Alt 25 U/L 3-42 Ast 21 U/L 8-42 Laboratory test 04/19/2016 [facility] Anaerobic SPECIMEN 82 finding [phone] Culture DESCRI> Laboratory test 04/19/2016 [facility] Wound [...] Folate 20.8 ng/ml 5.9-24.8 Laboratory test 01/17/2016 [facility] Blood Smear Review See Note [...] 0.2 K/ul 0.0-1.2 Laboratory test 10/28/2015 [facility] Throat PO Culture SPECIMEN 95 finding [phone] DESCRI> Lipid Treatment 09/28/2015 [facility] Cholesterol 204 [...] Abs Basophils# 0.0 K/ul 0.0-0.3 Lipid 06/22/2015 [facility] Cholesterol 200 mg/dL High 50-199 99 Triglycerides 135 mg/dL 30-200 HDL 37 mg/dL 35-85 100 Chol/ HDL Ratio 5.4 ratio 3.7-5.6 VLDL 27 mg/dL 2-29 LDL (Calc) 136 mg/dL High 20-99 101 Basic (BMP) 06/22/2015 [facility] Sodium 139 mmol/L 134-142 Potassium 4.2 mmol/L 3.5-5.2 Chloride 103 mmol/L 97-109 Carbon Dioxide 29 mmol/L 24-34 Glucose 78 mg/dL 70-105 BUN 12 mg/dL 6-26 Creatinine 0.6 mg/dL 0.5-1.4 Calcium 10.0 mg/dL 8.5-10.2 Anion Gap 11 mmol/L 6-14 Non Kathleen Egfr >60 >60 102 Kathlene Egfr >60 >60 103 CBC With Auto Diff 06/22/2015 [facility] WBC 3.4 K/uL Low 4.1-11.0 RBC 3.26 [...] 0.0 K/uL 0.0-0.3 Hepatic Panel (LFT) 06/22/2015 Total Protein 6.4 g/dL 6.0-8.0 Albumin 4.4 g/dL 3.6-4.9 Total Bilirubin 3.3 mg/dL High 0.1-1.3 Direct Bilirubin 0.3 mg/dL 0.0-0.4 Alkaline Phosphatase 90 U/L 24-140 Alt 12 U/L 3-42 Ast 21 U/L 8-42 Laboratory test 04/17/2015 [facility] Pap Smear Thin Prep SEE NOTE 104 [...] 0.0 K/ul 0.0-0.3 Hepatic Panel (LFT) 12/12/2014 Total Protein 6.6 g/dL 6.0-8.0 Albumin 4.5 g/dL 3.6-4.9 Total Bilirubin 2.5 mg/dL High 0.1-1.3 Direct Bilirubin 0.3 mg/dL 0.0-0.4 Alkaline Phosphatase 86 U/L 24-140 Alt 11 U/L 3-42 Ast 15 U/L 8-42 Lipid 12/12/2014 Cholesterol 175 mg/dL 50-199 Triglycerides 94 mg/dL 30-200 HDL 54 mg/dL 35-85 106 Chol/ HDL Ratio 3.2 ratio Low 3.7-5.6 VLDL 19 mg/dL 2-29 LDL (Calc) 102 mg/dL High 20-99 107 Laboratory test finding 12/12/2014 Vit D,25 Hydroxy 62 ng/mL 31- 100 CBC With Auto Diff 12/12/2014 WBC 9.2 K/uL 4.1-11.0 RBC 3.20 M/uL [...] 0.0-4.0 % Lymph 22 % 20-44 % Petroleum 7.0 % 2.0-10.0 % Alanna 64 % 50-70 Absolute Baso. 0.1 K/ul 0.0-0.3 Absolute Eos. 0.3 K/ul 0.0-0.5 Absolute Lymph. 1.1 K/ul 0.8-4.8 Absolute Petroleum. 0.3 K/ul 0.1-1.0 Absolute Alanna. 3.09 K/ul [...] K/uL 3.1-10.7 Hepatic Function Panel LFT 09/30/2013 N2N/CCD Import Albumin 4.1 g/dL 3.5-5.0 Alk. Phos. [...] % Lymph 14 % Low 20-44 % Petroleum 7.9 % 2.0-10.0 % Alanna 74 % High 50-70 Absolute Baso. 0.0 K/ul 0.0-0.3 Absolute Eos. 0.1 K/ul 0.0-0.5 Absolute Lymph. 0.4 K/ul Low 0.8-4.8 Absolute Petroleum. 0.2 K/ul 0.1-1.0 Absolute Alanna. 2.25 K/ul [...] by repeat analysis and called to Nurse Sesay by Jenise Campos at 11/06/2017 12:36 PM. [...] reference range on new analyzer 51 [facility]. [address] [place] [address] CYTOLOGY REPORT Source of Specimen(s): A: LBP [...] Out By Michael Marcus MD [facility]: Kathy MATHEW([facility]) [facility] ICD Code: R31.9 Unless otherwise specified, testing performed by [facility] [address] [place] [id number] 52 RLQ PAIN,VOMIT,NAUSEA 53 Note: Persistent reduction [...] >189 57 cc; Dr Oneill (FAXED 09/24 AD) mid Jauary 2016 Fastin hours 58 CC: DR ONEILLFALL 2015 PRE-OV FALL 2015 PRE-OV FALL 2015 PRE-OV 59 Concerning GFR Guidelines: Normal function or [...] 65 Unless otherwise specified, testing performed by [facility] [place] [address] 66 Unless otherwise specified, testing performed by [facility] [address] [place] [address] 67 [facility]. [address] [place] [address] CYTOLOGY REPORT Source of Specimen(s): A: LBP [...] Out By Ana Gray MD [facility]: Kathy MATHEW([facility]) [facility] ICD Code: R31.9 Unless otherwise specified, testing performed by [facility] [place] [address] 68 Unless otherwise specified, testing performed by [facility] [place], [address] [address] 69 [facility]. [address] [place] [address] CYTOLOGY REPORT Source of Specimen(s): A: LBP [...] Out By Michael Marcus MD [facility]: Kirsten MATHEW([facility]) [facility] ICD Code: R31.9 Unless otherwise specified, testing performed by Laboratory [facility] [employer]! [address] [address] 70 Microbiology results SOURCE URINE FINAL RESULT No growth 71 HIV COMBO TO BE PERFORMED AT [facility]. RESULTS TO FOLLOW 72 Unless otherwise specified, testing performed by [facility] [employer] [address] [address] 73 APHASIA SINCE FRIDAY AM 74 Note: [...] Unless otherwise specified, testing performed by [facility] [address] [place] [address] 85 CC: DR ONEILL - FAXED 04/17 [...] REC'D 1 PREPARED SMEAR FOR PATH REVIEW. [facility] REVIEW CODE CODE: I Signed Electronically signed SUDILOVSKY,ERIKA MD [id number] CC: DR ONEILL (SENT [...] Severely decreased: 15-29 Renal failure: <15 104 [facility] [employer] [address] [place] [address] GYNECOLOGIC CYTOLOGY REPORT Accession Number: [id number] Source of Specimen(s): A: Thin Prep Cervical [...] Signed Out By Kathy MATHEW(ASCP) [facility] dss Unless otherwise specified, testing performed by [facility] [address] [place] [address] 105 11/13 PREOV 106 Per NCEP ATP [...] 108 NO SPECIMEN, CANCEL ORDER PER ZEE Carmona [facility] 109 Result confirmed by repeat analysis. Procedures Date Code Description Status 09/08/2018 15090441 Mammogram Completed 07/16/2018 607689412 Bone Mineral Density Test Completed 11/05/2017 81901 Electrocardiogram Complete Completed 10/21/2017 90489 Electrocardiogram Complete Completed 10/28/2016 12303 Electrocardiogram Complete Completed 10/04/2016 [id number] Colonoscopy Completed 08/10/2016 14132 Measure Blood Oxygen Level Single Determination Completed 07/15/2016 56700 Bone Density Study (Dexa) Axial Skeleton Completed (Hips,Pelvis,Spine) 07/15/2016 839729002 Bone Mineral Density Test Completed 05/27/2016 45216 Measure Blood Oxygen Level Single Determination Completed 04/19/2016 98092 Echography Abdominal Limited Completed 11/17/2015 55336 Radiologic Exam Hip Unilateral With Pelvis 2-3 Views Completed 06/21/2015 [id number] Mammogram Completed 02/03/2015 89538 Measure Blood Oxygen Level Single Determination Completed 10/31/2014 88332 X-Ray Chest Two Views Frontal & Lateral Completed Encounters Type Date Location Provider Dx Diagnosis Office Visit 10/22/2018 11:30a Joe Broderick MD M54.5 Low back pain R10.13 Epigastric pain Office Visit 10/06/2018 8:00a Joe Broderick R10.13 Epigastric pain MD Office Visit 09/02/2018 10:00a Joe Broderick, 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 Q21.1 Atrial septal defect M81.0 Age-related osteoporosis w/o current pathological fracture 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, 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 D70.9 Neutropenia, unspecified Z12.31 Encntr screen mammogram for malignant neoplasm of breast J47.9 Bronchiectasis, uncomplicated Z79.899 Other shelter (current) drug therapy Office Visit 08/15/2018 8:45a Shanice Alexis PA J01.90 Acute sinusitis, unspecified N64.4 Mastodynia Office Visit 07/27/2018 3:30p Joe Broderick 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 Office Visit 07/17/2018 11:30a Joe Broderick 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 R68.84 Jaw pain M81.0 Age-related osteoporosis w/o current pathological fracture Office Visit 07/11/2018 10:30a Shanice Alexis PA H92.01 Otalgia, RIGHT ear Office Visit 03/28/2018 10:15a [facility] Gould, Darnell, R35.0 Frequency of micturition Office Visit 02/20/2018 11:30a [facility] Joe Herron, M15.9 Polyosteoarthritis, unspecified 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, multiple sites 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, unspecified D70.9 Neutropenia, 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 J47.9 Bronchiectasis, uncomplicated M16.11 Unilateral primary osteoarthritis, RIGHT hip Z79.899 Other shelter (current) drug therapy Office Visit 12/30/2017 11:00a [facility] Joe Herron MD M25.561 Pain in RIGHT knee Office Visit 11/03/2017 9:30a [facility] Joe Herron MD R10.11 RIGHT upper quadrant pain R94.5 Abnormal results of liver function studies Office Visit 10/30/2017 10:45a [facility] Emma Mcmahon MD R10.811 RIGHT upper quadrant abdominal tenderness Z11.59 Encounter for screening for other viral diseases Z87.442 Personal history of urinary calculi 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 Office Visit 10/21/2017 9:00a [facility] Gauri Herron, R07.9 Chest pain, [employer] SUPER[employer]OR unspecified Office Visit 10/15/2017 10:00a [facility] Joe Herron, Z23 Encounter for MD immunization K51.20 Ulcerative [...] other viral diseases Office Visit 08/07/2017 11:45a [facility] Joe Herron MD K14.0 Glossitis D64.9 Anemia, unspecified R53.83 Other fatigue Office Visit 06/13/2017 9:45a Gauri Broderick, R30.0 Dysuria [employer]PER[employer] Office Visit 06/02/2017 11:15a Joe Broderick M27.2 Inflammatory MD conditions of jaws 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 Office Visit 05/28/2017 11:15a Joe Broderick M27.2 Inflammatory MD conditions of jaws Office Visit 05/24/2017 9:30a Joe Broderick M27.2 Inflammatory MD conditions of jaws Office Visit 04/25/2017 11:30a Joe Broderick, R20.2 Paresthesia of skin MD Office Visit 04/04/2017 10:45a Joe Broderick 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, unspecified J47.9 Bronchiectasis, uncomplicated D70.9 Neutropenia, 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 J31.0 Chronic rhinitis M15.9 Polyosteoarthritis, unspecified M85.89 Ot disrd of bone density and structure, multiple [...] medical exam w/o abnormal findings Z79.899 Other 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 project manager (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) drug 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 R20.2 Paresthesia of skin Office Visit 11/18/2016 2:00p Joe Broderick, R20.2 Paresthesia of skin MD Office Visit 11/08/2016 2:15p Joe Broderick R07.9 Chest pain, MD unspecified Office Visit 10/28/2016 3:30p [facility] Joe Herron, R07.9 Chest pain, MD unspecified Office Visit 10/15/2016 1:00p [facility] Gauri Herron, R59.0 Localized enlarged [employer]PER[employer]OR lymph nodes Office Visit 08/14/2016 10:45a [facility] Joe Herron, K51.20 Ulcerative (chronic) MD proctitis without complications D64.9 Anemia, unspecified Office Visit 08/10/2016 9:00a [facility] Gauri Herron, R53.1 Weakness FIN[employer] SUPER[employer]OR Office Visit 08/09/2016 8:45a [facility] Joe Herron, J30.9 Allergic rhinitis, unspecified H10.89 Other conjunctivitis Office Visit 07/24/2016 11:30a [facility] [facility] Joe Herron K51.20 Ulcerative (chronic) MD proctitis [...] J47.9 Bronchiectasis, uncomplicated Office Visit 07/01/2016 10:00a [facility] Joe Herron MD K62.5 Hemorrhage of anus and rectum K51.211 Ulcerative (chronic) proctitis with rectal bleeding Office Visit 06/21/2016 8:45a [facility] Joe Herron, R31.9 Hematuria, unspecified MD R10.9 Unspecified abdominal pain K62.5 Hemorrhage of anus and rectum 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 Office Visit 06/14/2016 2:00p [facility] Minerva Rae PA Z01.419 Encntr for 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) (routine) w/o abn findings R31.9 Hematuria, 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 E80.4 Gilbert syndrome Office Visit 05/27/2016 9:45a [facility] Germaine, F80.1 Expressive language Gauri, FINAL [employer]SEM[employer]ING SUPERVISOR disorder Office Visit 04/19/2016 3:15p [facility] Joe Herron, A09 Infectious MD gastroenteritis and colitis, unspecified E80.4 Gilbert syndrome 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 R21 Rash and other nonspecific skin eruption Office Visit 04/16/2016 1:00p [facility] Minerva Rae, A09 Infectious PA gastroenteritis and colitis, unspecified Office Visit 04/11/2016 9:45a [facility] Minerva Rae, B35.9 Dermatophytosis, PA unspecified Office Visit 03/20/2016 1:15p [facility] Minerva Rae, R30.0 Dysuria PA Office Visit 02/19/2016 4:30p [facility] Germaine, H81.399 Other peripheral MD Joe vertigo, unspecified ear Office Visit 01/02/2016 3:45p [facility] Germaine, E78.9 Disorder of lipoprotein MD Joe metabolism, 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9 Acute upper [employer]PER[employer] respiratory infection, unspecified Office Visit 08/15/2015 11:00a [facility] Minerva Rae PA K29.50 Unspecified chronic gastritis without bleeding Office Visit 06/27/2015 3:45p [facility] Joe Herron, J01.90 Acute sinusitis, unspecified 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, 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 K29.50 Unspecified chronic gastritis without bleeding J47.9 Bronchiectasis, uncomplicated J31.0 Chronic rhinitis D70.9 Neutropenia, unspecified 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, multiple sites Office Visit 06/07/2015 10:30a [facility] Joe Herron, H83.09 Labyrinthitis, unspecified ear Office Visit 05/26/2015 2:15p [facility] Joe Herron, J01.90 Acute sinusitis, MD unspecified Office Visit 05/09/2015 3:30p [facility] Joe Herron, 786.9 Respiratory & Chest MD Symptoms Other 535.50 Gastritis & Gastroduodenitis Unspec W/O Hemorrhage Office Visit 04/21/2015 9:45a [facility] Joe Herron, 786.9 Respiratory & Chest MD Symptoms Other Office Visit 04/17/2015 10:30a [facility] Minerva Rae PA V72.31 Routine Gastroenterologist Examination V76.12 Screening Mammogram Malig Paulie Other Office Visit 02/03/2015 8:00a [facility] Gauri Herron, 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 Office Visit 12/20/2014 3:45p [facility] Joe Herron MD 461.9 Sinusitis Acute Unspec 494.0 Bronchiectasis Without Acute Exacerbation 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.90 Bone & Cartilage Disorder Unspec 592.0 Calculus Of Kidney 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 535.50 Gastritis & Gastroduodenitis Unspec W/O Hemorrhage 715.00 Osteoarthrosis Generalized Site Unspec 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 Office Visit 11/26/2014 11:00a [facility] Joe Herron, 789.03 Pain Abdominal RIGHT MD Lower Quadrant Office Visit 11/07/2014 3:30p [facility] Joe Herron, 494.0 Bronchiectasis Without MD Acute Exacerbation 592.0 Calculus Of Kidney Plan of Treatment Future Appointment(s):02/23/2019 7:50 am - Schedule, Laboratory at [facility]2018 1:00 pm - Joe Herron MD at [facility]10/31/2018 - Darnell Gould, DOJ01.90 Acute sinusitis, unspecifiedNew Medication:Levofloxacin 250 mg - 1 tablet by mouth once daily for 7 daysFollow up:Follow up as needed.
--- NOTE | 2018-11-23 15:14 | UC ---
Complaint Female HPI - HPI Summary HPI Summary: History of hemorrhoids, but she doesn't feel the rectal itching and burning is from her hemorrhoids. She looked up information and she is incredibly embarassed she may have pinworms. She has not seen any, she does not have any cats or dogs, she does not work with children - History Of Current Complaint Stated Complaint: PERSONAL Time Seen by Provider: 11/23/18 15:14 Hx Obtained From: Patient ?: No Onset/Duration: Gradual Onset, Other - Past 2-3 days Timing: Constant Severity Initially: Mild Severity Currently: Mild Character: Burning - And itching Aggravating Factor(s): Nothing Alleviating Factor(s): Nothing Associated Signs And Symptoms: Positive: Negative - Allergies/Home Medications Allergies/Adverse Reactions: Allergies Allergy/AdvReac Type Severity Reaction Status Date / Time Sulfa (Sulfonamide Allergy Rash And Verified 11/23/18 15:17 Antibiotics) Itching Tetracyclines Allergy GI Upset Verified 11/23/18 15:17 Home Medications: Home Medications Amoxicillin PO (*) [Amoxicillin 875 MG (*)] 1 tab BID 11/23/18 [History Confirmed 11/23/18] PMH/Surg Hx/FS Hx/Imm Hx Previously Healthy: Yes - Surgical History Surgical History: Yes Surgery Procedure, Year, and Place: sinus surgery [facility] [employer] X2 - Family History Known Family History: Positive: None, Other - TIAs Negative: Cardiac Disease, Hypertension, Diabetes - Social History Alcohol Use: None Substance Use Type: None Smoking Status (MU): Never Smoked Tobacco - Immunization History Most Recent Influenza Vaccination: Not the 2014/2015 Season Review of Systems All Other Systems Reviewed And Are Negative: Yes Gastrointestinal: Positive: Other - Rectal itching and burning over the past 2- 3 days. Doesn't think it's her hemorrhoids. She has medication for her hemorrhoids. She is very concerned she may have pinworms because she read about them Physical Exam Triage Information Reviewed: Yes Appearance: Well-Appearing, No Pain Distress, Well-Nourished Vital Signs Reviewed: Yes Skin Exam: Normal - Mild hemorrhoids present but not inflamed or swollen, no pinworms visualized Complaint Female Dx - Course Course Of Treatment: Pt more embarrassed than anything that she may have pinworms. We discussed how she could check for pinworms and if she wants to bring the tape in for us to visualize it, she may do that with the understanding she will have to check in as a patient again. She is agreeable to this. - Differential Dx/Diagnosis Differential Diagnosis/HQI/PQRI: Other - Pinworms, hemorrhoids Provider Diagnosis: Rectal itching Discharge - Sign-Out/Discharge Documenting (check all that apply): Patient Departure All imaging exams completed and their final reports reviewed: No Studies - Discharge Plan Condition: Good Disposition: HOME Patient Education Materials: Pinworm Infection (ED) Referrals: No Primary Care Phys,NOPCP [Primary Care Provider] - Additional Instructions: Please call [facility] at [phone] to get help establishing care with a primary care provider. If you find that you have pinworms, there is over the counter medication you can buy for treatment. Good handwashing - Billing Disposition and Condition Condition: GOOD Disposition: Home
[2018-11-23 15:22] VITALS: BP 120/43
== END 2018-11-23 15:55 | disposition home or self-care (01) ==
LOC: UCCORT 13:03
DX: L29.0 Pruritus ani (principal); K64.4 Residual hemorrhoidal skin tags; Z88.2 Allergy status to sulfonamides; Z88.1 Allergy status to other antibiotic agents
CPT/HCPCS: 99211; G0463

== ENCOUNTER 2018-11-28 07:07 | Emergency (ER) | payer MEDICARE, BC ==
--- OUTSIDE RECORDS SUMMARY | 2018-11-28 07:18 | XMS REPORT | Continuity of Care Document ---
:1950 External Reference #:[id number] Author Name Gauri Herron NP Address [address] [place] [address] Care Team Providers Name Role Phone Joe Herron MD Care Team Information Senior Engineering Team Leader Unavailable Payers Date Identification Numbers Payment Provider Subscriber Effective: 2016 Policy Number: [id number] Medicare Rupinder Piña [employer] Name: Federal [address] PayID: [id number] [facility] [place] [address] Effective: 2011 Policy Number: [id number] [facility] Commercial Rupinder Piña Group Name: Individual [address] [address] PayID: [id number] GRETCHEN Ledesma [phone] Advance Directives Description No Information Available Problems [...] Patient has never smoked Smoking Status Reviewed: 11/23/18 Patient has never smoked Allergies, Adverse Reactions, Alerts Date Description Reaction Status Severity Comments 05/07/2005 Tetracycline Active GI 12/20/2014 Sulfa Drugs Active Hives;SOB 05/07/2005 Amoxicillin Inactive GI Medications Medication Date Status Form Strength Qnty SIG Indications Ordering Provider Fluticasone 11/14/ Active Suspension 50mcg/Act 16uni 1 spray J31.0 Digiovann Propionate 2019 ts each a, nostril Gauri, daily AUCTION ASSISTANT Amoxicillin 11/14/ Active Tablets 875mg 28tab 1 by mouth J01.90 Digiovann 2019 s twice a a, day for 14 Gauri, days AUCTION ASSISTANT Hydrocortisone 07/17/ Active Enema 100mg/60M 2week Use [...] J06.9 Digiovanna, 09/27/2015 for 7 days Gauri, AUCTION ASSISTANT Levofloxacin 06/27/2015 - Hx Tablets 250mg 7tabs [...] mouth 461.9 Baljeetiovanna, 04/17/2015 daily for Gauri, AUCTION ASSISTANT 7 days Prednisone 01/10/2015 - Hx Tablets [...] each J31.0 Baljeetioyonisna, 11/14/2018 ct nostril Gauri, AUCTION ASSISTANT twice a day Triamcinolone 06/27/2013 - Hx [...] - Hx Aerosol 108(90B 2 puffs J47.9 Industry, 06/12/2017 ase) qid as MD Abner mcg/Act [...] # Q2039 Given 09/15/2018 Flu Vaccine NOS 10449 Given 10/15/2017 Pneumococcal 23 Immunization [id number] Adult Or Immunosuppressed Patient 52099 Given 07/31/2016 Tdap (Adacel) Ages 7 And Above [id number] Only 32873 Given 07/20/2015 Prevnar 13 Pneumococal Conjugate [id number] Vaccine 84582 Given 10/21/2012 Pneumococcal 23 Immunization VIS DATE 06/06/09 Adult Or Immunosuppressed Patient 33195 Given 08/07/2009 Afluria Or Fluvirin Flu Vac Intramuscular 21317 Given 07/26/2008 Afluria Or Fluvirin Flu Vac Intramuscular 88382 Given 12/14/2004 Immunization Td 7 Yrs Or Older [id number] Refused 07/17/2018 Flu Vaccine NOS WILL WAIT TILL SHE IS OFF THE PREDNISONW [id number] Refused 10/21/2017 Influenza Vac, Quadrivalent, Split, 0.5mL Dosage, Im Use [id number] Refused 06/27/2015 Prevnar 13 Pneumococal DOESN'T WANT TODAY; MADE Conjugate Vaccine EARLY AM NV FOR 11-5 Vital Signs Date Vital Result Comment 11/23/2018 10:29am Body Temperature 97.9 F tympanic Weight 115.25 lb Heart Rate 76 /min BP Systolic 124 mmHg BP Diastolic 80 mmHg Respiratory Rate 16 /min Height 61 inches 5'1" BMI (Body Mass Index) 21.8 kg/m2 11/14/2018 10:29am Body Temperature 97.1 F Weight [...] Test Result H/L Range Note Laboratory test 11/23/2018 [facility] Urine Culture <pending> finding Laboratory test 11/23/2018 [facility] Cytology Fluid <pending> finding Specimen -RL Laboratory test 08/10/2018 [facility] Vitamin D 25 55 ng/mL 30-100 1, 2 finding Hydroxy Basic (BMP) 08/10/2018 [facility] Sodium 140 mmol/L 135-146 3 Potassium 4.2 mmol/L 3.5-5.2 Chloride# 102 mmol/L 97-110 4 Carbon Dioxide 29 mmol/L 24-34 Glucose 80 mg/dL 70-105 BUN 11 mg/dL 6-26 Creatinine 0.6 mg/dL 0.5-1.4 Calcium 9.5 mg/dL 8.5-10.2 Non Kathleen Egfr >60 >60 5 Kathleen Egfr >60 >60 6 Anion Gap 9 mmol/L 5-15 7 Lipid 08/10/2018 [facility] Cholesterol 110 mg/dL 50-199 Triglycerides 105 mg/dL 30-200 HDL 35 mg/dL 35-85 8 Chol/ HDL Ratio 3.1 ratio Low 3.7-5.6 VLDL 21 mg/dL 2-29 LDL (Calc) 54 mg/dL 20-99 9 CBC with Auto Diff-fcmg 08/10/2018 [facility] WBC 5.5 K/uL 4.1-11.0 RBC 3.64 M/uL Low 4.00-5.40 Hemoglobin 14.2 gm/dL 12.0-16.0 Hematocrit 40.6 % 36.0-47.0 MCV 111.5 fL High 80.0-97.0 MCH 39.0 pg High 27.0-32.0 MCHC 35.0 g/dL 32.0-36.0 RDW 17.6 % High 11.5-14.5 PLT Count 263 K/ul 140-400 MPV 8.6 FL 7.1-10.7 Manual Differential 08/10/2018 [facility] Neutrophils 69 % 35-75 Band 5 % [...] Abnormal None Seen Hepatic Panel (LFT) 08/10/2018 [facility] Total Protein 5.7 g/dL Low 6.0- 8.0 Albumin 3.7 g/dL 3.6-4.9 Total Bilirubin 3.4 mg/dL High 0.1-1.3 10 Direct Bilirubin 0.4 mg/dL 0.0-0.4 Alkaline Phosphatase 64 U/L 24-140 Alt 55 U/L High 3-42 Ast 41 U/L 8-42 Laboratory test 03/28/2018 [facility] Urine Culture SPECIMEN 11 finding [phone] DESCRI> CBC With Auto Diff 02/13/2018 [facility] WBC 4.7 K/uL 4.1-11. 12 0 RBC [...] Ast 31 U/L 8-42 Basic (BMP) 02/13/2018 [facility] Sodium 141 mmol/L 135-146 15 Potassium 4.1 mmol/L 3.5-5.2 Chloride# 103 mmol/L 97-110 16 Carbon Dioxide 28 mmol/L 24-34 Glucose 86 mg/dL 70-105 BUN 11 mg/dL 6-26 Creatinine 0.7 mg/dL 0.5-1.4 Calcium 9.7 mg/dL 8.5-10.2 Non Kathleen Egfr >60 >60 17 Kathleen Egfr >60 >60 18 Anion Gap 10 mmol/L 5-15 19 Laboratory 02/13/2018 [facility] Hepatitis C NON REACTIVE Non 20 test finding Virus S/CORatio(Niranjan Reactive Antibody Liver Function 12/08/2017 [facility] Total Protein 6.4 g/ dL N 6.4-8.2 21 Tests (315)- - Albumin 3.4 g/dL N 3.4-5.0 Globulin 3.0 g/dL N 1.9-4.3 Alb/Glob 1.1 ratio Bilirubin,Total 3.6 mg/dL High 0.2-1.0 Bilirubin,Direct 0.1 mg/dL N 0.0-0.2 Bilirubin,Indirect 3.5 mg/dL High 0.0-0.9 Sgot/Ast 64 U/L High 15-37 SGPT/Alt 104 U/L High 12-78 Alkaline Phosphatase 100 U/L N 45-117 CBC 12/08/2017 [facility] White Blood Count 6.8 K/uL N [...] 11.1 fL N 8.9-12.4 Path Review: 12/08/2017 [facility] Path Review: NI 22 (315)- - Laboratory test 12/08/2017 [facility] RBC Morphology 2+ finding (315)- - Only CBC With Auto 11/06/2017 [facility] WBC 3.3 K/uL Low 4.1-11. 23 Diff [...] 0.0 K/uL 0.0-0.3 Hepatic Panel (LFT) 11/06/2017 Total Protein 5.5 g/dL Low 6.0- 8.0 [...] U/L 8-42 CBC With Auto Diff 09/29/2017 [facility] WBC 5.1 K/uL 4.1-11.0 RBC 3.45 M/uL [...] g/dL 50-170 Vitamin B12 415 pg/mL 180-914 Affirm 06/13/2017 [facility] Trichomonas Vaginalis Negative Negative Gardnerella Vaginalis Negative Negative Mony Species Negative Negative Laboratory test 06/13/2017 [facility] Urine Culture Microbiology res <SEE 42 finding NOTE> Lipid Treatment 03/26/2017 [facility] Cholesterol 69 mg/dL [...] NOTE 51 finding Specimen Basic Metabolic 12/30/2016 [facility] Glucose 122 mg/dL High 74-106 [...] U/L 8-42 CBC With Auto Diff 11/15/2016 [facility] 4.3 K/uL 4.1-11.0 RBC 3.45 M/uL [...] 0.1 K/uL 0.0-0.3 Laboratory test finding 09/23/2016 [facility] Ferritin 63.0 ng/ml 11.0- 306.0 Iron, Total 94 g/dL 50-170 Vitamin B12 435 pg/mL 180-914 Folate 23.2 ng/ml 5.9-24.8 CBC With Auto Diff 07/02/2016 [facility] WBC 6.6 K/uL 4.1-11.0 58 RBC 2.46 M/uL Low 4.00-5.40 Hemoglobin 9.7 [...] Abs Basophils 0.0 K/uL 0.0-0.3 Lipid Treatment 07/02/2016 [facility] Cholesterol 93 mg/dL 50-199 Triglycerides 55 mg/dL 30-200 HDL 33 mg/dL Low 35-85 59 Chol/ HDL Ratio 2.8 ratio Low 3.7-5.6 VLDL 11 mg/dL 2-29 LDL (Calc) 49 mg/dL 20-99 60 Alt 17 U/L 3-42 Ast 22 U/L 8-42 Laboratory test finding 07/02/2016 [facility] Vit D,25 Hydroxy 45 ng/mL 31- 100 Basic (BMP) 07/02/2016 [facility] Sodium 138 mmol/L 134-142 Potassium 3.8 mmol/L 3.5-5.2 Chloride 104 mmol/L 97-109 Carbon Dioxide 28 mmol/L 24-34 Glucose 97 mg/dL 70-105 BUN 12 mg/dL 6-26 Creatinine 0.5 mg/dL 0.5-1.4 Calcium 9.7 mg/dL 8.5-10.2 Anion Gap 10 mmol/L 6-14 Non Kathleen Egfr >60 >60 61 Kathleen Egfr >60 >60 62 Laboratory test finding 06/25/2016 [facility] Bilirubin Urine NEGATIVE (Neg ) 63 Cytology [facility] SEE NOTE 64 Rout Urine W/ Micro -RL 06/25/2016 [facility] Color CHAS Appearance CLOUDY Spec Grav Urine 1.022 (1.003-1.030) PH Urine 8.0 High (5.0-7.5) Leuk Esterase NEGATIVE (Neg) Nitrite Urine NEGATIVE (Neg) Protein Urine NEGATIVE (Neg) Glucose Urine NEGATIVE (Neg) Ketone Urine NEGATIVE (Neg) Urobilinogen 1.0 mg/dL (0-1.0) Blood/HGB Urine NEGATIVE (Neg) Urine WBC 0-2 [HPF] (0-5) Urine RBC NONE SEEN [HPF] (0-2) Bacteria 2+ [HPF] Mucus 3+ [HPF] 65 Laboratory test 06/25/2016 [facility] Urine Culture Microbiology res <SEE 66, 67 finding NOTE> Rout Urine W/ Micro 06/18/2016 [facility] Color CHAS -RL Appearance CLOUDY Spec Grav Urine 1.014 (1.003-1.030) [...] [HPF] High (0-3) 72 Comprehensive Metabolic 05/27/2016 [facility] Glucose 101 mg/dL N 74-106 [...] U/L N 45-117 Laboratory test finding 05/27/2016 [facility] CK 52 U/L N 26-192 (315)- - Troponin-I < 0.015 ng/mL N 75 CBS W/Automated Diff 05/27/2016 [facility] White Blood 5.0 K/uL N [...] 40.4-72.8 Lymph % 11.2 % Low 17.0-46.1 [place] % 8.6 % N 4.3-13.2 Eo% 0.6 % N 0.0-6.6 Bas% 0.6 % N 0.0-1.1 Neut# 3.94 K/uL N 1.8-7.0 Lymph # 0.56 K/uL Low 1.8-7.0 [place] # 0.43 K/uL N 0.3-0.9 Eos # 0.03 K/uL N 0.0-0.5 Baso # 0.03 K/uL N 0.0-0.1 Slide Review 05/27/2016 [facility] Slide Review . N 76 (315)- - RBC Morphology Only 05/27/2016 [facility] Anisocytosis 0- 1+ N (315)- - Macrocytosis 2+ N Protime 05/27/2016 [facility] Protime 13.2 seconds N 12.0-14.4 (315)- - Inr 1.0 N 0.9-1.1 77 Laboratory test 05/27/2016 [facility] Act Partial 28.2 seconds N 23.4-35.0 78 finding (315)- - Thrombo Time Laboratory test 05/27/2016 [facility] Glucose,Bedsi 93 mg /dL N 70-110 79 finding (315)- - de Hepatic Panel 04/24/2016 [facility] Total Protein 5.9 g/dL Low 6.0-8.0 80 (LFT) Albumin 3.7 g/dL 3.6-4.9 Total Bilirubin 2.3 Consistent w <SEE NOTE> mg/dL High 0.1-1.3 81 Direct Bilirubin 0.3 mg/dL 0.0-0.4 Alkaline Phosphatase 66 U/L 24-140 Alt 25 U/L 3-42 Ast 21 U/L 8-42 Laboratory test 04/19/2016 [facility] Wound Culture SEE NOTE 82, 83 finding Laboratory test 04/19/2016 [facility] Anaerobic SPECIMEN 84 finding [phone] Culture DESCRI> Comprehensive 04/16/2016 [facility] Sodium 134 mmol/L 134-1 85 Metabolic (CMP) 42 Potassium 4.6 mmol/L 3.5-5.2 Chloride 97 mmol/L [...] 87 Non Kathleen Egfr >60 >60 88 CBC With Auto Diff 04/16/2016 [facility] WBC 7.5 K/uL 4.1-11.0 RBC 3.44 M/uL Low 4.00-5.40 Hemoglobin 13.8 [...] Abs Basophils 0.0 K/uL 0.0-0.3 Laboratory test 03/20/2016 [facility] Urine Culture Microbiology res 89 finding <SEE [...] Folate 20.8 ng/ml 5.9-24.8 Laboratory test 01/17/2016 [facility] Blood Smear Review See Note [...] Count 285 K/ul 140-400 Manual Differential 12/21/2015 [facility] Neutrophils 70 % 35-75 Band 4 % [...] 0.2 K/ul 0.0-1.2 Laboratory test 10/28/2015 [facility] Throat PO SPECIMEN 95 finding [phone] Culture DESCRI> CBC With Auto Diff 09/28/2015 [facility] WBC 4.7 K/uL 4.1-11. 96 0 RBC 3.42 M/uL Low 4.00-5.40 Hemoglobin 13.1 [...] 0.0-0.5 Abs Basophils# 0.0 K/ul 0.0-0.3 Lipid Treatment 09/28/2015 [facility] Cholesterol 204 mg/dL High 50-199 Triglycerides 93 mg/dL 30-200 HDL 44 mg/dL 35-85 97 Chol/ HDL Ratio 4.6 ratio 3.7-5.6 VLDL 19 mg/dL 2-29 LDL (Calc) 141 mg/dL High 20-99 98 Alt 12 U/L 3-42 Ast 21 U/L 8-42 Lipid 06/22/2015 [facility] Cholesterol 200 mg/dL High [...] >60 103 CBC With Auto Diff 06/22/2015 [facility] WBC 3.4 K/uL Low 4.1-11.0 RBC 3.26 [...] 0.0-4.0 % Lymph 22 % 20-44 % [place] 7.0 % 2.0-10.0 % Alanna 64 % 50-70 Absolute Baso. 0.1 K/ul 0.0-0.3 Absolute Eos. 0.3 K/ul 0.0-0.5 Absolute Lymph. 1.1 K/ul 0.8-4.8 Absolute [place]. 0.3 K/ul 0.1-1.0 Absolute Alanna. 3.09 K/ul [...] mg/dL 30.0-249.0 vLDL 41.0 ng/dL Laboratory test finding 04/21/2013 N2N/CCD Import % Baso. 1.2 % 0.0-2.0 % Eos. 2.6 % 0.0-4.0 % Lymph 14 % Low 20-44 % [place] 7.9 % 2.0-10.0 % Alanna 74 % High 50-70 Absolute Baso. 0.0 K/ul 0.0-0.3 Absolute Eos. 0.1 K/ul 0.0-0.5 Absolute Lymph. 0.4 K/ul Low 0.8-4.8 Absolute [place]. 0.2 K/ul 0.1-1.0 Absolute Alanna. 2.25 K/ul [...] WBC 3.0 K/ul Low 4.1-10.9 eGFR 77.2 Hepatic Function Panel LFT 04/21/2013 N2N/CCD Import Albumin 4.2 g/dL 3.5-5.0 Alk. Phos. 74.0 U/L 30.0-126.0 Alt 20.0 U/L 9.0-52.0 Ast 26.0 U/L 14.0-36.0 Total Bilirubin 3.4 mg/dL High 0.2-1.3 Total Protein 6.3 g/dL 6.3-8.2 Laboratory test 04/21/2013 N2N/CCD Import CBC/Manual See Note 108 finding Differential Laboratory test 11/04/2012 N2N/CCD Import Anisocytosis 1+ finding Band% 5 % 0-8 Basophil% 1 % [...] Updated reference range on new analyzer 51 Kno [facility] [employer] [facility]. [facility] [address] [place] [address] CYTOLOGY REPORT Source of Specimen(s): A: LBP [...] Out By Michael Marcus MD [facility] Supervisor: Kathy MATHEW(ASC) [facility] ICD Code: R31.9 Unless otherwise specified, testing performed by [facility] [place] [address] [place] [address] 52 RLQ PAIN,VOMIT,NAUSEA 53 Note: Persistent reduction [...] 2016 Fastin hours 58 CC: DR ONEILLFALL 2015-OV fall-OV fallOV 59 Per NCEP ATP III Guidelines: Results lower than 40 mg/dL are suggestive of increased risk for coronary artery disease. Results > or=to 60 mg/dL are considered a negative risk factor. 60 Per NCEP ATP III Guidelines: Normal Population <130 Patients with medical conditions: CHD/DM Optimal: <100 Borderline high: 130-159 High: 160-189 Very high: >189 61 Concerning GFR Guidelines: Normal function or mild [...] drugs that are excreted by the kidneys. 62 Concerning GFR Guidelines for Americans: Normal function or mild renal disease, if clinically at risk: >/=60 mL/min Moderately decreased: 30-59 Severely decreased: 15-29 Renal failure: <15 63 Unless otherwise specified, testing performed by [facility] [address] [address] 64 LABORATORY [employer] [facility]. [address] [place] [address] CYTOLOGY REPORT Source of Specimen(s): A: LBP [...] Out By Ana Gray MD [facility] Supervisor: Kathy Bedoya CT([facility]) [facility] ICD Code: R31.9 Unless otherwise specified, testing performed by [facility] [address] [place] [address] 65 Unless otherwise specified, testing performed by [facility] [address] [place] [address] 66 Will drop off week of 67 Microbiology results SOURCE URINE FINAL RESULT No growth 68 Unless otherwise specified, testing performed by [employer] [facility] [address] [place] [address] 69 [employer]. [address] [place] [address] CYTOLOGY REPORT Source of Specimen(s): A: LBP [...] Out By Michael Marcus MD [facility] Supervisor: Kirsten Stout CT([facility]) [facility] ICD Code: R31.9 Unless otherwise specified, testing performed by Laboratory [employer] [facility] [address] [place] [address] 70 Microbiology results SOURCE URINE FINAL RESULT No growth 71 HIV COMBO TO BE PERFORMED AT [facility]. RESULTS TO FOLLOW 72 Unless otherwise specified, testing performed by Laboratory [employer] [address] [place] [address] 73 APHASIA SINCE FRIDAY AM 74 Note: [...] 81 2.3 Consistent with previous result(s). 82 Culture - fluid from lesion on foot 83 SPECIMEN DESCRIPTION ABSCESS SPECIAL REQUESTS NONE GRAM STAIN NO WHITE BLOOD CELLS NO BACTERIA CULTURE RESULTS NO GROWTH REPORT STATUS FINAL 04/21/2016 Unless otherwise specified, testing performed by Laboratory [employer] [address] [place] [address] 84 SPECIMEN DESCRIPTION ABSCESS SPECIAL REQUESTS NONE CULTURE RESULTS NO ANAEROBES ISOLATED REPORT STATUS FINAL 04/22/2016 85 CC: DR ONEILL - FAXED 04/17 [...] REC'D 1 PREPARED SMEAR FOR PATH REVIEW. [facility] REVIEW CODE CODE: I Signed Electronically signed [...] decreased: 15-29 Renal failure: <15 104 LABORATORY [facility] [address] [place] [address] GYNECOLOGIC CYTOLOGY REPORT Accession Number: [id number] Source of Specimen(s): A: Thin Prep Cervical [...] Signed Out By Kathy MATHEW(ASCP) [facility] dss Unless otherwise specified, testing performed by [facility] [address] [place] [address] 105 11/13 PREOV 106 Per NCEP ATP [...] SPECIMEN, CANCEL ORDER PER ZEE Campos @ [facility] 109 Result confirmed by repeat analysis. Procedures Date Code Description Status 11/14/2018 70284 Measure Blood Oxygen Level Single Determination Completed 09/08/2018 28495389 Mammogram Completed 07/16/2018 483104216 Bone Mineral Density Test Completed 11/05/2017 68088 Electrocardiogram Complete Completed 10/21/2017 62716 Electrocardiogram Complete Completed 10/28/2016 69766 Electrocardiogram Complete Completed 10/04/2016 86127643 Colonoscopy Completed 08/10/2016 86453 Measure Blood Oxygen Level Single Determination Completed 07/15/2016 78003 Bone Density Study (Dexa) Axial Skeleton Completed (Hips,Pelvis,Spine) 07/15/2016 [id number] Bone Mineral Density Test Completed 05/27/2016 63846 Measure Blood Oxygen Level Single Determination Completed 04/19/2016 88903 Echography Abdominal Limited Completed 11/17/2015 09691 Radiologic Exam Hip Unilateral With Pelvis 2-3 Views Completed 06/21/2015 72283598 Mammogram Completed 02/03/2015 83068 Measure Blood Oxygen Level Single Determination Completed 10/31/2014 35608 X-Ray Chest Two Views Frontal & Lateral Completed Encounters Type Date Location Provider Dx Diagnosis Office Visit 11/14/2018 Delores Broderick.90 Acute sinusitis, 10:30a Gauri, AUCTION ASSISTANT unspecified Office Visit 10/31/2018 Darnell Roa DO J01.90 Acute sinusitis, 10:00a unspecified Office Visit 10/22/2018 [facility]anna, M54.5 Low back pain 11:30a MD Joe R10.13 Epigastric pain Office Visit 10/06/2018 8:00a [facility] Joe Herron, R10.13 Epigastric pain MD Office Visit 09/02/2018 10:00a [facility] Joe Herron, 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 Q21.1 Atrial septal defect M81.0 Age-related osteoporosis w/o current pathological fracture 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, 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 D70.9 Neutropenia, unspecified Z12.31 Encntr screen mammogram for malignant neoplasm of breast J47.9 Bronchiectasis, uncomplicated Z79.899 Other manager terminal (current) drug therapy Office Visit 08/15/2018 8:45a [facility] Shanice Rojas PA J01.90 Acute sinusitis, unspecified N64.4 Mastodynia Office Visit 07/27/2018 3:30p [facility] Joe Herron K51.20 Ulcerative (chronic) MD proctitis without complications Office Visit 07/17/2018 11:30a [facility] Joe Herron K51.20 Ulcerative (chronic) MD proctitis without complications R68.84 Jaw pain M81.0 Age-related osteoporosis w/o current pathological fracture Office Visit 07/11/2018 10:30a [facility] Shanice Rojas PA H92.01 Otalgia, RIGHT ear Office Visit 03/28/2018 10:15a [facility] Darnell Gould DO R35.0 Frequency of micturition Office Visit 02/20/2018 11:30a [facility] Joe Herron, M15.9 Polyosteoarthritis, unspecified M85.89 Ot disrd of bone density and structure, multiple sites 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, unspecified D70.9 Neutropenia, 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 J47.9 Bronchiectasis, uncomplicated M16.11 Unilateral primary osteoarthritis, RIGHT hip Z79.899 Other group home (current) drug therapy Office Visit 12/30/2017 11:00a [facility] Joe Herron MD M25.561 Pain in RIGHT knee Office Visit 11/03/2017 9:30a [facility] Joe Herron MD R10.11 RIGHT upper quadrant pain R94.5 Abnormal results of liver function studies Office Visit 10/30/2017 10:45a [facility] Emma Mcmahon MD R10.811 RIGHT upper quadrant abdominal tenderness Z11.59 Encounter for screening for other viral diseases Z87.442 Personal history of urinary calculi 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 Office Visit 10/21/2017 9:00a [facility] Gauri Herron, R07.9 Chest pain, AUCTION ASSISTANT unspecified Office Visit 10/15/2017 10:00a [facility] Joe Herron Z23 Encounter for MD immunization K51.20 Ulcerative [...] R53.83 Other fatigue Office Visit 06/13/2017 9:45a [facility] Gauri Herron, R30.0 Dysuria AUCTION ASSISTANT Office Visit 06/02/2017 11:15a [facility] Broderick M27.2 Inflammatory MD conditions of jaws 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 Office Visit 05/28/2017 11:15a Joe Broderick M27.2 Inflammatory MD conditions of jaws Office Visit 05/24/2017 9:30a Joe Broderick M27.2 Inflammatory MD conditions of jaws Office Visit 04/25/2017 11:30a Joe Broderick R20.2 Paresthesia of skin MD Office Visit [...] medical exam w/o abnormal findings Z79.899 Other group home (current) drug therapy R20.2 Paresthesia of skin Office Visit 11/18/2016 2:00p Joe Broderick, R20.2 Paresthesia of skin MD Office Visit 11/08/2016 2:15p Joe [facility]derick, R07.9 Chest pain, MD unspecified Office Visit 10/28/2016 3:30p Joe Broderick, R07.9 Chest pain, MD unspecified Office Visit 10/15/2016 1:00p Gauri Broderick, R59.0 Localized enlarged AUCTION ASSISTANT lymph nodes Office Visit 08/14/2016 10:45a Joe Broderick K51.20 Ulcerative (chronic) MD proctitis without complications D64.9 Anemia, unspecified Office Visit 08/10/2016 9:00a Gauri Broderick, R53.1 Weakness AUCTION ASSISTANT Office Visit 08/09/2016 8:45a Joe Broderick J30.9 Allergic rhinitis, unspecified H10.89 Other conjunctivitis Office Visit 07/24/2016 11:30a [facility], Joe, K51.20 Ulcerative (chronic) MD proctitis without complications [...] J47.9 Bronchiectasis, uncomplicated Office Visit 07/01/2016 10:00a [facility] Joe Herron MD K62.5 Hemorrhage of anus and rectum K51.211 Ulcerative (chronic) proctitis with rectal bleeding Office Visit 06/21/2016 8:45a [facility] Joe Herron, R31.9 Hematuria, unspecified MD R10.9 Unspecified abdominal pain K62.5 Hemorrhage of anus and rectum 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 Office Visit 06/14/2016 2:00p [facility] Minerva Rae PA Z01.419 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 furniture 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) (routine) w/o abn findings R31.9 Hematuria, 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 E80.4 Gilbert syndrome Office Visit 05/27/2016 9:45a [facility] Germaine, F80.1 Expressive language Gauri, AUCTION ASSISTANT disorder Office Visit 04/19/2016 3:15p [facility] Joe Herron, A09 Infectious MD gastroenteritis and colitis, unspecified E80.4 Gilbert syndrome 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 R21 Rash and other nonspecific skin eruption Office Visit 04/16/2016 1:00p [facility] Minerva Rae, A09 Infectious PA gastroenteritis and colitis, unspecified Office Visit 04/11/2016 9:45a [facility] Minerva Rae, B35.9 Dermatophytosis, PA unspecified Office Visit 03/20/2016 1:15p [facility] Minerva Rae, R30.0 Dysuria PA Office Visit 02/19/2016 4:30p [facility] Germaine, H81.399 Other peripheral MD Joe vertigo, unspecified ear Office Visit 01/02/2016 3:45p [facility] Germaine, E78.9 Disorder of lipoprotein MD Joe metabolism, 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 K29.50 Unspecified chronic gastritis without bleeding J47.9 Bronchiectasis, uncomplicated J31.0 Chronic rhinitis D70.9 Neutropenia, unspecified M15.9 Polyosteoarthritis, unspecified D64.9 Anemia, unspecified 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, multiple sites Office Visit 11/17/2015 9:30a [facility] Joe Herron, M25.551 Pain in RIGHT hip MD Office Visit 10/28/2015 10:30a [facility] Minerva Rae PA J02.9 Acute pharyngitis, unspecified Office Visit 09/20/2015 1:45p [facility] Gauri Herron, J06.9 Acute upper AUCTION ASSISTANT respiratory infection, unspecified Office Visit 08/15/2015 11:00a [facility] Minerva Rae PA K29.50 Unspecified chronic gastritis without bleeding Office Visit 06/27/2015 3:45p [facility] Joe Herron J01.90 Acute sinusMD casey unspecified 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, 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 K29.50 Unspecified chronic gastritis without bleeding J47.9 Bronchiectasis, uncomplicated J31.0 Chronic rhinitis D70.9 Neutropenia, unspecified 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, multiple sites Office Visit 06/07/2015 10:30a Joe Broderick, H83.09 LabyrinthitisMD unspecified ear Office Visit 05/26/2015 2:15p [facility] Joe Herron J01.90 Acute sinusitisMD unspecified Office Visit 05/09/2015 3:30p Joe Broderick 786.9 Respiratory & Chest MD Symptoms Other 535.50 Gastritis & Gastroduodenitis Unspec W/O Hemorrhage Office Visit 04/21/2015 9:45a Joe Broderick 786.9 Respiratory & Chest MD Symptoms Other Office Visit 04/17/2015 10:30a [facility] Minerva Rae PA 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 V76.12 Screening Mammogram Malig Paulie Other Office Visit 02/03/2015 8:00a [facility] Gauri Herron, 461.9 Sinusitis Acute AUCTION ASSISTANT Unspec Office Visit 12/20/2014 3:45p [facility] Joe Herron MD 461.9 Sinusitis Acute Unspec 494.0 Bronchiectasis Without Acute Exacerbation 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.90 Bone & Cartilage Disorder Unspec 592.0 Calculus Of Kidney 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 535.50 Gastritis & Gastroduodenitis Unspec W/O Hemorrhage 715.00 Osteoarthrosis Generalized Site Unspec V58.69 Medications Penitentiary (Current) Use Encounter Office Visit 11/26/2014 11:00a [facility] Joe Herron, 789.03 Pain Abdominal RIGHT MD Lower Quadrant Office Visit 11/07/2014 3:30p [facility] Joe Herron, 494.0 Bronchiectasis Without MD Acute Exacerbation 592.0 Calculus Of Kidney Plan of Treatment Future Appointment(s):02/23/2019 7:50 am - Schedule, Laboratory at [facility]2018 1:00 pm - Joe Herron MD at [facility]11/23/2018 - Gauri Herron NPR31.9 Hematuria, unspecifiedComments:Increase fluid intakeWill check urine cytology and urine cultureMonitor symptomsLet us know if this is suspected to be vaginalReferral:Chandana Meadows,Follow up:PRN for any pain, fever or increase in bleeding
[2018-11-28 07:45] VITALS: BP 108/63
--- NOTE | 2018-11-28 08:16 | UC ---
Skin Complaint HPI - HPI Summary HPI Summary: Pt presents with continued c/o anal itching that worsens at night. Pt was seen here on 11/23/18 and was examined and evaluated for hemorrhoids and pin worm. Pt followed instructions and applied scotch tape to anus at night and has brought the tape in for examination. - History of Current Complaint Chief Complaint: UCGI Time Seen by Provider: 11/28/18 08:04 Stated Complaint: PERSONAL Hx Obtained From: Patient ?: No Onset/Duration: Sudden Onset, Lasting Days, Still Present Skin Exposure Onset/Duration: Days Ago Timing: Constant - worsens at night Onset Severity: Mild Current Severity: Mild Pain Intensity: 0 Location: Discrete - anus Character: Pruritus Aggravating Factor(s): Other - rest, night time Alleviating Factor(s): Nothing Associated Signs & Symptoms: Positive: Negative - Allergy/Home Medications Allergies/Adverse Reactions: Allergies Allergy/AdvReac Type Severity Reaction Status Date / Time Sulfa (Sulfonamide Allergy Rash And Verified 11/23/18 15:17 Antibiotics) Itching Tetracyclines AdvReac GI Upset Verified 11/28/18 07:45 PMH/Surg Hx/FS Hx/Imm Hx Previously Healthy: Yes - Surgical History Surgical History: Yes Surgery Procedure, Year, and Place: 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 - Family History Known Family History: Positive: None, Other - TIAs Negative: Cardiac Disease, Hypertension, Diabetes - Social History Occupation: Employed Full-time Lives: With Family Alcohol Use: None Substance Use Type: None Smoking Status (MU): Never Smoked Tobacco Have You Smoked in the Last Year: No - Immunization History Most Recent Influenza Vaccination: Not the Season Vaccination Up to Date: No Review of Systems All Other Systems Reviewed And Are Negative: Yes Constitutional: Positive: Negative Skin: Positive: Other - itching at anus Eyes: Positive: Negative ENT: Positive: Negative Respiratory: Positive: Negative Cardiovascular: Positive: Negative Gastrointestinal: Positive: Negative Genitourinary: Positive: Other - anal itching Motor: Positive: Negative Neurovascular: Positive: Negative Musculoskeletal: Positive: Negative Neurological: Positive: Negative Psychological: Positive: Negative Is Patient Immunocompromised?: No Physical Exam Triage Information Reviewed: Yes Appearance: Well-Appearing Vital Signs: Initial Vital Signs Temp 97.7 F 11/28/18 07:36 Pulse 70 11/28/18 07:36 Resp 16 11/28/18 07:36 BP 108/63 11/28/18 07:36 Pulse Ox 99 11/28/18 07:36 Vital Signs Reviewed: Yes Eye Exam: Normal ENT Exam: Normal Dental Exam: Normal Neck exam: Normal Respiratory: Positive: No respiratory distress Cardiovascular Exam: Normal Abdominal Exam: Normal Musculoskeletal Exam: Normal Neurological Exam: Normal Psychological Exam: Normal Skin Exam: Normal - Additional Comments Pt showed me scotch tape example and on visual exam there appeared to be small organisms that looked like pin worms Course/Dx - Differential Diagnoses - Skin Complaint Differential Diagnoses: Other - anal itching - Diagnoses Provider Diagnosis: Anal itching Discharge - Sign-Out/Discharge Documenting (check all that apply): Patient Departure All imaging exams completed and their final reports reviewed: No Studies - Discharge Plan Condition: Stable Disposition: HOME Prescriptions: Albendazole 400 mg PO ONCE #4 tablet Patient Education Materials: Anal Itching (ED) Referrals: No Primary Care Phys,NOPCP [Primary Care Provider] - [facility] [Outside] - If Needed - Billing Disposition and Condition Condition: STABLE Disposition: Home - Attestation Statements Provider Attestation: I was available for consult. This patient was seen by the [facility]. The patient was not presented to, seen by, or examined by me. EK
== END 2018-11-28 08:31 | disposition home or self-care (01) ==
LOC: UCCORT 07:07
DX: L29.0 Pruritus ani (principal); Z88.1 Allergy status to other antibiotic agents; Z88.2 Allergy status to sulfonamides
CPT/HCPCS: 99212; G0463

== ENCOUNTER 2018-12-21 08:49 | Emergency (ER) | payer MEDICARE, BC ==
[2018-12-21 10:20] VITALS: BP 133/45
--- NOTE | 2018-12-21 10:34 | UC ---
UC General HPI - HPI Summary HPI Summary: pt c/o anal itching and burning for about 1.5 months. she was here on 11/23 and advised to do tape to check for pinworms. she saw Dr Daley, her GI on 11/24 whom looked at her rectum and advised her he didn't see pinworms and advised people here don't really get that here. she returned here on 11/28 and was tx with albendazole the same day and it was repeated 2 weeks later. she returns for ongoing s/s's. she notes the itching is worse at night. she has tried a&d ointment plus vasoline with no relief. she refuses to try any hemorrhoid tx's because she has had them and this is not hemorrhoids. she has no fever or abdominal pain. she does have ulcerative colitis and proctitis from the UC. - History of Current Complaint Chief Complaint: UCGeneralIllness Stated Complaint: PERSONAL Time Seen by Provider: 12/21/18 10:18 Hx Obtained From: Patient Pain Intensity: 0 Associated Signs & Symptoms: Negative: Abdominal Pain, Fever - Allergy/Home Medications Allergies/Adverse Reactions: Allergies Allergy/AdvReac Type Severity Reaction Status Date / Time Sulfa (Sulfonamide Allergy Rash And Verified 12/21/18 10:11 Antibiotics) Itching Tetracyclines AdvReac GI Upset Verified 12/21/18 10:11 PMH/Surg Hx/FS Hx/Imm Hx - Additional Past Medical History Additional PMH: cva, ulcerative colitis with proctitis - Surgical History Surgical History: Yes Surgery Procedure, Year, and Place: 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 Negative: Abdominal Pain, Vomiting, Nausea Physical Exam Triage Information Reviewed: Yes Appearance: Well-Appearing Vital Signs: Initial Vital Signs Temp 97.9 F 12/21/18 10:16 Pulse 60 12/21/18 10:16 Resp 14 12/21/18 10:16 BP 133/45 12/21/18 10:16 Pulse Ox 100 12/21/18 10:16 Vital Signs Reviewed: Yes Eyes: Positive: Conjunctiva Clear ENT: Positive: Pharynx normal, TMs normal. Negative: Nasal congestion, Nasal drainage Neck: Positive: Supple, Nontender, No Lymphadenopathy Respiratory: Positive: Lungs clear, Normal breath sounds Cardiovascular: Positive: RRR, No Murmur Abdomen Description: Positive: Nontender, No Organomegaly, Soft, Other: - Rectum has not fissures, lesions or inflammed hemorrhoids. Digital exam showed soft stool and no pinworms.. Negative: Distended, Guarding Bowel Sounds: Positive: Present Musculoskeletal: Positive: ROM Intact Neurological: Positive: Alert Psychological: Positive: Age Appropriate Behavior Skin Exam: Normal Course/Dx - Differential Dx - Multi-Symptom Differential Diagnoses: Other - non toxic. no acute abdomen. rectal exam unremarkable and pt already tx for pinworms. internal hemorrhoid discomfort still possible as is discomfort from her IBD thus will trial a rectal suppository steroid with close f/u pcp or her gi. - Diagnoses Provider Diagnosis: Anal burning, Anal itching Discharge - Sign-Out/Discharge Documenting (check all that apply): Patient Departure All imaging exams completed and their final reports reviewed: No Studies - Discharge Plan Condition: Stable Disposition: HOME Prescriptions: Hydrocortisone SUPP* [Anusol Hc Supp*] 25 mg MO BID 5 Days #10 supp Patient Education Materials: Anal Itching (ED) Referrals: Joe Herron MD [Medical Doctor] - 5 Days Additional Instructions: FOLLOW UP WITH YOUR PRIMARY CARE OR GI IN 5-7 DAYS FOR A RECHECK. STOP ALL PRIOR TOPICAL TREATMENTS. - Billing Disposition and Condition Condition: STABLE Disposition: Home - Attestation Statements Provider Attestation: I was available for consult. This patient was seen by the [facility]. The patient was not presented to, seen by, or examined by me. -Autumn
== END 2018-12-21 11:51 | disposition home or self-care (01) ==
LOC: UCCORT 08:49
DX: L29.0 Pruritus ani (principal); K62.89 Other specified diseases of anus and rectum; R19.5 Other fecal abnormalities; Z88.2 Allergy status to sulfonamides; Z88.1 Allergy status to other antibiotic agents
CPT/HCPCS: 99212; G0463

== ENCOUNTER 2019-05-23 07:47 | Emergency (ER) | payer MEDICARE, BC ==
[2019-05-23 08:13] VITALS: BP 101/51
--- NOTE | 2019-05-23 08:38 | UC ---
FLU HPI - HPI Summary HPI Summary: Pt presents with c/o sudden onset of night sweats, chills, body aches, diarrhea (that has since resolved),X 4 days. Pt also reports that she has been "napping more frequently" and has had woken with her "clothes drenched" with sweat 3X's Pt also has c/o of burning with urination. - History of Current Complaint Chief Complaint: UCGeneralIllness Stated Complaint: [facility] [place]S Time Seen by Provider: 05/23/19 08:14 Hx Obtained From: Patient ?: No Onset/Duration: Sudden Onset, Lasting Days, Still Present Severity Currently: Moderate Severity Initially: Mild Pain Intensity: 5 Associated Signs & Symptoms: Positive: Myalgia, Diarrhea - resolved Related Hx: Possible Flu/Infectious Exposure - Risk Factors Influenza Risk Factors: Negative - Allergy/Home Medications Allergies/Adverse Reactions: Allergies Allergy/AdvReac Type Severity Reaction Status Date / Time Sulfa (Sulfonamide Allergy Rash And Verified 05/23/19 08:01 Antibiotics) Itching Tetracyclines AdvReac GI Upset Verified 05/23/19 08:01 Home Medications: Home Medications Acetaminophen [Acetaminophen Extra Strength] 1,000 mg PO Q6H 05/23/19 [History Confirmed 05/23/19] Hydrocortisone SUPP* [Anusol Hc Supp*] 25 mg ME BID PRN 05/23/19 [History Confirmed 05/23/19] PMH/Surg Hx/FS Hx/Imm Hx Previously Healthy: Yes Cardiovascular History: Cardiac Disease GI/ History: Other - colitis - Surgical History Surgical History: Yes Surgery Procedure, Year, and Place: 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 - Family History Known Family History: Positive: None, Other - TIAs Negative: Cardiac Disease, Hypertension, Diabetes - Social History Occupation: Retired Lives: With Family Alcohol Use: None Substance Use Type: None Smoking Status (MU): Never Smoked Tobacco Have You Smoked in the Last Year: No - Immunization History Most Recent Influenza Vaccination: Not the 2014/2015 Season Vaccination Up to Date: No Review of Systems All Other Systems Reviewed And Are Negative: Yes Constitutional: Positive: Fever, Chills, Fatigue Skin: Positive: Negative Eyes: Positive: Negative ENT: Positive: Negative Respiratory: Positive: Negative Cardiovascular: Positive: Negative Gastrointestinal: Positive: Abdominal Pain, Diarrhea - resolved Genitourinary: Positive: Dysuria Motor: Positive: Negative Neurovascular: Positive: Negative Musculoskeletal: Positive: Myalgia Neurological: Positive: Negative Psychological: Positive: Negative Is Patient Immunocompromised?: No Physical Exam Triage Information Reviewed: Yes Appearance: Well-Appearing Vital Signs: Initial Vital Signs Temp 97.5 F 05/23/19 08:06 Pulse 84 05/23/19 08:06 Resp 16 05/23/19 08:06 BP 101/51 05/23/19 08:06 Pulse Ox 98 05/23/19 08:06 Vital Signs Reviewed: Yes Eye Exam: Normal ENT Exam: Normal Dental Exam: Normal Neck exam: Normal Respiratory Exam: Normal Cardiovascular Exam: Normal Musculoskeletal Exam: Normal Neurological Exam: Normal Psychological Exam: Normal Skin Exam: Normal Flu Course/Dx - Differential Dx/Diagnosis Differential Diagnosis/HQI/PQRI: Influenza, Upper Respiratory Infection Provider Diagnosis: Viral syndrome Discharge ED - Sign-Out/Discharge Documenting (check all that apply): Patient Departure All imaging exams completed and their final reports reviewed: No Studies - Discharge Plan Condition: Stable Disposition: HOME Patient Education Materials: Viral Syndrome (ED) Referrals: Joe Herron MD [Primary Care Provider] - If Needed Additional Instructions: Please follow up with your PCP as needed. If your symptoms worsen please seek care at the closest health care facility as soon as possible. - Billing Disposition and Condition Condition: STABLE Disposition: Home
[2019-05-23 08:41] LABS: Influenza A Molecular NEGATIVE (Negative); Influenza B Molecular NEGATIVE (Negative)
== END 2019-05-23 09:01 | disposition home or self-care (01) ==
LOC: UCCORT 07:47
DX: B34.9 Viral infection, unspecified (principal); Z88.1 Allergy status to other antibiotic agents
CPT/HCPCS: 81003; 99211; G0463